=== PATIENT | male | born 1940 | race Two or more races ===

== ENCOUNTER 2018-04-04 16:46 | Inpatient (IN) | payer MEDICARE, MEDICAID ==
--- NOTE | 2018-04-04 16:55 | ED Physician Chart ---
ED Chief Complaint/HPI - Patient Information Date Seen:: 04/04/18 Time Seen:: 16:45 Chief Complaint:: Urinary Retention History of Present Illness:: onset x 3 days of AMS, ALOC, and urinary retention; no report of trauma, H/As, S /T, neck pain, C/P, SOB, Abd. Pain, A/N/V/D/C, fever, chills, or bleeding Historian:: Patient, EMS Review:: Nurse's Note Reviewed, Old Chart Reviewed, EMS run form Reviewed ED Review of Systems - Review of Systems General/Constitutional: No fever, No chills, No weight loss, Weakness, No diaphoresis, No edema, No loss of appetite Skin: No skin lesions, No rash, No bruising Head: No headache, No light-headedness Eyes: No loss of vision, No pain, No diplopia ENT: No earache, No nasal drainage, No sore throat, No tinnitus Neck: No neck pain, No swelling, No thyromegaly, No stiffness, No mass noted Cardio Vascular: No chest pain, No palpitations, No PND, No orthopnea, No edema Pulmonary: No SOB, No cough, No sputum, No wheezing GI: No nausea, No vomiting, No diarrhea, No pain, No melena, No hematochezia, No constipation, No hematemesis G/U: No dysuria, No frequency, No hematuria, No nacturia, Other (urinary retention) Musculoskeletal: No bone or joint pain, No back pain, No muscle pain Endocrine: No polyuria, No polydipsia Psychiatric: No prior psych history, No depression, No anxiety, No suicidal ideation, No homicidal ideation, No auditory hallucination, No visual hallucination Hematopoietic: No bruising, No lymphadenopathy Allergic/Immuno: No urticaria, No angioedema Neurological: No syncope, No focal symptoms, Weakness, No paresthesia, No headache, No seizure, No dizziness, Confusion, No vertigo ED Past Medical History - Past Medical History Obtainable: Yes Past Medical History: HTN, Dyslipidemia Family History: HTN Social History: Non Smoker, No Alcohol, No Drug Use, Single, Care Facility Surgical History: None Psychiatricy History: None Medication: Reviewed Family Medical History - Family Member Mother History Unknown: Yes ED Physical Exam - Physical Examination General/Constitutional: Awake, Well-developed, well-nourished, Alert, No distress, GCS 15, Non-toxic appearing, Ambulatory Head: Atraumatic Eyes: Lids, conjuctiva normal, PERRL, EOMI Skin: Nl inspection, No rash, No skin lesions, No ecchymosis, Well hydrated, No lymphadenopathy ENMT: External ears, nose nl, TM canals nl, Nasal exam nl, Lips, teeth, gums nl , Oropharynx nl, Tonsils nl Neck: Nontender, Full ROM w/o pain, No JVD, No nuchal rigidity, No bruit, No mass, No stridor Respiratory: Nl effort/Exclusion, Clear to Auscultation, No Wheeze/Rhonchi/Rales Cardio Vascular: RRR, No murmur, gallop, rubs, NL S1 S2, Carotid/Femoral/Distal pulses equal bilaterally GI: No tenderness/rebounding/guarding, No organomegaly, No hernia, Normal BS's, Nondistended, No mass/bruits, No McBurney tenderness, Rectum exam nl Other GI comments:: no pulsatile masses : No CVA tenderness Other comments:: + Suprapubic distention 2ndary to Bladder Distention 2ndary to Urinary Retention Extremities: No tenderness or effusion, Full ROM, normal strength in all extremities, No edema, Normal digits & nails Neuro/Psych: Alert/oriented, DTR's symmetric, Normal sensory exam, Normal motor strength, Judgement/insight normal, Mood normal, Normal gait, No focal deficits Other Neuro/Psych comments:: no focal signs Misc: Normal back, No paraspinal tenderness ED Labs/Radiology/EKG Results - Lab Results Comments:: Reviewed - Radiology Results Comments:: CXR: NAD - EKG Interpretations EKG Time:: 17:27 Rate & Rhythm: 56; SB Comments:: non-specific st-t changes ED Septic Shock - . Is Septic Shock (SBP<90, OR Lactate>4 mmol\L) present?: No ED Reassessment (Disposition) - Reassessment Reassessment Condition:: Improved - Diagnosis Diagnosis:: Dx: Urinary Retention; Hyponatremia; Hyperglycemia; Hypoalbuminemia; Bradycardia ; Hematuria; UTI; Sepsis - Aftercare/Follow up Instructions Aftercare/Follow-Up Instructions:: Counseled pt regarding lab results/diagnosis & need follow up, Counseled pt & family regarding lab results/diagnosis & need follow up - Patient Disposition Discharge/Transfer:: Acute Care w/in this hosp Accepting Physician:: Dr. Brittany Espitia Time Called:: 1899 Time Responded:: 19:00 Admitted to:: Telemetry Spoke to:: Dr. Brittany Espitia Admitting Medical Physician:: Dr. Brittany Espitia Condition at Disposition:: Stable, Improved
[2018-04-04 17:35] LABS: % BASOPHILS 1.2 % (0.0-2.0); % LYMPHOCYTES 33.9 % (20.0-50.0); % MONOCYTES 5.3 % (2.0-10.0); % NEUTROPHILS 55.6 % (40.0-80.0); BASOPHILE ABSOLUTE 0.1 Th/cumm (0-0.2); EOSINOPHILE ABSOLUTE 0.2 Th/cmm (0.1-0.4); HEMATOCRIT 44.1 % (41.0-60); HEMOGLOBIN 14.6 gm/dL (12-16); LYMPHOCYTE ABSOLUTE 1.9 Th/cmm (1.5-3.0); MEAN CELL VOLUME 85.9 fl (80-99); MEAN CORPUSCULAR HEMOGLOBIN 28.5 pg (27.0-31.0); MEAN CORPUSCULAR HGB CONC 33.1 pg (28.0-36.0); MEAN PLATELET VOLUME 8.4 fl; MONOCYTE ABSOLUTE 0.3 Th/cmm (0.3-1.0); NEUTROPHILE ABSOLUTE 3.1 Th/cmm (1.8-8.0); PLATELET COUNT 237 Th/cmm (150-400); RED BLOOD COUNT 5.13 Mil/cmm (3.80-5.80); RED CELL DISTRIBUTION WIDTH 12.9 % (11.5-20.0); WHITE BLOOD COUNT 5.6 Th/cmm (4.8-10.8)
[2018-04-04 17:51] LABS: INR 1.04 (0.5-1.4); PROTHROMBIN TIME (TEST) 10.8 SECONDS (9.5-11.5)
[2018-04-04 17:52] LABS: ALB/GLOB RATIO 1.2 (1.0-1.8); ALBUMIN 3.6 gm/dL (4.2-5.5); ALKALINE PHOSPHATASE 81 U/L (34-104); ANION GAP 12.2 (7.0-16.0); BILIRUBIN,TOTAL 0.4 mg/dL (0.3-1.0); BUN - UREA NITROGEN 20 mg/dL (7-25); CALCIUM SERUM 8.9 mg/dL (8.6-10.3); CHLORIDE 102 mEq/L (98-107); CREATININE - SERUM 1.5 mg/dL (0.7-1.3); CREATININE KINASE 22 U/L (30-223); GLUCOSE 122 mg/dL (70-105); POTASSIUM SERUM 4.2 mEq/L (3.5-5.1); SGOT 14 U/L (13-39); SGPT/ALT 15 U/L (7-52); SODIUM SERUM 135 mEq/L (136-145); TOTAL PROTEIN,SERUM 6.5 gm/dL (6.0-8.3)
[2018-04-04 18:04] LABS: URINE SOURCE MIDSTREAM
[2018-04-04 18:24] LABS: URINE BILIRUBIN NEGATIVE (NEGATIVE); URINE BLOOD SMALL (NEGATIVE); URINE GLUCOSE (UA) NEGATIVE (NEGATIVE); URINE KETONE NEGATIVE (NEGATIVE); URINE LEUKOCYTE ESTERASE MODERATE (NEGATIVE); URINE MICROSCOPIC INDICATED? YES; URINE NITRATE POSITIVE (NEGATIVE); URINE PROTEIN NEGATIVE (NEGATIVE); URINE UROBILINOGEN 0.2 E.U./dL (0.2 - 1.0)
[2018-04-04 18:28] LABS: URINE CLARITY HAZY (CLEAR); URINE COLOR YELLOW
[2018-04-04 18:40] LABS: TROP I < 0.01 ng/mL (0.01-0.05)
[2018-04-04 18:58] LABS: URINE BACTERIA MANY /hpf (NONE SEEN); URINE EPITHELIAL CELLS FEW /lpf (FEW)
[2018-04-04] MEDS ORDERED: cefTRIAXone 1 GM in Sodium Chloride 0.9% 50 ML IV ONE (19:29)
[2018-04-04 22:32] VITALS: BP 134/74
[2018-04-04] MEDS: cefTRIAXone 1 GM in Sodium Chloride 0.9% 50 ML IV SCH (23:23)
--- NOTE | 2018-04-05 05:21 | History & Physical ---
ADMIT DATE: 04/05/2018 CHIEF COMPLAINT: Urinary retention. HISTORY OF PRESENT ILLNESS: The patient is a 77-year-old male with a past medical history of hypertension, who dropped by some unknown people ____ to the ER for change in mental status. The patient also found to have urinary retention. On initial evaluation, the patient was afebrile and patient's WBC count was 5600. Creatinine was 1.5. Urinalysis showed pyuria and bacteriuria. The patient was admitted with diagnosis of UTI. Rocephin IV was given in the ER and continued. ALLERGIES: NKDA. MEDICATIONS: There is no information medication. PAST MEDICAL HISTORY: Includes hypertension. SOCIAL HISTORY: The patient stated that he lives in [place]. No history of smoking, alcohol or drug use. REVIEW OF SYSTEMS: GENERAL: The patient denies any fever or chills. HEENT: No diplopia, no photophobia, no sore throat. RESPIRATORY: No cough, no shortness of breath. CARDIOVASCULAR: No chest pain or palpitation. GASTROINTESTINAL: No nausea, no vomiting, no diarrhea, no constipation. GENITOURINARY: No dysuria. NEUROLOGIC: No headache, no dizziness, no focal weakness. PHYSICAL EXAMINATION: GENERAL: The patient is demented. VITAL SIGNS: Current vital signs shows temperature is 97 degrees Fahrenheit, pulse 58, respiration 20, blood pressure 134/74. GENERAL: The patient is comfortable, lying in the bed, not in acute distress. HEENT: Head is normocephalic, atraumatic. Oral cavity moist, pink tongue. Eyes: Pallor is present, no icterus. PERRLA, EOMI. NECK: Supple, no JVD, no carotid bruit. Trachea in midline. CHEST: Bilateral breath sounds. No crackles or wheezing. HEART: S1, S2 within normal limits. Regular rhythm. No murmur, no gallop. ABDOMEN: Soft, nontender, nondistended. Bowel sounds present. There is a Daugherty catheter in place. BACK: No spinal nor CVA tenderness. EXTREMITIES: No cyanosis, no clubbing, no edema. NEUROLOGIC: Alert, awake, follows the command. LABORATORY DATA: Current lab shows WBC of 5600, hemoglobin 14.6, platelets are 237,000, neutrophils 55.6%. INR 1.04. Sodium is 135, potassium 4.2, chloride 102, bicarbonate is 25, BUN is 20, creatinine 1.5 and glucose is 122. Lactic acid 1.15. LFTs are reviewed. Urinalysis showed positive nitrite, leukocyte esterase moderate, WBC 10-25, many bacteria. IMPRESSION: 1. Urinary tract infection. 2. Renal insufficiency, azotemia. 3. Hypertension. 4. Dementia. RECOMMENDATIONS AND PLAN: We will continue Rocephin. Check renal ultrasound. The patient might have prostatomegaly, BPH, ____. We will ask for Nephrology consult, Dr. Warren Rhodes. 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 JOB# [id number] GET
[2018-04-05 05:23] LABS: % BASOPHILS 0.4 % (0.0-2.0); % EOSINOPHILS 3.4 % (0.0-5.0); % LYMPHOCYTES 26.1 % (20.0-50.0); % MONOCYTES 5.2 % (2.0-10.0); % NEUTROPHILS 64.9 % (40.0-80.0); EOSINOPHILE ABSOLUTE 0.2 Th/cmm (0.1-0.4); HEMATOCRIT 42.2 % (41.0-60); LYMPHOCYTE ABSOLUTE 1.6 Th/cmm (1.5-3.0); MEAN CELL VOLUME 84.5 fl (80-99); MEAN CORPUSCULAR HEMOGLOBIN 28.1 pg (27.0-31.0); MEAN CORPUSCULAR HGB CONC 33.2 pg (28.0-36.0); MONOCYTE ABSOLUTE 0.3 Th/cmm (0.3-1.0); NEUTROPHILE ABSOLUTE 4.2 Th/cmm (1.8-8.0); PLATELET COUNT 216 Th/cmm (150-400); RED BLOOD COUNT 4.99 Mil/cmm (3.80-5.80); RED CELL DISTRIBUTION WIDTH 12.6 % (11.5-20.0); WHITE BLOOD COUNT 6.3 Th/cmm (4.8-10.8)
[2018-04-05 06:25] LABS: ALB/GLOB RATIO 1.2 (1.0-1.8); ALBUMIN 3.3 gm/dL (4.2-5.5); ALKALINE PHOSPHATASE 81 U/L (34-104); BILIRUBIN,TOTAL 0.5 mg/dL (0.3-1.0); BUN - UREA NITROGEN 18 mg/dL (7-25); CALCIUM SERUM 8.9 mg/dL (8.6-10.3); CARBON DIOXIDE 26.3 mEq/L (21.0-31.0); CHLORIDE 106 mEq/L (98-107); GLUCOSE 117 mg/dL (70-105); POTASSIUM SERUM 4.3 mEq/L (3.5-5.1); SGOT 12 U/L (13-39); SGPT/ALT 14 U/L (7-52); SODIUM SERUM 142 mEq/L (136-145)
--- NOTE | 2018-04-05 09:08 | Diagnostic Imaging Report ---
Portable chest x-ray HISTORY: Pain The heart appears somewhat enlarged. No focal pulmonary processes. No hilar or mediastinal abnormalities. IMPRESSION: 1. No acute abnormalities 2. Cardiomegaly
--- NOTE | 2018-04-05 14:56 | Consultation ---
DATE OF CONSULTATION: 04/05/2018 RENAL CONSULTATION LOCATION: [facility], room #15, bed 2. ATTENDING PHYSICIAN: Dr. Rod Espitia. IDENTIFICATION: I thank you very much, Dr. Rod Espitia for this consult. HISTORY OF PRESENT ILLNESS: This is a 77-year-old male patient, seems to be confused, not able to give much history, answering the questions very shortly. Old chart has been reviewed for history. The patient is either living at home or living at here some friend's home, but was brought to the Emergency Room of [facility] and then the people who brought the patient in left. The patient was confused and patient had urinalysis, shows pyuria. Creatinine was elevated at 1.5. The patient received IV Rocephin and IV fluid in the Emergency Room. The patient is making urine. The patient was transferred to the floor. Renal consultation has been requested. According to nursing staff since the patient has been here that patient does not have any vomiting or diarrhea. There is no history of seizures or loss of consciousness. The patient has become more alert in the last 24 hours than before, but still he is not giving a lot of meaningful history. ALLERGIES: Not known. MEDICATIONS: No information available. PAST MEDICAL HISTORY: The patient states that he has high blood pressure. SOCIAL HISTORY: The patient denies alcoholism or smoking. The patient states that he lives in [place]. PHYSICAL EXAMINATION: GENERAL: A 77-year-old male patient. VITAL SIGNS: Temperature 97.3, pulse 60, blood pressure 133/77. Yesterday's intake and output not available. Today, the patient has cloudy colored urine about 400 mL in Daugherty catheter. HEENT: Normocephalic and atraumatic. Eyes: Sclerae is nonicteric. Conjunctivae are pale. Pupils reactive. Ear, nose and throat: No bleeding or discharge. LUNGS: Good air entry. No rales or rhonchi. HEART: Regular. No rub or gallop. ABDOMEN: Soft, not distended. Bowel sounds present. EXTREMITIES: No edema of the legs. No calf tenderness. LABORATORY DATA: WBC yesterday was 5.6, today 6.3; hemoglobin 14.6, today 14. Sodium yesterday was 135, today improved to 142; potassium has improved from 4.2-4.3, BUN 20, creatinine 1.5 yesterday and today 1.0, blood sugar 117 today. LFTs normal. Urinalysis: Nitrite positive. Urine blood positive, WBC positive, bacteria many. Urine culture not available. IMPRESSION: 1. Acute kidney injury, improving. 2. Urinary tract infection. 3. History of hypertension. 4. Change in mental status. 5. Dementia. 6. Mild anemia. PLAN: The patient's acute kidney injury has improved. The patient is appropriately on IV antibiotics for a UTI. The patient has a good urine output at this time. Kidney ultrasound has been done, but report is not available. I will suggest to continue current treatment on this patient. Since the patient's acute kidney injury has improved with normal electrolytes, I will sign off this case and please call me if necessary. [facility]# [id number]
[2018-04-06] MEDS: cefTRIAXone 1 GM in Sodium Chloride 0.9% 50 ML IV SCH (00:40)
--- NOTE | 2018-04-06 09:49 | Diagnostic Imaging Report ---
Renal ultrasound HISTORY: Pain, pyelonephritis The right kidney measures 9.3 x 5.3 x 5.9 cm. Normal cortical contour and echogenicity. No focal lesions. No hydronephrosis. The left kidney is normal in size (10.4 x 5.4 x 5.5 cm). No focal lesions. No hydronephrosis. Evaluation urinary bladder limited due to lack of distention. There appears to be an enlarged prostate gland (6.6 x 6.2 x 5.3 cm). IMPRESSION: 1. Negative examination of the kidneys 2. Findings consistent with an enlarged prostate gland. Urinary bladder could not be well evaluated due to lack of distention.
--- NOTE | 2018-04-07 05:03 | Progress Notes ---
DATE: 04/06/2018 SUBJECTIVE: The patient lying in the bed, not in acute distress, no fever, no chills. OBJECTIVE: VITAL SIGNS: Current vital signs shows temperature is 97.4, pulse 64, respirations 17, blood pressure 134/81. GENERAL: The patient is comfortable lying in the bed, not in acute distress. HEENT: Head is normocephalic, atraumatic. Oral cavity moist, pink tongue. NECK: Supple, no JVD, no carotid bruit. Trachea in midline. CHEST: Bilateral breath sounds. No crackles or wheezing. HEART: S1, S2 within normal limits. Regular rhythm. No murmur, no gallop. ABDOMEN: Soft, nontender, nondistended. Bowel sounds present. EXTREMITIES: No cyanosis, no clubbing, no edema. NEUROLOGIC: Alert and awake, but confused. LABORATORY DATA: Current lab shows WBC count 6300, hemoglobin 14, hematocrit 42.2, platelets are 216,000. Neutrophil is 64.9. Sodium 142, potassium 4.3, chloride 106, bicarbonate is 26.3, BUN is 18, creatinine 1, glucose is 117. Urinalysis showed positive nitrite, moderate leukoesterase and wbc 10-25 and many bacteria. Urine culture is growing gram-negative rods. Blood culture 2 sets are negative. MRSA screen is negative. IMPRESSION: 1. Urinary tract infection. 2. Acute renal failure, improved. 3. Hypertension. 4. Dementia. RECOMMENDATION: Continue Rocephin at this time. Follow the urine culture report and go from there. I did a renal ultrasound showed negative examination of the kidney. Findings considered unless post-decline due to bladder could not be evaluated. ADDITIONAL PLAN: We will call Dr. Myers to see the patient. JOB# [id number]
[2018-04-07] MEDS ORDERED: POLYETHYLENE GLYCOL 3350 17 GM PACK PO ONE (18:30)
[2018-04-07] MEDS: cefTRIAXone 1 GM in Sodium Chloride 0.9% 50 ML IV SCH (22:08)
--- NOTE | 2018-04-09 00:01 | Infectious Disease Prog Note ---
Infectious Disease Subjective - Review of Systems Service Date: 04/08/18 Subjective: There is no new change, no fever. Infectious Disease Objective - Results Result Diagrams: 04/05/18 05:14 04/05/18 05:14 Recent Labs: Laboratory Last Values WBC 6.3 Th/cmm (4.8-10.8) 04/05/18 05:14 RBC 4.99 Mil/cmm (3.80-5.80) 04/05/18 05:14 Hgb 14.0 gm/dL (12-16) 04/05/18 05:14 Hct 42.2 % (41.0-60) 04/05/18 05:14 MCV 84.5 fl (80-99) 04/05/18 05:14 MCH 28.1 pg (27.0-31.0) 04/05/18 05:14 MCHC Differential 33.2 pg (28.0-36.0) 04/05/18 05:14 RDW 12.6 % (11.5-20.0) 04/05/18 05:14 Plt Count 216 Th/cmm (150-400) 04/05/18 05:14 MPV 8.0 fl 04/05/18 05:14 Neutrophils % 64.9 % (40.0-80.0) 04/05/18 05:14 Lymphocytes % 26.1 % (20.0-50.0) 04/05/18 05:14 Monocytes % 5.2 % (2.0-10.0) 04/05/18 05:14 Eosinophils % 3.4 % (0.0-5.0) 04/05/18 05:14 Basophils % 0.4 % (0.0-2.0) 04/05/18 05:14 PT 10.8 SECONDS (9.5-11.5) 04/04/18 17:20 INR 1.04 (0.5-1.4) 04/04/18 17:20 PTT (Actin FS) 29.5 SECONDS (26.0-38.0) 04/04/18 17:20 Sodium 142 mEq/L (136-145) 04/05/18 05:14 Potassium 4.3 mEq/L (3.5-5.1) 04/05/18 05:14 Chloride 106 mEq/L (98-107) 04/05/18 05:14 Carbon Dioxide 26.3 mEq/L (21.0-31.0) 04/05/18 05:14 Anion Gap 14.0 (7.0-16.0) 04/05/18 05:14 BUN 18 mg/dL (7-25) 04/05/18 05:14 Creatinine 1.0 mg/dL (0.7-1.3) 04/05/18 05:14 Est GFR ( Amer) TNP 04/05/18 05:14 Est GFR (Non-Af Amer) TNP 04/05/18 05:14 BUN/Creatinine Ratio 18.0 04/05/18 05:14 Glucose 117 mg/dL (70-105) H 04/05/18 05:14 Whole Bld Lactic Acid 1.15 mmol/L (0.60-1.99) 04/04/18 17:20 Calcium 8.9 mg/dL (8.6-10.3) 04/05/18 05:14 Total Bilirubin 0.5 mg/dL (0.3-1.0) 04/05/18 05:14 AST 12 U/L (13-39) L 04/05/18 05:14 ALT 14 U/L (7-52) 04/05/18 05:14 Alkaline Phosphatase 81 U/L (34-104) 04/05/18 05:14 Creatine Kinase 22 U/L (30-223) L 04/04/18 17:20 Troponin I < 0.01 ng/mL (0.01-0.05) L 04/04/18 17:20 Total Protein 6.0 gm/dL (6.0-8.3) 04/05/18 05:14 Albumin 3.3 gm/dL (4.2-5.5) L 04/05/18 05:14 Globulin 2.7 gm/dL 04/05/18 05:14 Albumin/Globulin Ratio 1.2 (1.0-1.8) 04/05/18 05:14 Urine Source MIDSTREAM 04/04/18 17:21 Urine Color YELLOW 04/04/18 17:21 Urine Clarity HAZY (CLEAR) 04/04/18 17:21 Urine pH 6.0 (4.6 - 8.0) 04/04/18 17:21 Ur Specific [place] 1.010 (1.005-1.030) 04/04/18 17:21 Urine Protein NEGATIVE mg/dL (NEGATIVE) 04/04/18 17:21 Urine Glucose (UA) NEGATIVE mg/dL (NEGATIVE) 04/04/18 17:21 Urine Ketones NEGATIVE mg/dL (NEGATIVE) 04/04/18 17:21 Urine Blood SMALL (NEGATIVE) H 04/04/18 17:21 Urine Nitrate POSITIVE (NEGATIVE) H 04/04/18 17:21 Urine Bilirubin NEGATIVE (NEGATIVE) 04/04/18 17:21 Urine Urobilinogen 0.2 E.U./dL (0.2 - 1.0) 04/04/18 17:21 Ur Leukocyte Esterase MODERATE (NEGATIVE) H 04/04/18 17:21 Urine RBC 2-5 /hpf (0-5) H 04/04/18 17:21 Urine WBC 10-25 /hpf (0-5) H 04/04/18 17:21 Ur Epithelial Cells FEW /lpf (FEW) 04/04/18 17:21 Urine Bacteria MANY /hpf (NONE SEEN) H 04/04/18 17:21 - Physical Exam Vitals and I&O: Vital Signs Temp 97.2 F 04/08/18 20:00 Pulse 67 04/08/18 20:00 Resp 17 04/08/18 20:00 BP 130/70 04/08/18 20:00 Pulse Ox 97 04/08/18 20:00 Intake & Output 04/08/18 04/08/18 04/09/18 06:59 18:59 06:59 Intake Total 200 661 Output Total 1250 775 Balance -1050 -114 Weight (lbs) 68.946 kg 69.808 kg Intake: Intake, IV Amount 111 Tobramycin Sulfate 440 mg 111 In Sodium Chloride 0.9% 100 ml @ 100 mls/hr IV Q36H [facility] Rx#:[id number] Oral 200 550 Output: Urine 1250 775 Other: # Voids 750 # Bowel Movements 0 1 Weight Source Bedscale Bedscale Active Medications: Current Medications Tobramycin Sulfate 440 mg/ (Sodium Chloride) 111 mls @ 100 mls/hr IV Q36H ALONDRA Stop: 06/07/18 12:29 Last Infusion: 04/08/18 18:17 Dose: Infused Miscellaneous (Tobramycin Iv Per Pharmacy) 1 ea MC PRN PRN PRN Reason: PROTOCOL Stop: 06/07/18 10:33 Pantoprazole Sodium (Protonix) 40 mg IVP DAILY ALONDRA Stop: 06/04/18 08:59 Last Admin: 04/08/18 09:18 Dose: 40 mg General: no acute distress, well developed, well nourished HEENT: atraumatic, normocephalic, PERRLA Neck: supple, no thyromegaly Cardiovascular: S1S2, regular Lungs: clear to auscultation bilaterally, clear to percussion Abdomen: soft, no tender, no distended Extremities: no cyanosis, no clubbing Neurological: awake, alert, oriented Skin: intact Infectious Disease Assmt/Plan - Problem List Patient Problems: All Active Problems URINARY RETENTION; SNF PLACEMENT (Acute) - Assessment Assessment: 1. Urinary tract infection. - Pseudomonas. 2. Renal insufficiency, azotemia. 3. Hypertension. 4. Dementia. - Plan Plan: Continue Tobramycin for 7 days. Nutritional Asmnt/Malnutr-PDOC - Dietary Evaluation Malnutrition Findings (Please click <Entered> for more info): Nutritional Asmnt/Malnutrition Start: 04/08/18 17: 13 Text: Status: Complete Freq: Protocol: Document 04/08/18 17:13 LCHENG (Rec: 04/08/18 17:16 [id number]) Nutritional Asmnt/Malnutrition Patient General Information Nutritional Screening Moderate Risk Diagnosis PNA, metabolic encerphalopy Pertinent Medical Hx/Surgical Hx HTN, dyslipidemia Subjective Information Pt seen sleeping in bed at time of visit, Turkmen speaking per nurse note. Per EMR, PO intake 50-75% since admitted. Current Diet Order/ Nutrition Support regular Pertinent Medications protonix Pertinent Labs 04/05 glucose 117, alb 3.3 04/04 na 135, Cr 1.5, glucose 122 Nutritional Hx/Data Height 1.68 m Height (Calculated Centimeters) 167.6 Current Weight (lbs) 68.946 kg Weight (Calculated Kilograms) 68.9 Weight (Calculated Grams) 96311.0 [place] Body Weight 142 Body Mass Index (BMI) 24.5 Weight Status Approriate GI Symptoms GI Symptoms None Difficult in: None Skin Integrity/Comment: intact Current %PO Fair (50-74%) Estimated Nutritional Goals BEE in Kcals: Using Current wt Calories/Kcals/Kg 25-30 Kcals Calculated 9746-9550 Protein: Using Current wt Protein g/k-1.2 Protein Calculated 69-83 Fluid: ml 1725-2070ml (1ml/kcal) Malnutrition Alert Is there a minimum of two criteria No selected? Query Text:Check all the applicable criteria. A minimum of two criteria are recommended for diagnosis of either severe or non-severe malnutrition. Malnutrition Related to Morbid Obesity Malnutrition related to morbid obesity No Intervention/Recommendation Comments 1. Continue with regular diet as ordered. 2. Monitor PO intake, wt, labs and skin integrity 3. F/U as moderate risk in 3-5 days. Expected Outcomes/Goals Expected Outcomes/Goals 1. PO intake to meet at least 75% of nutritional needs. 2. Wt stability, skin to remain intact, labs to approach WNL.
[2018-04-09 06:02] LABS: % BASOPHILS 0.6 % (0.0-2.0); % EOSINOPHILS 2.6 % (0.0-5.0); % LYMPHOCYTES 28.5 % (20.0-50.0); % MONOCYTES 5.1 % (2.0-10.0); % NEUTROPHILS 63.2 % (40.0-80.0); EOSINOPHILE ABSOLUTE 0.2 Th/cmm (0.1-0.4); HEMATOCRIT 45.5 % (41.0-60); HEMOGLOBIN 14.8 gm/dL (12-16); LYMPHOCYTE ABSOLUTE 1.7 Th/cmm (1.5-3.0); MEAN CELL VOLUME 86.1 fl (80-99); MEAN CORPUSCULAR HGB CONC 32.5 pg (28.0-36.0); MEAN PLATELET VOLUME 8.5 fl; MONOCYTE ABSOLUTE 0.3 Th/cmm (0.3-1.0); NEUTROPHILE ABSOLUTE 3.7 Th/cmm (1.8-8.0); PLATELET COUNT 242 Th/cmm (150-400); RED BLOOD COUNT 5.29 Mil/cmm (3.80-5.80); RED CELL DISTRIBUTION WIDTH 12.5 % (11.5-20.0); WHITE BLOOD COUNT 5.9 Th/cmm (4.8-10.8)
[2018-04-09 06:49] LABS: BUN - UREA NITROGEN 21 mg/dL (7-25); CALCIUM SERUM 8.9 mg/dL (8.6-10.3); CARBON DIOXIDE 23.9 mEq/L (21.0-31.0); CHLORIDE 106 mEq/L (98-107); CREATININE - SERUM 1.1 mg/dL (0.7-1.3); GLUCOSE 146 mg/dL (70-105); POTASSIUM SERUM 3.9 mEq/L (3.5-5.1); SODIUM SERUM 139 mEq/L (136-145)
--- NOTE | 2018-04-09 15:23 | General Progress Note ---
Subjective - Review of Systems Events since last encounter: pt. is confused, no acute distress Objective - Results Result Diagrams: 04/09/18 05:54 04/09/18 05:54 Recent Labs: Laboratory Last Values WBC 5.9 Th/cmm (4.8-10.8) 04/09/18 05:54 RBC 5.29 Mil/cmm (3.80-5.80) 04/09/18 05:54 Hgb 14.8 gm/dL (12-16) 04/09/18 05:54 Hct 45.5 % (41.0-60) 04/09/18 05:54 MCV 86.1 fl (80-99) 04/09/18 05:54 MCH 28.0 pg (27.0-31.0) 04/09/18 05:54 MCHC Differential 32.5 pg (28.0-36.0) 04/09/18 05:54 RDW 12.5 % (11.5-20.0) 04/09/18 05:54 Plt Count 242 Th/cmm (150-400) 04/09/18 05:54 MPV 8.5 fl 04/09/18 05:54 Neutrophils % 63.2 % (40.0-80.0) 04/09/18 05:54 Lymphocytes % 28.5 % (20.0-50.0) 04/09/18 05:54 Monocytes % 5.1 % (2.0-10.0) 04/09/18 05:54 Eosinophils % 2.6 % (0.0-5.0) 04/09/18 05:54 Basophils % 0.6 % (0.0-2.0) 04/09/18 05:54 PT 10.8 SECONDS (9.5-11.5) 04/04/18 17:20 INR 1.04 (0.5-1.4) 04/04/18 17:20 PTT (Actin FS) 29.5 SECONDS (26.0-38.0) 04/04/18 17:20 Sodium 139 mEq/L (136-145) 04/09/18 05:54 Potassium 3.9 mEq/L (3.5-5.1) 04/09/18 05:54 Chloride 106 mEq/L (98-107) 04/09/18 05:54 Carbon Dioxide 23.9 mEq/L (21.0-31.0) 04/09/18 05:54 Anion Gap 13.0 (7.0-16.0) 04/09/18 05:54 BUN 21 mg/dL (7-25) 04/09/18 05:54 Creatinine 1.1 mg/dL (0.7-1.3) 04/09/18 05:54 Est GFR ( Amer) TNP 04/09/18 05:54 Est GFR (Non-Af Amer) TNP 04/09/18 05:54 BUN/Creatinine Ratio 19.1 04/09/18 05:54 Glucose 146 mg/dL (70-105) H 04/09/18 05:54 Whole Bld Lactic Acid 1.15 mmol/L (0.60-1.99) 04/04/18 17:20 Calcium 8.9 mg/dL (8.6-10.3) 04/09/18 05:54 Total Bilirubin 0.5 mg/dL (0.3-1.0) 04/05/18 05:14 AST 12 U/L (13-39) L 04/05/18 05:14 ALT 14 U/L (7-52) 04/05/18 05:14 Alkaline Phosphatase 81 U/L (34-104) 04/05/18 05:14 Creatine Kinase 22 U/L (30-223) L 04/04/18 17:20 Troponin I < 0.01 ng/mL (0.01-0.05) L 04/04/18 17:20 Total Protein 6.0 gm/dL (6.0-8.3) 04/05/18 05:14 Albumin 3.3 gm/dL (4.2-5.5) L 04/05/18 05:14 Globulin 2.7 gm/dL 04/05/18 05:14 Albumin/Globulin Ratio 1.2 (1.0-1.8) 04/05/18 05:14 Urine Source [place] 04/04/18 17:21 Urine Color YELLOW 04/04/18 17:21 Urine Clarity HAZY (CLEAR) 04/04/18 17:21 Urine pH 6.0 (4.6 - 8.0) 04/04/18 17:21 Ur Specific [place] 1.010 (1.005-1.030) 04/04/18 17:21 Urine Protein NEGATIVE mg/dL (NEGATIVE) 04/04/18 17:21 Urine Glucose (UA) NEGATIVE mg/dL (NEGATIVE) 04/04/18 17:21 Urine Ketones NEGATIVE mg/dL (NEGATIVE) 04/04/18 17:21 Urine Blood SMALL (NEGATIVE) H 04/04/18 17:21 Urine Nitrate POSITIVE (NEGATIVE) H 04/04/18 17:21 Urine Bilirubin NEGATIVE (NEGATIVE) 04/04/18 17:21 Urine Urobilinogen 0.2 E.U./dL (0.2 - 1.0) 04/04/18 17:21 Ur Leukocyte Esterase MODERATE (NEGATIVE) H 04/04/18 17:21 Urine RBC 2-5 /hpf (0-5) H 04/04/18 17:21 Urine WBC 10-25 /hpf (0-5) H 04/04/18 17:21 Ur Epithelial Cells FEW /lpf (FEW) 04/04/18 17:21 Urine Bacteria MANY /hpf (NONE SEEN) H 04/04/18 17:21 Tobramycin Trough 9.1 ug/mL (0.5-2.0) H* 04/08/18 22:38 - Physical Exam Vitals and I&O: Vital Signs Temp 97.4 F 04/09/18 11:45 Pulse 70 04/09/18 11:45 Resp 18 04/09/18 11:45 BP 132/65 04/09/18 11:45 Pulse Ox 98 04/09/18 11:45 Intake & Output 04/08/18 04/09/18 04/09/18 18:59 06:59 18:59 Intake Total 661 340 Output Total 775 500 Balance -114 -160 Weight (lbs) 69.808 kg 68.674 kg Intake: Intake, IV Amount 111 Tobramycin Sulfate 440 mg 111 In Sodium Chloride 0.9% 100 ml @ 100 mls/hr IV Q36H [facility] Rx#:[id number] Oral 550 340 Output: Urine 775 500 Other: # Bowel Movements 1 1 Weight Source Bedscale Bedscale Active Medications: Current Medications Tobramycin Sulfate 140 mg/ (Sodium Chloride) 103.5 mls @ 200 mls/hr IV Q24H [facility] Stop: 06/09/18 08:59 Miscellaneous (Tobramycin Iv Per Pharmacy) 1 ea MC PRN PRN PRN Reason: PROTOCOL Stop: 06/07/18 10:33 Pantoprazole Sodium (Protonix) 40 mg IVP DAILY [facility] Stop: 06/04/18 08:59 Last Admin: 04/09/18 08:43 Dose: 40 mg General: Alert, No acute distress HEENT: Atraumatic Neck: Supple Cardiovascular: Regular rate Lungs: Clear to auscultation Abdomen: Bowel sounds Extremities: Pulses Psych/Mental Status: Other (confused ) Assessment/Plan - Problem List Patient Problems: All Active Problems URINARY RETENTION; SNF PLACEMENT (Acute) - Assessment Assessment: UTI renal insufficiency HTN dementia - Plan Plan: cpm Nutritional Asmnt/Malnutr-PDOC - Dietary Evaluation Malnutrition Findings (Please click <Entered> for more info): Nutritional Asmnt/Malnutrition Start: 04/08/18 17: 13 Text: Status: Complete Freq: Protocol: Document 04/08/18 17:13 [email or web address] (Rec: 04/08/18 17:16 [email or web address] [email or web address]) Nutritional Asmnt/Malnutrition Patient General Information Nutritional Screening Moderate Risk Diagnosis PNA, metabolic encerphalopy Pertinent Medical Hx/Surgical Hx HTN, dyslipidemia Subjective Information Pt seen sleeping in bed at time of visit, Kyrgyz speaking per nurse note. Per EMR, PO intake 50-75% since admitted. Current Diet Order/ Nutrition Support regular Pertinent Medications protonix Pertinent Labs 04/05 glucose 117, alb 3.3 04/04 na 135, Cr 1.5, glucose 122 Nutritional Hx/Data Height 1.68 m Height (Calculated Centimeters) 167.6 Current Weight (lbs) 68.946 kg Weight (Calculated Kilograms) 68.9 Weight (Calculated Grams) 84417.0 [place] Body Weight 142 Body Mass Index (BMI) 24.5 Weight Status Approriate GI Symptoms GI Symptoms None Difficult in: None Skin Integrity/Comment: intact Current %PO Fair (50-74%) Estimated Nutritional Goals BEE in Kcals: Using Current wt Calories/Kcals/Kg 25-30 Kcals Calculated 7970-0197 Protein: Using Current wt Protein g/k-1.2 Protein Calculated 69-83 Fluid: ml 1725-2070ml (1ml/kcal) Malnutrition Alert Is there a minimum of two criteria No selected? Query Text:Check all the applicable criteria. A minimum of two criteria are recommended for diagnosis of either severe or non-severe malnutrition. Malnutrition Related to Morbid Obesity Malnutrition related to morbid obesity No Intervention/Recommendation Comments 1. Continue with regular diet as ordered. 2. Monitor PO intake, wt, labs and skin integrity 3. F/U as moderate risk in 3-5 days. Expected Outcomes/Goals Expected Outcomes/Goals 1. PO intake to meet at least 75% of nutritional needs. 2. Wt stability, skin to remain intact, labs to approach WNL.
== END 2018-04-09 21:15 | DRG 871 ==
LOC: ER 16:46 → MSI 21:33
PROVIDERS: ADMIT Internal Medicine; ATTEND Internal Medicine
DX: A41.9 Sepsis, unspecified organism (principal); G93.41 Metabolic encephalopathy; N39.0 Urinary tract infection, site not specified; E87.1 Hypo-osmolality and hyponatremia; N17.9 Acute kidney failure, unspecified; R00.1 Bradycardia, unspecified; I12.9 Hypertensive chronic kidney disease with stage 1 through stage 4 chronic kidney disease, or unspecified chronic kidney disease; F03.90 Unspecified dementia, unspecified severity, without behavioral disturbance, psychotic disturbance, mood disturbance, and anxiety; N18.1 Chronic kidney disease, stage 1; E78.5 Hyperlipidemia, unspecified; R31.9 Hematuria, unspecified; R73.9 Hyperglycemia, unspecified; R33.9 Retention of urine, unspecified; D64.9 Anemia, unspecified; B96.5 Pseudomonas (aeruginosa) (mallei) (pseudomallei) as the cause of diseases classified elsewhere; Z82.49 Family history of ischemic heart disease and other diseases of the circulatory system
CPT/HCPCS: 36415-UA; 71045-TC; 76770-TC; 80048-TC; 80053-TC; 80200-TC; 81001-TC; 82550-TC; 83605; 84484-TC; 85025-TC; 85610-TC; 85730-TC; 87086-90; 93005; C9113; J0696; J3260

== ENCOUNTER 2018-10-30 15:25 | Inpatient (IN) | payer MEDICARE, OTHER ==
--- NOTE | 2018-10-30 16:09 | ED Physician Chart ---
ED Chief Complaint/HPI - Patient Information Date Seen:: 10/30/18 Time Seen:: 16:00 Chief Complaint:: decrease activities of daily living History of Present Illness:: Patient at his extended care facility has been exhibiting decreased activities of daily living and generalized weakness. Allergies:: Allergies Allergy/AdvReac Type Severity Reaction Status Date / Time No Known Allergies Allergy Verified 10/30/18 15:46 Historian:: Patient Review:: Transfer documents Reviewed ED Review of Systems - Review of Systems General/Constitutional: No fever, No chills Skin: No skin lesions Head: No headache Eyes: No loss of vision ENT: No earache Neck: No neck pain Cardio Vascular: No chest pain, No palpitations Pulmonary: No SOB GI: No nausea, No vomiting, No diarrhea G/U: No dysuria Musculoskeletal: No bone or joint pain Endocrine: No polyuria Psychiatric: Prior psych history Hematopoietic: No bruising Allergic/Immuno: No urticaria Neurological: No syncope ED Past Medical History - Past Medical History Past Medical History: HTN, DM, Dementia, Other (metabolic encephalopathy; history of urinary retention; major depression; insomnia) Family History: Other (unavailable) Social History: Care Facility Surgical History: other (unavailable) Psychiatricy History: Dementia Family Medical History - Family Member Mother History Unknown: Yes ED Physical Exam - Physical Examination General/Constitutional: Awake, Well-developed, well-nourished, Alert Head: Atraumatic Eyes: Lids, conjuctiva normal Skin: Nl inspection ENMT: External ears, nose nl Neck: No nuchal rigidity Respiratory: Nl effort/Exclusion Cardio Vascular: RRR, No murmur, gallop, rubs Other Cardio Vascular comments:: Heart sounds faint GI: No tenderness/rebounding/guarding : No CVA tenderness Extremities: No tenderness or effusion Neuro/Psych: No focal deficits ED Labs/Radiology/EKG Results - Lab Results Results: Laboratory Results WBC 6.8 Th/cmm (4.8-10.8) 10/30/18 17:15 RBC 4.70 Mil/cmm (3.80-5.80) 10/30/18 17:15 Hgb 13.7 gm/dL (12-16) 10/30/18 17:15 Hct 40.4 % (41.0-60) L 10/30/18 17:15 MCV 86.0 fl (80-99) 10/30/18 17:15 MCH 29.1 pg (27.0-31.0) 10/30/18 17:15 MCHC Differential 33.8 pg (28.0-36.0) 10/30/18 17:15 RDW 13.2 % (11.5-20.0) 10/30/18 17:15 Plt Count 214 Th/cmm (150-400) 10/30/18 17:15 MPV 8.4 fl 10/30/18 17:15 Neutrophils % 73.0 % (40.0-80.0) 10/30/18 17:15 Lymphocytes % 17.2 % (20.0-50.0) L 10/30/18 17:15 Monocytes % 5.6 % (2.0-10.0) 10/30/18 17:15 Eosinophils % 2.9 % (0.0-5.0) 10/30/18 17:15 Basophils % 1.3 % (0.0-2.0) 10/30/18 17:15 Sodium 137 mEq/L (136-145) 10/30/18 17:15 Potassium 4.5 mEq/L (3.5-5.1) 10/30/18 17:15 Chloride 103 mEq/L (98-107) 10/30/18 17:15 Carbon Dioxide 27.6 mEq/L (21.0-31.0) 10/30/18 17:15 Anion Gap 10.9 (7.0-16.0) 10/30/18 17:15 BUN 21 mg/dL (7-25) 10/30/18 17:15 Creatinine 1.4 mg/dL (0.7-1.3) H 10/30/18 17:15 Est GFR ( Amer) TNP 10/30/18 17:15 Est GFR (Non-Af Amer) TNP 10/30/18 17:15 BUN/Creatinine Ratio 15.0 10/30/18 17:15 Glucose 163 mg/dL (70-105) H 10/30/18 17:15 Calcium 9.1 mg/dL (8.6-10.3) 10/30/18 17:15 Urine Source [place] 10/30/18 16:50 Urine Color YELLOW 10/30/18 16:50 Urine Clarity CLEAR (CLEAR) 10/30/18 16:50 Urine pH 6.0 (4.6 - 8.0) 10/30/18 16:50 Ur Specific [place] <= 1.005 (1.005-1.030) 10/30/18 16:50 Urine Protein NEGATIVE mg/dL (NEGATIVE) 10/30/18 16:50 Urine Glucose (UA) NEGATIVE mg/dL (NEGATIVE) 10/30/18 16:50 Urine Ketones NEGATIVE mg/dL (NEGATIVE) 10/30/18 16:50 Urine Blood SMALL (NEGATIVE) H 10/30/18 16:50 Urine Nitrate POSITIVE (NEGATIVE) H 10/30/18 16:50 Urine Bilirubin NEGATIVE (NEGATIVE) 10/30/18 16:50 Urine Urobilinogen 0.2 E.U./dL (0.2 - 1.0) 10/30/18 16:50 Ur Leukocyte Esterase MODERATE (NEGATIVE) H 10/30/18 16:50 Urine RBC 2-5 /hpf (0-5) H 10/30/18 16:50 Urine WBC 10-25 /hpf (0-5) H 10/30/18 16:50 Ur Epithelial Cells NONE SEEN /lpf (FEW) 10/30/18 16:50 Urine Bacteria MODERATE /hpf (NONE SEEN) H 10/30/18 16:50 - Radiology Results Results: Chest x-ray showed cardiomegaly; otherwise was normal - EKG Interpretations Rate & Rhythm: sinus rhythm at a rate of 60 [place]: normal axis Comments:: Low-voltage ED Septic Shock - . Is Septic Shock (SBP<90, OR Lactate>4 mmol\L) present?: No ED Reassessment (Disposition) - Reassessment Reassessment Condition:: Unchanged - Diagnosis Diagnosis:: Altered mental status; urinary tract infection - Patient Disposition Admitted to:: Telemetry Admitting Medical Physician:: Rod Espitia Condition at Disposition:: Stable, Unchanged
[2018-10-30 17:28] LABS: % BASOPHILS 1.3 % (0.0-2.0); % EOSINOPHILS 2.9 % (0.0-5.0); % LYMPHOCYTES 17.2 % (20.0-50.0); % MONOCYTES 5.6 % (2.0-10.0); BASOPHILE ABSOLUTE 0.1 Th/cumm (0-0.2); EOSINOPHILE ABSOLUTE 0.2 Th/cmm (0.1-0.4); HEMATOCRIT 40.4 % (41.0-60); HEMOGLOBIN 13.7 gm/dL (12-16); LYMPHOCYTE ABSOLUTE 1.2 Th/cmm (1.5-3.0); MEAN CORPUSCULAR HEMOGLOBIN 29.1 pg (27.0-31.0); MEAN CORPUSCULAR HGB CONC 33.8 pg (28.0-36.0); MONOCYTE ABSOLUTE 0.4 Th/cmm (0.3-1.0); NEUTROPHILE ABSOLUTE 4.9 Th/cmm (1.8-8.0); PLATELET COUNT 214 Th/cmm (150-400); RED CELL DISTRIBUTION WIDTH 13.2 % (11.5-20.0); WHITE BLOOD COUNT 6.8 Th/cmm (4.8-10.8)
[2018-10-30 17:29] LABS: URINE SOURCE FOLEY PORT
[2018-10-30 17:32] LABS: URINE BILIRUBIN NEGATIVE (NEGATIVE); URINE BLOOD SMALL (NEGATIVE); URINE GLUCOSE (UA) NEGATIVE (NEGATIVE); URINE KETONE NEGATIVE (NEGATIVE); URINE LEUKOCYTE ESTERASE MODERATE (NEGATIVE); URINE MICROSCOPIC INDICATED? YES; URINE NITRATE POSITIVE (NEGATIVE); URINE PROTEIN NEGATIVE (NEGATIVE); URINE UROBILINOGEN 0.2 E.U./dL (0.2 - 1.0)
[2018-10-30 17:44] LABS: ANION GAP 10.9 (7.0-16.0); BUN - UREA NITROGEN 21 mg/dL (7-25); CALCIUM SERUM 9.1 mg/dL (8.6-10.3); CARBON DIOXIDE 27.6 mEq/L (21.0-31.0); CHLORIDE 103 mEq/L (98-107); CREATININE - SERUM 1.4 mg/dL (0.7-1.3); GLUCOSE 163 mg/dL (70-105); POTASSIUM SERUM 4.5 mEq/L (3.5-5.1); SODIUM SERUM 137 mEq/L (136-145)
[2018-10-30 17:52] LABS: URINE CLARITY CLEAR (CLEAR); URINE COLOR YELLOW
[2018-10-30 17:55] LABS: URINE BACTERIA MODERATE /hpf (NONE SEEN); URINE EPITHELIAL CELLS NONE SEEN /lpf (FEW)
[2018-10-30] MEDS ORDERED: Sodium Chloride 0.9% 1,000 ML IV ONE (18:41)
[2018-10-30] MEDS ORDERED: cefTRIAXone 1 GM in Sodium Chloride 0.9% 50 ML IV ONE (18:41)
[2018-10-30 21:48] VITALS: BP 144/70
[2018-10-30] MEDS: D5-0.9%NS 1,000 ML IV SCH (22:04)
--- NOTE | 2018-10-31 10:43 | Diagnostic Imaging Report ---
Portable chest x-ray History: Cough Allowing for portable technique the heart size is normal. No focal pulmonary parenchymal processes. No hilar or mediastinal abnormalities. Impression: No acute abnormalities.
[2018-10-31] MEDS ORDERED: Probiotic Screen MC PRN (12:59)
[2018-10-31] MEDS: D5-0.9%NS 1,000 ML IV SCH (17:03)
[2018-11-01] MEDS ORDERED: Dextrose 50% 50 mL Abboject IVP PRN (03:14)
[2018-11-01] MEDS ORDERED: GLUCAGON HCl 1 MG KIT IM PRN (03:14)
[2018-11-01] MEDS ORDERED: Lactulose 10 Gm/15 mL 30mL UDC PO PRN (04:56)
[2018-11-01] MEDS: INSULIN LISPRO SLIDING SCALE 100 UNITS/ML UNIT SUBQ SCH ×4 (06:57→20:54)
[2018-11-01] MEDS: Lactobacillus Rhamnosus GG 15 Billion CFU CAP.SPRINK PO SCH (08:21)
[2018-11-01] MEDS: Pantoprazole 40 mg EC Tab PO SCH (08:21)
[2018-11-01] MEDS: D5-0.9%NS 1,000 ML IV SCH ×2 (13:39→15:58)
[2018-11-01 18:34] LABS: EOSINOPHIL SMEAR SOURCE URINE; EOSINOPHILS SMEAR COUNT NONE SEEN (NONE SEEN)
[2018-11-01] MEDS: Hydrocodone/APAP 10 mg/325 mg Tab PO PRN (20:50)
[2018-11-02] MEDS: Hydrocodone/APAP 10 mg/325 mg Tab PO PRN ×3 (00:22→13:17)
[2018-11-02] MEDS: D5-0.9%NS 1,000 ML IV SCH ×2 (05:13→18:04)
--- NOTE | 2018-11-02 06:04 | Infectious Disease Prog Note ---
Infectious Disease Subjective - Review of Systems Service Date: 11/02/18 Subjective: there is no new change, no fever. Infectious Disease Objective - Results Result Diagrams: 10/30/18 17:15 10/30/18 17:15 Recent Labs: Laboratory Last Values WBC 6.8 Th/cmm (4.8-10.8) 10/30/18 17:15 RBC 4.70 Mil/cmm (3.80-5.80) 10/30/18 17:15 Hgb 13.7 gm/dL (12-16) 10/30/18 17:15 Hct 40.4 % (41.0-60) L 10/30/18 17:15 MCV 86.0 fl (80-99) 10/30/18 17:15 MCH 29.1 pg (27.0-31.0) 10/30/18 17:15 MCHC Differential 33.8 pg (28.0-36.0) 10/30/18 17:15 RDW 13.2 % (11.5-20.0) 10/30/18 17:15 Plt Count 214 Th/cmm (150-400) 10/30/18 17:15 MPV 8.4 fl 10/30/18 17:15 Neutrophils % 73.0 % (40.0-80.0) 10/30/18 17:15 Lymphocytes % 17.2 % (20.0-50.0) L 10/30/18 17:15 Monocytes % 5.6 % (2.0-10.0) 10/30/18 17:15 Eosinophils % 2.9 % (0.0-5.0) 10/30/18 17:15 Basophils % 1.3 % (0.0-2.0) 10/30/18 17:15 Eos Smear Source URINE 11/01/18 16:30 Eos Smear Total Cells NONE SEEN (NONE SEEN) 11/01/18 16:30 Sodium 137 mEq/L (136-145) 10/30/18 17:15 Potassium 4.5 mEq/L (3.5-5.1) 10/30/18 17:15 Chloride 103 mEq/L (98-107) 10/30/18 17:15 Carbon Dioxide 27.6 mEq/L (21.0-31.0) 10/30/18 17:15 Anion Gap 10.9 (7.0-16.0) 10/30/18 17:15 BUN 21 mg/dL (7-25) 10/30/18 17:15 Creatinine 1.4 mg/dL (0.7-1.3) H 10/30/18 17:15 Est GFR ( Amer) TNP 10/30/18 17:15 Est GFR (Non-Af Amer) TNP 10/30/18 17:15 BUN/Creatinine Ratio 15.0 10/30/18 17:15 Glucose 163 mg/dL (70-105) H 10/30/18 17:15 POC Glucose 178 MG/DL (70 - 105) H 11/01/18 20:43 Calcium 9.1 mg/dL (8.6-10.3) 10/30/18 17:15 Urine Source [place] 10/30/18 16:50 Urine Color YELLOW 10/30/18 16:50 Urine Clarity CLEAR (CLEAR) 10/30/18 16:50 Urine pH 6.0 (4.6 - 8.0) 10/30/18 16:50 Ur Specific [place] <= 1.005 (1.005-1.030) 10/30/18 16:50 Urine Protein NEGATIVE mg/dL (NEGATIVE) 10/30/18 16:50 Urine Glucose (UA) NEGATIVE mg/dL (NEGATIVE) 10/30/18 16:50 Urine Ketones NEGATIVE mg/dL (NEGATIVE) 10/30/18 16:50 Urine Blood SMALL (NEGATIVE) H 10/30/18 16:50 Urine Nitrate POSITIVE (NEGATIVE) H 10/30/18 16:50 Urine Bilirubin NEGATIVE (NEGATIVE) 10/30/18 16:50 Urine Urobilinogen 0.2 E.U./dL (0.2 - 1.0) 10/30/18 16:50 Ur Leukocyte Esterase MODERATE (NEGATIVE) H 10/30/18 16:50 Urine RBC 2-5 /hpf (0-5) H 10/30/18 16:50 Urine WBC 10-25 /hpf (0-5) H 10/30/18 16:50 Ur Epithelial Cells NONE SEEN /lpf (FEW) 10/30/18 16:50 Urine Bacteria MODERATE /hpf (NONE SEEN) H 10/30/18 16:50 Ur Random Sodium 121 mmol/L 07/20/19 16:30 Urine Creatinine 47.0 mg/dl (39.0-259.0) 11/01/18 16:30 - Physical Exam Vitals and I&O: Vital Signs Temp 96.4 F 11/02/18 04:00 Pulse 52 11/02/18 04:00 Resp 18 11/02/18 04:00 BP 123/77 11/02/18 04:00 Pulse Ox 95 11/02/18 04:00 Intake & Output 11/01/18 11/01/18 11/02/18 06:59 18:59 06:59 Intake Total 250 1000 993.75 Output Total 900 Balance -650 1000 993.75 Weight (lbs) 79.379 kg Intake: Intake, IV Amount 50 1000 993.75 D5-0.9%Ns 1,000 ml @ 50 1000 mls/hr IV .Q20H REPLACED BY [facility] Rx#: [id number] D5-0.9%Ns 1,000 ml @ 75 993.75 mls/hr IV .[id number] REPLACED BY [facility] Rx #:[id number] [id number] 1 gm In 50 Dextrose 5% 50 ml @ 100 mls/hr IV Q24H REPLACED BY [facility] Rx#: [id number] Oral 200 Output: Urine 900 Other: Weight Source Bedscale Active Medications: Current Medications Acetaminophen (Tylenol) 325 mg PO Q6H PRN PRN Reason: Pain or Fever >101 Stop: 12/31/18 04:57 Last Admin: 11/02/18 03:04 Dose: 325 mg Acetaminophen/Hydrocodone Bitart ([place] 10 Mg/325 Mg) 1 tab PO Q4H PRN PRN Reason: Pain (Moderate) Stop: 12/31/18 04:58 Last Admin: 11/02/18 00:22 Dose: 1 tab Dextrose (D50w) 50 ml IVP PRN PRN PRN Reason: Blood Glucose less than 70 Stop: 12/31/18 03:13 Dextrose (Glutose 40%) 18.75 gm PO PRN PRN PRN Reason: Blood Glucose less than 70 Stop: 12/31/18 03:13 Docusate Sodium (Colace) 100 mg PO BID REPLACED BY [facility] Stop: 12/31/18 08:59 Last Admin: 11/01/18 16:15 Dose: 100 mg Escitalopram Oxalate (Lexapro) 10 mg PO DAILY REPLACED BY [facility]; Protocol Stop: 12/29/18 21:59 Last Admin: 11/01/18 08:21 Dose: 10 mg Glucagon (Glucagen) 1 mg IM PRN PRN PRN Reason: Blood Glucose less than 70 Stop: 12/31/18 03:13 Ceftriaxone Sodium 1 gm/ (Dextrose) 50 mls @ 100 mls/hr IV Q24H [facility] Stop: 12/30/18 18:59 Last Admin: 11/01/18 19:38 Dose: 100 mls/hr Dextrose/Sodium Chloride (D5-0.9%Ns) 1,000 mls @ 75 mls/hr IV .[id number] REPLACED BY [facility] Stop: 12/31/18 15:44 Last Admin: 11/02/18 05:13 Dose: 75 mls/hr Insulin Human Lispro (Humalog Insulin Sliding Scale) 0 units SUBQ ACHS REPLACED BY [facility]; Protocol Stop: 12/31/18 07:29 Last Admin: 11/01/18 20:54 Dose: 2 units Lactobacillus Rhamnosus (Culturelle 15b) 1 each PO DAILY REPLACED BY [facility] Stop: 12/31/18 08:59 Last Admin: 11/01/18 08:21 Dose: 1 each Lactulose (Cephulac) 10 gm PO Q8HR PRN PRN Reason: Constipation Stop: 12/31/18 04:59 Megestrol Acetate (Megace) 40 mg PO DAILY REPLACED BY [facility]; Protocol Stop: 12/31/18 15:59 Last Admin: 11/01/18 16:20 Dose: 40 mg Miscellaneous (Probiotic Screen) 1 ea MC PRN PRN PRN Reason: PROTOCOL Stop: 12/30/18 12:58 Pantoprazole Sodium (Protonix) 40 mg PO DAILY REPLACED BY [facility] Stop: 12/31/18 08:59 Last Admin: 11/01/18 08:21 Dose: 40 mg General: no acute distress, well developed, well nourished HEENT: atraumatic, normocephalic, PERRLA, EOMI Neck: supple, no thyromegaly Cardiovascular: S1S2, regular Lungs: clear to auscultation bilaterally, clear to percussion Abdomen: soft, no tender, no distended Extremities: no cyanosis, no clubbing, no edema Neurological: awake, alert, oriented Skin: intact Infectious Disease Assmt/Plan - Assessment Assessment: 1. ALTERED MENTAL STATUS. METABOLIC ENCEPHALOPATHY IMPROVED. 2. UTI: ESBL E COLI. 3. BETSY. 4. ESBL E COLI INFECTION. 5. DM2 6. HTN. 7. DEMENTIA. 8. BPH. - Plan Plan: CHANGE ANTIBIOTICS TO MEROPENEM 500MG IV Q8 ON DISCHARGE, CHANGE MEROPENEM TO INVANZ 1 G IV QDAILY FOR 7 DAYS. FOLLOW UP WITH UROLOGY OUTPATIENT FOR BPH. FOLLOW UP WITH ME AFTER TWO WEEKS. Nutritional Asmnt/Malnutr-PDOC - Dietary Evaluation Malnutrition Findings (Please click <Entered> for more info): Nutritional Asmnt/Malnutrition Start: 10/31/18 14: 37 Text: Status: Complete Freq: Protocol: Document 10/31/18 14:40 FRANSISCO (Rec: 10/31/18 14:50 [email or web address] [email or web address]) Nutritional Asmnt/Malnutrition Patient General Information Nutritional Screening High Risk Consult Diagnosis FAILURE TO THRIVE Pertinent Medical Hx/Surgical Hx HTN, DM, DEMENTIA, METABOLIC ENCEPALOPATHY, MAJOR DEPRESSION, INSOMNIA Subjective Information IA CONSULT: FTT PT IS A 78 YEAR OLD MALE FROM [facility] ADMITTED ON 10/30 D/T DECREASED ADLS AND GENERALIZED WEAKNESS . PT IS CURRENTLY NPO STATUS, WAITING ON A SWALLOW EVAL ( ALREADY ORDERED). SPOKE WITH PT AT BEDSIDE, PT STATED HE ONLY SPEAKS/UNDERSTNADS IRAQI. SPOKE WITH RN, BRENNON, STATES PT DI NOT MENTION ANY RECENT WEIGHT LOSS OR LOSS OF APPETITE. HT: 56 WT: 175 LB (79.55 KG) ABW: 150 LB (68.30 KG) BMI: 28.25 (OVERWEIGHT) GI: WNL, SOFT, NON-TENDER, LARGE, ROUND BM: NOT NOTED I/O: NOT NOTED/850 (-850) SKIN: WNL, WARM, DRY, ELASTIC, INTACT KAM: 13 DIET ORDER: NPO ESTIMATED ENERGY NEEDS: ( GERIATRIC, ABW) 9536-3256 KCALS (25-30 KCALS/ KG) 68-82 G PRO (1.0-1.2 G/KG) 2132-8066 ML (25-30 ML/KG) Current Diet Order/ Nutrition Support NPO Pertinent Medications D5-0.9% NS Pertinent Labs 10/30: HGB/HCT 13.7/40.4, BUN/ CR 21/1.4, GLUCOSE 163 Nutritional Hx/Data Height 1.68 m Height (Calculated Centimeters) 167.6 Current Weight (lbs) 79.379 kg Weight (Calculated Kilograms) 79.4 Weight (Calculated Grams) 81394.7 [place] Body Weight 142 LB (64.55 KG) % [place] Body Weight 123 Body Mass Index (BMI) 28.2 Weight Status Overweight GI Symptoms GI Symptoms None Last BM NOT NOTED Skin Integrity/Comment: WNL, WARM, DRY, ELASTIC, INTACT KAM: 13 Current %PO Negligible < 25% Estimated Nutritional Goals BEE in Kcals: Adj wt of IBW Calories/Kcals/Kg 25-30 Kcals Calculated 6063-7317 Protein: Adj wt of IBW Protein g/k.0-1.2 Protein Calculated 68-82 Fluid: ml 5254-2389 ML (25-30 ML/KG) Nutritional Problem 1. Problem Problem INADEQUATE ENERGY INTAKE Etiology R/T ORDERED SWALLOW Signs/Symptoms: EVAL AEB NPO STATUS Malnutrition Related to Morbid Obesity Malnutrition related to morbid obesity No Intervention/Recommendation Comments 1. CONTINUE WITH NPO STATUS MEDICALLY APPROPRIATE. 2. ADVANCE DIET MEDICALLY APPROPRIATE. Expected Outcomes/Goals Expected Outcomes/Goals 1. MONITOR NPO STATUS, WT, NUTRITION RELATED LABS AND SKIN INTEGRITY. 2. F/U HIGH RISK IN 2-3 DAYS, 11/02-11/03
--- NOTE | 2018-11-02 06:20 | Progress Notes ---
DATE: 11/02/2018 INFECTIOUS DISEASE PROGRESS NOTE SUBJECTIVE: The patient lying in the bed, not in acute distress. No fever, no chills. PHYSICAL EXAMINATION: VITAL SIGNS: Current vital signs show temperature is 97.1, pulse 61, respirations 20, blood pressure 143/84. GENERAL: The patient is comfortable lying in bed, no acute distress. HEENT: Head is normocephalic, atraumatic. Oral cavity moist, pink tongue. NECK: Supple, no JVD, no carotid bruit. Trachea midline. CHEST: Bilateral breath sounds. No crackles, no wheezing. HEART: S1, S2 within normal limits. Regular rhythm. No murmur or gallop. ABDOMEN: Soft, nontender, nondistended. Bowel sounds present. EXTREMITIES: No cyanosis, no clubbing, no edema. NEUROLOGIC: Alert, awake, and oriented x 3. LABORATORY DATA: Current lab shows WBC count is 6800 ____ urine, none. Urine culture grew more than 100,000 E. coli. Nares screen is negative. MRSA is negative. Chest x-ray, no acute disease. Renal ultrasound is pending. IMPRESSION: 1. Escherichia coli, urinary tract infection. 2. Altered mental status, improved, secondary to metabolic encephalopathy. 3. Acute kidney injury. 4. Diabetes mellitus type 2. 5. Hypertension. 6. Dementia. 7. History of urinary tract infection, urine retention. RECOMMENDATIONS: Renal consult with Dr. Major appreciated. Continue Rocephin. Depending on the culture report, we will define final antibiotic therapy. [facility]# [id number]
[2018-11-02 06:33] LABS: ALB/GLOB RATIO 1.3 (1.0-1.8); ALBUMIN 3.3 gm/dL (4.2-5.5); ALKALINE PHOSPHATASE 86 U/L (34-104); ANION GAP 9.1 (7.0-16.0); BILIRUBIN,TOTAL 0.4 mg/dL (0.3-1.0); BUN - UREA NITROGEN 20 mg/dL (7-25); CALCIUM SERUM 8.5 mg/dL (8.6-10.3); CARBON DIOXIDE 27.2 mEq/L (21.0-31.0); CHLORIDE 104 mEq/L (98-107); CREATININE - SERUM 1.3 mg/dL (0.7-1.3); GLUCOSE 177 mg/dL (70-105); POTASSIUM SERUM 4.3 mEq/L (3.5-5.1); SGOT 11 U/L (13-39); SGPT/ALT 13 U/L (7-52); SODIUM SERUM 136 mEq/L (136-145); TOTAL PROTEIN,SERUM 5.9 gm/dL (6.0-8.3); URIC ACID 5.8 mg/dL (4.4-7.6)
[2018-11-02 06:45] LABS: % BASOPHILS 0.5 % (0.0-2.0); % EOSINOPHILS 3.1 % (0.0-5.0); % LYMPHOCYTES 20.7 % (20.0-50.0); % MONOCYTES 6.2 % (2.0-10.0); % NEUTROPHILS 69.5 % (40.0-80.0); EOSINOPHILE ABSOLUTE 0.2 Th/cmm (0.1-0.4); HEMATOCRIT 41.2 % (41.0-60); HEMOGLOBIN 13.9 gm/dL (12-16); LYMPHOCYTE ABSOLUTE 1.3 Th/cmm (1.5-3.0); MEAN CORPUSCULAR HGB CONC 33.7 pg (28.0-36.0); MONOCYTE ABSOLUTE 0.4 Th/cmm (0.3-1.0); NEUTROPHILE ABSOLUTE 4.2 Th/cmm (1.8-8.0); PLATELET COUNT 231 Th/cmm (150-400); RED BLOOD COUNT 4.79 Mil/cmm (3.80-5.80); RED CELL DISTRIBUTION WIDTH 12.5 % (11.5-20.0); WHITE BLOOD COUNT 6.1 Th/cmm (4.8-10.8)
[2018-11-02] MEDS: INSULIN LISPRO SLIDING SCALE 100 UNITS/ML UNIT SUBQ SCH ×4 (06:50→20:45)
[2018-11-02 07:46] LABS: PHOSPHOROUS 3.4 mg/dL (2.5-5.0)
[2018-11-02] MEDS: Meropenem 500 MG in Sodium Chloride 0.9% 100 ML IV SCH ×3 (08:28→23:58)
[2018-11-02] MEDS: Lactobacillus Rhamnosus GG 15 Billion CFU CAP.SPRINK PO SCH (08:29)
[2018-11-02] MEDS: Pantoprazole 40 mg EC Tab PO SCH (08:29)
--- NOTE | 2018-11-02 11:12 | Diagnostic Imaging Report ---
Portable chest x-ray HISTORY: Shortness of breath There is a poor inspiration. The heart size appears somewhat generous. No focal pulmonary processes. No hilar or mediastinal abnormalities. IMPRESSION: 1. No acute focal bony processes 2. Suggestion of a somewhat generous heart size.
--- NOTE | 2018-11-02 11:16 | Diagnostic Imaging Report ---
Renal ultrasound HISTORY: Pyelonephritis, hydronephrosis The right kidney exhibits an overall normal size (9.1 x 5.0 x 5.0 cm). Slightly irregular cortical contour. No focal lesions. No hydronephrosis. The left kidney is normal in size (10.3 x 4.7 x 4.8 cm). No focal lesions. Mild fullness of the left renal pelvis. No adrien hydronephrosis. A Daugherty catheter seen within a contracted urinary bladder. The prostate gland appears to be enlarged. IMPRESSION: 1. No significant focal renal lesions or hydronephrosis 2. Enlarged prostate gland
--- NOTE | 2018-11-02 15:02 | General Progress Note ---
Subjective - Review of Systems Service Date: 11/02/18 Subjective: awake, comfortable Objective - Results Result Diagrams: 11/02/18 05:45 11/02/18 05:40 Recent Labs: Laboratory Last Values WBC 6.1 Th/cmm (4.8-10.8) 11/02/18 05:45 RBC 4.79 Mil/cmm (3.80-5.80) 11/02/18 05:45 Hgb 13.9 gm/dL (12-16) 11/02/18 05:45 Hct 41.2 % (41.0-60) 11/02/18 05:45 MCV 86.0 fl (80-99) 11/02/18 05:45 MCH 29.0 pg (27.0-31.0) 11/02/18 05:45 MCHC Differential 33.7 pg (28.0-36.0) 11/02/18 05:45 RDW 12.5 % (11.5-20.0) 11/02/18 05:45 Plt Count 231 Th/cmm (150-400) 11/02/18 05:45 MPV 8.6 fl 11/02/18 05:45 Neutrophils % 69.5 % (40.0-80.0) 11/02/18 05:45 Lymphocytes % 20.7 % (20.0-50.0) 11/02/18 05:45 Monocytes % 6.2 % (2.0-10.0) 11/02/18 05:45 Eosinophils % 3.1 % (0.0-5.0) 11/02/18 05:45 Basophils % 0.5 % (0.0-2.0) 11/02/18 05:45 Eos Smear Source URINE 11/01/18 16:30 Eos Smear Total Cells NONE SEEN (NONE SEEN) 11/01/18 16:30 Sodium 136 mEq/L (136-145) 11/02/18 05:40 Potassium 4.3 mEq/L (3.5-5.1) 11/02/18 05:40 Chloride 104 mEq/L (98-107) 11/02/18 05:40 Carbon Dioxide 27.2 mEq/L (21.0-31.0) 11/02/18 05:40 Anion Gap 9.1 (7.0-16.0) 11/02/18 05:40 BUN 20 mg/dL (7-25) 11/02/18 05:40 Creatinine 1.3 mg/dL (0.7-1.3) 11/02/18 05:40 Est GFR ( Amer) TNP 11/02/18 05:40 Est GFR (Non-Af Amer) TNP 11/02/18 05:40 BUN/Creatinine Ratio 15.4 11/02/18 05:40 Glucose 177 mg/dL (70-105) H 11/02/18 05:40 POC Glucose 175 MG/DL (70 - 105) H 11/02/18 10:57 Uric Acid 5.8 mg/dL (4.4-7.6) 11/02/18 05:40 Calcium 8.5 mg/dL (8.6-10.3) L 11/02/18 05:40 Phosphorus 3.4 mg/dL (2.5-5.0) 11/02/18 05:40 Magnesium 2.0 mg/dL (1.9-2.7) 11/02/18 05:40 Total Bilirubin 0.4 mg/dL (0.3-1.0) 11/02/18 05:40 AST 11 U/L (13-39) L 11/02/18 05:40 ALT 13 U/L (7-52) 11/02/18 05:40 Alkaline Phosphatase 86 U/L (34-104) 11/02/18 05:40 Total Protein 5.9 gm/dL (6.0-8.3) L 11/02/18 05:40 Albumin 3.3 gm/dL (4.2-5.5) L 11/02/18 05:40 Globulin 2.6 gm/dL 11/02/18 05:40 Albumin/Globulin Ratio 1.3 (1.0-1.8) 11/02/18 05:40 TSH 4.31 uIU/ml (0.34-5.60) 11/02/18 05:45 Urine Source [place] 10/30/18 16:50 Urine Color YELLOW 10/30/18 16:50 Urine Clarity CLEAR (CLEAR) 10/30/18 16:50 Urine pH 6.0 (4.6 - 8.0) 10/30/18 16:50 Ur Specific [place] <= 1.005 (1.005-1.030) 10/30/18 16:50 Urine Protein NEGATIVE mg/dL (NEGATIVE) 10/30/18 16:50 Urine Glucose (UA) NEGATIVE mg/dL (NEGATIVE) 10/30/18 16:50 Urine Ketones NEGATIVE mg/dL (NEGATIVE) 10/30/18 16:50 Urine Blood SMALL (NEGATIVE) H 10/30/18 16:50 Urine Nitrate POSITIVE (NEGATIVE) H 10/30/18 16:50 Urine Bilirubin NEGATIVE (NEGATIVE) 10/30/18 16:50 Urine Urobilinogen 0.2 E.U./dL (0.2 - 1.0) 10/30/18 16:50 Ur Leukocyte Esterase MODERATE (NEGATIVE) H 10/30/18 16:50 Urine RBC 2-5 /hpf (0-5) H 10/30/18 16:50 Urine WBC 10-25 /hpf (0-5) H 10/30/18 16:50 Ur Epithelial Cells NONE SEEN /lpf (FEW) 10/30/18 16:50 Urine Bacteria MODERATE /hpf (NONE SEEN) H 10/30/18 16:50 Ur Random Sodium 121 mmol/L 11/01/18 16:30 Urine Creatinine 47.0 mg/dl (39.0-259.0) 11/01/18 16:30 Microalb/Creat Ratio 57.8 mg/g creat (0.0-30.0) H 11/01/18 16:30 - Physical Exam Vitals and I&O: Vital Signs Temp 96.7 F 11/02/18 11:49 Pulse 51 11/02/18 11:49 Resp 18 11/02/18 11:49 BP 137/59 11/02/18 11:49 Pulse Ox 95 11/02/18 11:49 Intake & Output 11/01/18 11/02/18 11/02/18 18:59 06:59 18:59 Intake Total 1000 993.75 Balance 1000 993.75 Intake: Intake, IV Amount 1000 993.75 D5-0.9%Ns 1,000 ml @ 50 1000 mls/hr IV .Q20H ALONDRA Rx#: [id number] D5-0.9%Ns 1,000 ml @ 75 993.75 mls/hr IV .[id number] ALONDRA Rx #:[id number] Active Medications: Current Medications Acetaminophen (Tylenol) 325 mg PO Q6H PRN PRN Reason: Pain or Fever >101 Stop: 12/31/18 04:57 Last Admin: 11/02/18 03:04 Dose: 325 mg Acetaminophen/Hydrocodone Bitart ([place] 10 Mg/325 Mg) 1 tab PO Q4H PRN PRN Reason: Pain (Moderate) Stop: 12/31/18 04:58 Last Admin: 11/02/18 13:17 Dose: 1 tab Dextrose (D50w) 50 ml IVP PRN PRN PRN Reason: Blood Glucose less than 70 Stop: 12/31/18 03:13 Dextrose (Glutose 40%) 18.75 gm PO PRN PRN PRN Reason: Blood Glucose less than 70 Stop: 12/31/18 03:13 Docusate Sodium (Colace) 100 mg PO BID [facility] Stop: 12/31/18 08:59 Last Admin: 11/02/18 08:28 Dose: 100 mg Escitalopram Oxalate (Lexapro) 10 mg PO DAILY [facility]; Protocol Stop: 12/29/18 21:59 Last Admin: 11/02/18 08:29 Dose: 10 mg Glucagon (Glucagen) 1 mg IM PRN PRN PRN Reason: Blood Glucose less than 70 Stop: 12/31/18 03:13 Dextrose/Sodium Chloride (D5-0.9%Ns) 1,000 mls @ 75 mls/hr IV .[id number] [facility] Stop: 12/31/18 15:44 Last Admin: 11/02/18 05:13 Dose: 75 mls/hr Meropenem 500 mg/ Sodium (Chloride) 100 mls @ 100 mls/hr IV Q8H [facility] Stop: 01/01/19 07:59 Last Admin: 11/02/18 08:28 Dose: 100 mls/hr Insulin Human Lispro (Humalog Insulin Sliding Scale) 0 units SUBQ ACHS [facility]; Protocol Stop: 12/31/18 07:29 Last Admin: 11/02/18 11:11 Dose: 2 units Lactobacillus Rhamnosus (Culturelle 15b) 1 each PO DAILY [facility] Stop: 12/31/18 08:59 Last Admin: 11/02/18 08:29 Dose: 1 each Lactulose (Cephulac) 10 gm PO Q8HR PRN PRN Reason: Constipation Stop: 12/31/18 04:59 Megestrol Acetate (Megace) 40 mg PO DAILY ALONDRA; Protocol Stop: 12/31/18 15:59 Last Admin: 11/02/18 08:29 Dose: 40 mg Miscellaneous (Probiotic Screen) 1 ea MC PRN PRN PRN Reason: PROTOCOL Stop: 12/30/18 12:58 Pantoprazole Sodium (Protonix) 40 mg PO DAILY ALONDRA Stop: 12/31/18 08:59 Last Admin: 11/02/18 08:29 Dose: 40 mg General: Alert, No acute distress HEENT: Atraumatic, EOMI, Mucous membr. moist/pink Neck: Supple, +2 carotid pulse wo bruit Cardiovascular: Regular rate, Normal S2 Lungs: Clear to auscultation Abdomen: Bowel sounds, Soft Extremities: no Edema Neurological: Sensation intact Skin: no Rash Psych/Mental Status: Mood NL Assessment/Plan - Assessment Assessment: BETSY better ESBL E. coli T2DM Ess Htn BPH - Plan Plan: Lab - Result Diagrams 11/02/18 05:45 11/02/18 05:40 Current Medications Acetaminophen (Tylenol) 325 mg PO Q6H PRN PRN Reason: Pain or Fever >101 Stop: 12/31/18 04:57 Last Admin: 11/02/18 03:04 Dose: 325 mg Acetaminophen/Hydrocodone Bitart ([place] 10 Mg/325 Mg) 1 tab PO Q4H PRN PRN Reason: Pain (Moderate) Stop: 12/31/18 04:58 Last Admin: 11/02/18 13:17 Dose: 1 tab Dextrose (D50w) 50 ml IVP PRN PRN PRN Reason: Blood Glucose less than 70 Stop: 12/31/18 03:13 Dextrose (Glutose 40%) 18.75 gm PO PRN PRN PRN Reason: Blood Glucose less than 70 Stop: 12/31/18 03:13 Docusate Sodium (Colace) 100 mg PO BID ALONDRA Stop: 12/31/18 08:59 Last Admin: 11/02/18 08:28 Dose: 100 mg Escitalopram Oxalate (Lexapro) 10 mg PO DAILY ALONDRA; Protocol Stop: 12/29/18 21:59 Last Admin: 11/02/18 08:29 Dose: 10 mg Glucagon (Glucagen) 1 mg IM PRN PRN PRN Reason: Blood Glucose less than 70 Stop: 12/31/18 03:13 Dextrose/Sodium Chloride (D5-0.9%Ns) 1,000 mls @ 75 mls/hr IV .[id number] [facility] Stop: 12/31/18 15:44 Last Admin: 11/02/18 05:13 Dose: 75 mls/hr Meropenem 500 mg/ Sodium (Chloride) 100 mls @ 100 mls/hr IV Q8H [facility] Stop: 01/01/19 07:59 Last Admin: 11/02/18 08:28 Dose: 100 mls/hr Insulin Human Lispro (Humalog Insulin Sliding Scale) 0 units SUBQ ACHS ALONDRA; Protocol Stop: 12/31/18 07:29 Last Admin: 11/02/18 11:11 Dose: 2 units Lactobacillus Rhamnosus (Culturelle 15b) 1 each PO DAILY [facility] Stop: 12/31/18 08:59 Last Admin: 11/02/18 08:29 Dose: 1 each Lactulose (Cephulac) 10 gm PO Q8HR PRN PRN Reason: Constipation Stop: 12/31/18 04:59 Megestrol Acetate (Megace) 40 mg PO DAILY ALONDRA; Protocol Stop: 12/31/18 15:59 Last Admin: 11/02/18 08:29 Dose: 40 mg Miscellaneous (Probiotic Screen) 1 ea MC PRN PRN PRN Reason: PROTOCOL Stop: 12/30/18 12:58 Pantoprazole Sodium (Protonix) 40 mg PO DAILY [facility] Stop: 12/31/18 08:59 Last Admin: 11/02/18 08:29 Dose: 40 mg Lab - Result Diagrams 11/02/18 05:45 11/02/18 05:40 Kidney fnc much improved CXR x 2 negative Renal US BPH on Meropenem maintain hydration Nutritional Asmnt/Malnutr-PDOC - Dietary Evaluation Malnutrition Findings (Please click <Entered> for more info): Nutritional Asmnt/Malnutrition Start: 10/31/18 14: 37 Text: Status: Complete Freq: Protocol: Document 10/31/18 14:40 FRANSISCO (Rec: 10/31/18 14:50 FRANSISCO [email or web address]) Nutritional Asmnt/Malnutrition Patient General Information Nutritional Screening High Risk Consult Diagnosis FAILURE TO THRIVE Pertinent Medical Hx/Surgical Hx HTN, DM, DEMENTIA, METABOLIC ENCEPALOPATHY, MAJOR DEPRESSION, INSOMNIA Subjective Information IA CONSULT: FTT PT IS A 78 YEAR OLD MALE [facility] ADM[facility]ED ON 10/30 D/T DECREASED ADLS AND GENERALIZED WEAKNESS . PT IS CURRENTLY NPO STATUS, WAITING ON A SWALLOW EVAL ( ALREADY ORDERED). SPOKE WITH PT AT BEDSIDE, PT STATED HE ONLY SPEAKS/UNDERSTNADS TAMAZIGHT. SPOKE WITH RN, BRENNON, STATES PT DI NOT MENTION ANY RECENT WEIGHT LOSS OR LOSS OF APPETITE. HT: 56 WT: 175 LB (79.55 KG) ABW: 150 LB (68.30 KG) BMI: 28.25 (OVERWEIGHT) GI: WNL, SOFT, NON-TENDER, LARGE, ROUND BM: NOT NOTED I/O: NOT NOTED/850 (-850) SKIN: WNL, WARM, DRY, ELASTIC, INTACT KAM: 13 DIET ORDER: NPO ESTIMATED ENERGY NEEDS: ( GERIATRIC, ABW) 9174-7270 KCALS (25-30 KCALS/ KG) 68-82 G PRO (1.0-1.2 G/KG) 2488-9977 ML (25-30 ML/KG) Current Diet Order/ Nutrition Support NPO Pertinent Medications D5-0.9% NS Pertinent Labs 10/30: HGB/HCT 13.7/40.4, BUN/ CR 21/1.4, GLUCOSE 163 Nutritional Hx/Data Height 1.68 m Height (Calculated Centimeters) 167.6 Current Weight (lbs) 79.379 kg Weight (Calculated Kilograms) 79.4 Weight (Calculated Grams) 79575.7 [place] Body Weight 142 LB (64.55 KG) % [place] Body Weight 123 Body Mass Index (BMI) 28.2 Weight Status Overweight GI Symptoms GI Symptoms None Last BM NOT NOTED Skin Integrity/Comment: WNL, WARM, DRY, ELASTIC, INTACT KAM: 13 Current %PO Negligible < 25% Estimated Nutritional Goals BEE in Kcals: Adj wt of IBW Calories/Kcals/Kg 25-30 Kcals Calculated 2616-5620 Protein: Adj wt of IBW Protein g/k.0-1.2 Protein Calculated 68-82 Fluid: ml 8904-8819 ML (25-30 ML/KG) Nutritional Problem 1. Problem Problem INADEQUATE ENERGY INTAKE Etiology R/T ORDERED SWALLOW Signs/Symptoms: EVAL AEB NPO STATUS Malnutrition Related to Morbid Obesity Malnutrition related to morbid obesity No Intervention/Recommendation Comments 1. CONTINUE WITH NPO STATUS MEDICALLY APPROPRIATE. 2. ADVANCE DIET MEDICALLY APPROPRIATE. Expected Outcomes/Goals Expected Outcomes/Goals 1. MONITOR NPO STATUS, WT, NUTRITION RELATED LABS AND SKIN INTEGRITY. 2. F/U HIGH RISK IN 2-3 DAYS, 11/02-11/03
--- NOTE | 2018-11-02 16:01 | Consultation ---
DATE OF CONSULTATION: 11/01/2018 ATTENDING PHYSICIAN: Rod Espitia M.D. LAND CLEARER: Khurram Major M.D. REASON FOR CONSULTATION: Worsening kidney function, electrolyte imbalance, and fluid management. HISTORY OF PRESENT ILLNESS: This is an 78-year-old male with past medical history of chronic kidney disease, who was brought in because of poor oral intake. A few hours prior to admission, the patient was noted to have poor oral intake. This was associated with progressive weakness and easy fatigability. His condition worsened and thus was brought to the Emergency Room. His white count was 6.8. Chest x-ray revealed no acute disease, but urinalysis was suggestive of a complicated urinary tract infection. His creatinine was 1.4. There was no mention of nausea and vomiting as well as diarrhea. PAST MEDICAL HISTORY: 1. Chronic kidney disease. 2. Metabolic encephalopathy. 3. Dementia without behavioral disturbance. 4. Essential hypertension. 5. Urinary retention. 6. Anemia of chronic disease. 7. Type 2 diabetes mellitus. 8. Major depression. CURRENT MEDICATIONS: Currently on ceftriaxone, docusate sodium, escitalopram oxalate, glucagon, hydrocodone, lactobacillus, megestrol acetate, pantoprazole and probiotic. ALLERGIES: No known drug allergies. SOCIAL AND FAMILY HISTORY: I was not able to obtain directly from the patient because of depressed mental status and communication problems. REVIEW OF SYSTEMS: Again, I was not able to decipher directly from the patient because of the same reason. PHYSICAL EXAMINATION: GENERAL: The patient is arousable, verbal, but could fuse with depressed mental capacity. VITAL SIGNS: His blood pressure is 136/81, pulse 64, temperature 96.1 degrees. SKIN: Poor turgor, warm, no rash, no jaundice appreciated. HEENT: Head normocephalic, atraumatic. Eyes: Extraocular muscles intact. Pupils equal, round, reactive to light and accommodates. Anicteric sclerae. Pale conjunctivae. Nose: Midline nasal septum. Mouth: Dry mucosa, good dentition. NECK: Supple, no adenopathy, no thyromegaly, no bruits. Trachea palpated in the midline. CHEST AND CARDIOVASCULAR: S1, S2. No rub, murmur nor gallop appreciated. Point of maximal impulse fifth intercostal space, left midclavicular line. No abdominal or femoral bruits appreciated. LUNGS: Equal expansion. No use of accessory muscles. No supraclavicular retractions. Decreased breath sounds, scattered rhonchi, but no rales nor wheezes appreciated. ABDOMEN: Globular, soft, positive bowel sounds. No bruits either diastolic or systolic. No muscle guarding, no rebound. No pulsatile pulses. RECTAL: Lax sphincter tone. GENITOURINARY: Normal appearing male genitalia. MUSCULOSKELETAL: No effusions present in his joints, but unable to assess his range of motion. EXTREMITIES: No evidence of any edema, cyanosis nor clubbing. He has a palpable femoral, but unable to fully appreciate popliteal and dorsalis pedis pulses. NEUROLOGIC: The patient is awake, but confused, disoriented with depressed mental capacity. He was not able to follow my neuro commands, so I was not able to pursue further my neuro exam. LABORATORY DATA: Did reveal white count 6.8, hemoglobin 13.7, hematocrit 40.3. Sodium 137, potassium 4.5, chloride 103, CO2 27, BUN 21, creatinine 1.4, glucose 163, calcium 9.1. IMPRESSION: 1. Acute kidney injury on chronic kidney disease. Chronic kidney disease is secondary to longstanding history of diabetes, giving rise to diabetic nephropathy with some underlying hypertensive nephrosclerosis. Acute kidney injury is possibly due to prerenal azotemia with progression to acute tubular injury. Physical exam revealed poor skin turgor with dry oral mucosa. History suggests that the patient had very poor oral intake and unable to replenish both sensible and insensible fluid losses. He had developed dehydration causing his prerenal azotemia to progress to acute tubular injury. He also may have developed acute interstitial nephritis due to ongoing complicated urinary tract infection. Since he has a history of urinary retention in the past, we are not sure if this has recurred. So also add acute obstructive uropathy as one of the differentials in acute kidney injury. 2. Poor oral intake with failure to thrive secondary to sepsis. 3. Sepsis secondary to complicated urinary tract infection. 4. Metabolic encephalopathy. 5. Dementia without behavioral disturbance. 6. Essential hypertension with chronic kidney disease. 7. Type 2 diabetes mellitus with chronic kidney disease. 8. Urinary retention, followed by urologist. 9. Anemia of chronic disease. 10. Major depression. PLAN: 1. Continue on with IV fluids. 2. Renal ultrasound. 3. Request for PSA. 4. Encourage p.o. intake. 5. Urine sodium, eosinophils, and creatinine. 6. Urine microalbumin to creatinine ratio. 7. Start Megace. 8. Start Rocephin. 9. Follow up cultures. [facility]# [id number]
--- NOTE | 2018-11-02 16:42 | History & Physical ---
ADMIT DATE: 10/31/2018 CHIEF COMPLAINT: "Decreased activity and generalized weakness." HISTORY OF PRESENT ILLNESS: The patient is an 78-year-old male with a past medical history of diabetes mellitus type 2, hypertension, dementia, metabolic encephalopathy, history of urinary retention, major depression, insomnia, brought in from nursing facility for generalized weakness and decreased activity of daily living. On initial evaluation, the patient's temperature was 97.9 degrees Fahrenheit and WBC count 6800. Urinalysis showed pyuria and bacteriuria. The patient was diagnosed with UTI and admitted to the hospital for further care. PAST MEDICAL HISTORY: As mentioned above, hypertension, diabetes mellitus type 2, dementia, metabolic encephalopathy, history of urinary retention, major depression, insomnia. SOCIAL HISTORY: The patient lives in a retirement. No history of smoking and no alcohol or drug use. ALLERGIES: NKDA. MEDICATIONS: See medication reconciliation sheet. Medications includes Tylenol 350 mg p.o. every 6 hours p.r.n., Lexapro 10 mg p.o. daily, Glucagon 1 mg IM p.r.n. for blood glucose less than 640 and Humalog insulin with sliding scale, 1 tab p.o. daily, lactulose 10 mg p.o. every 8 hourly for constipation, 40 mg p.o. daily, Protonix 40 mg p.o. daily. REVIEW OF SYMPTOMS: Poor historian. GENERAL: The patient has no fever, no chills. HEAD, EYES, EARS, NOSE, AND THROAT: No diplopia, no photophobia, no sore throat. RESPIRATORY: No cough, no shortness of breath. CARDIOVASCULAR: No chest pain, no palpitations. GASTROINTESTINAL: No nausea, no vomiting, no diarrhea, no constipation. GENITOURINARY: No dysuria. NEUROLOGIC: No headache, no dizziness, no focal weakness. PHYSICAL EXAMINATION: VITAL SIGNS: Shows temperature is 98.2, pulse 65, respiration is 20, blood pressure 144/80. GENERAL: The patient is comfortable, lying in the bed, not in acute distress. HEAD, EYES, EARS, NOSE, AND THROAT: Head is normocephalic, atraumatic. Oral cavity moist, pink tongue. NECK: Supple. No JVD. No carotid bruit. Trachea in midline. CHEST: Bilateral breath sounds. No crackles or wheezing. HEART: S1, S2 within normal limits. Regular rhythm. No murmur, no gallop. ABDOMEN: Soft, nontender, nondistended. Bowel sounds present. EXTREMITIES: No cyanosis, no clubbing, no edema. NEUROLOGIC: Alert, awake. LABORATORY DATA: Current lab shows WBC count is 6800, hemoglobin 13.7, hematocrit 40.4, platelets are 214,000, neutrophils 73%. Sodium 137, potassium 4.5, chloride 103, bicarbonate is 27.6, BUN is 21, creatinine 1.4, glucose is 103. Urinalysis shows yellow clear urine, positive nitrite, moderate leukoesterase, WBC 10-25 and moderate bacteria. IMPRESSION: 1. Urinary tract infection. 2. Altered mental status, likely metabolic encephalopathy, improving. 3. Depression. 4. Hypertension. 5. Diabetes mellitus type 2. 6. Increased creatinine. 7. Acute renal insufficiency. 8. Acute kidney injury. 9. Dementia. 10. History of urinary retention. 11. Insomnia. RECOMMENDATIONS AND PLAN: We will start Rocephin and follow up the urine culture report and go from there. JOB# [id number]
[2018-11-03 05:04] LABS: EOSINOPHILE ABSOLUTE 0.3 Th/cmm (0.1-0.4); LYMPHOCYTE ABSOLUTE 1.6 Th/cmm (1.5-3.0); MONOCYTE ABSOLUTE 0.4 Th/cmm (0.3-1.0)
[2018-11-03 05:10] LABS: ANION GAP 9.1 (7.0-16.0); BUN - UREA NITROGEN 24 mg/dL (7-25); CALCIUM SERUM 8.4 mg/dL (8.6-10.3); CHLORIDE 103 mEq/L (98-107); CREATININE - SERUM 1.5 mg/dL (0.7-1.3); GLUCOSE 190 mg/dL (70-105); POTASSIUM SERUM 4.1 mEq/L (3.5-5.1); SODIUM SERUM 133 mEq/L (136-145)
[2018-11-03 05:15] LABS: % BASOPHILS 0.3 % (0.0-2.0); % EOSINOPHILS 4.7 % (0.0-5.0); % LYMPHOCYTES 27.8 % (20.0-50.0); % MONOCYTES 7.4 % (2.0-10.0); % NEUTROPHILS 59.8 % (40.0-80.0); HEMATOCRIT 38.2 % (41.0-60); HEMOGLOBIN 13.1 gm/dL (12-16); MEAN CELL VOLUME 86.5 fl (80-99); MEAN CORPUSCULAR HEMOGLOBIN 29.6 pg (27.0-31.0); MEAN CORPUSCULAR HGB CONC 34.2 pg (28.0-36.0); NEUTROPHILE ABSOLUTE 3.5 Th/cmm (1.8-8.0); PLATELET COUNT 210 Th/cmm (150-400); RED BLOOD COUNT 4.42 Mil/cmm (3.80-5.80); RED CELL DISTRIBUTION WIDTH 12.9 % (11.5-20.0); WHITE BLOOD COUNT 5.8 Th/cmm (4.8-10.8)
[2018-11-03] MEDS: INSULIN LISPRO SLIDING SCALE 100 UNITS/ML UNIT SUBQ SCH ×3 (07:35→15:54)
[2018-11-03] MEDS: D5-0.9%NS 1,000 ML IV SCH (07:40)
[2018-11-03] MEDS: Lactobacillus Rhamnosus GG 15 Billion CFU CAP.SPRINK PO SCH (08:23)
[2018-11-03] MEDS: Pantoprazole 40 mg EC Tab PO SCH (08:23)
[2018-11-03] MEDS: Hydrocodone/APAP 10 mg/325 mg Tab PO PRN (08:33)
[2018-11-03] MEDS: Meropenem 500 MG in Sodium Chloride 0.9% 100 ML IV SCH ×2 (08:33→15:54)
[2018-11-04 07:07] LABS: A1C 6.8 % (4.8-5.6)
== END 2018-11-03 15:50 | DRG 871 ==
LOC: ER 15:25 → TELE 19:45
PROVIDERS: ADMIT Internal Medicine Infectious Disease; ATTEND Internal Medicine Infectious Disease
DX: A41.9 Sepsis, unspecified organism (principal); G93.41 Metabolic encephalopathy; N10 Acute pyelonephritis; N17.9 Acute kidney failure, unspecified; F03.90 Unspecified dementia, unspecified severity, without behavioral disturbance, psychotic disturbance, mood disturbance, and anxiety; N18.9 Chronic kidney disease, unspecified; E11.22 Type 2 diabetes mellitus with diabetic chronic kidney disease; I12.9 Hypertensive chronic kidney disease with stage 1 through stage 4 chronic kidney disease, or unspecified chronic kidney disease; F32.9 Major depressive disorder, single episode, unspecified; D63.8 Anemia in other chronic diseases classified elsewhere; E11.21 Type 2 diabetes mellitus with diabetic nephropathy; R62.7 Adult failure to thrive; B96.20 Unspecified Escherichia coli [E. coli] as the cause of diseases classified elsewhere; N40.1 Benign prostatic hyperplasia with lower urinary tract symptoms; R33.8 Other retention of urine; Z16.12 Extended spectrum beta lactamase (ESBL) resistance; Z68.28 Body mass index [BMI] 28.0-28.9, adult
CPT/HCPCS: 36415-UA; 71045-TC; 76770-TC; 80048-TC; 80053-TC; 81001-TC; 81015-TC; 82043-90; 82570-TC; 82948-90; 83036-90; 83735-TC; 84100-TC; 84153-90; 84300-TC; 84443-TC; 84550-TC; 85025-TC; 87086-90; 93005; J0696; J2185; J7030; J7042; X3401; Z7610

== ENCOUNTER 2018-12-14 19:34 | Inpatient (IN) | payer MEDICARE, OTHER ==
[2018-12-14] MEDS ORDERED: cefTRIAXone 2 GM in Sodium Chloride 0.9% 100 ML IV ONE (20:11)
[2018-12-14] MEDS ORDERED: Metoclopramide 5 mg/mL 2mL Vial IVP STA (20:24)
[2018-12-14 20:28] LABS: % BASOPHILS 0.1 % (0.0-2.0); % EOSINOPHILS 4.6 % (0.0-5.0); % LYMPHOCYTES 26.6 % (20.0-50.0); % MONOCYTES 6.9 % (2.0-10.0); % NEUTROPHILS 61.8 % (40.0-80.0); EOSINOPHILE ABSOLUTE 0.4 Th/cmm (0.1-0.4); HEMATOCRIT 35.7 % (41.0-60); HEMOGLOBIN 12.1 gm/dL (12-16); MEAN CELL VOLUME 86.4 fl (80-99); MEAN CORPUSCULAR HEMOGLOBIN 29.3 pg (27.0-31.0); MONOCYTE ABSOLUTE 0.5 Th/cmm (0.3-1.0); NEUTROPHILE ABSOLUTE 4.8 Th/cmm (1.8-8.0); PLATELET COUNT 274 Th/cmm (150-400); RED BLOOD COUNT 4.13 Mil/cmm (3.80-5.80); RED CELL DISTRIBUTION WIDTH 12.8 % (11.5-20.0); WHITE BLOOD COUNT 7.7 Th/cmm (4.8-10.8)
[2018-12-14] MEDS ORDERED: Heparin Sod 5,000Units/ML 5,000 UNITS/ML VIAL SUBQ STA (20:30)
[2018-12-14] MEDS ORDERED: APAP/Oxycodone 5/325mg Tab PO STA (20:31)
[2018-12-14] MEDS ORDERED: 0.45% NS w/20 mEq KCl 1,000 ML IV ONE ×2 (20:46→21:20)
[2018-12-14] MEDS ORDERED: APAP/Oxycodone 5/325mg Tab ONE (20:46)
[2018-12-14] MEDS ORDERED: Metoclopramide 5 mg/mL 2mL Vial ONE (20:47)
[2018-12-14] MEDS ORDERED: Heparin Sod 5,000Units/ML 5,000 UNITS/ML VIAL ONE (20:48)
[2018-12-14 20:51] LABS: MAGNESIUM 2.3 mg/dL (1.9-2.7)
[2018-12-14] MEDS: Pantoprazole 40 mg EC Tab PO SCH (20:54)
--- NOTE | 2018-12-14 21:01 | ED Physician Chart ---
ED Chief Complaint/HPI - Patient Information Date Seen:: 12/22/18 Time Seen:: 08:30 Chief Complaint:: co of pain in the abdomen and gerd and has gastritis and hiccups and History of Present Illness:: patient has generalized aches and pain, has DM.hypertension,dementia,uti, depression insomnia,generalized weakness and patient speaks only and hence the history taken from the chart patient of Dr.ashok Enriquez s and has a beyer cathetar with pus like residue seen Allergies:: Allergies Allergy/AdvReac Type Severity Reaction Status Date / Time No Known Allergies Allergy Verified 10/30/18 15:46 Vitals:: Vital Signs - 8 hr 12/14/18 19:40 Temp 98.1 F HR 77 RR 14 BP 143/78 O2 Sat % 99 Historian:: Medical Records Family MD/PCP:: Dr.ashok boucher ED Review of Systems - Review of Systems General/Constitutional: Weight loss, Weakness, Loss of appetite Eyes: Other (has ulcer on both medial side of eyes) ENT: No earache, No sore throat, Other (hiccups, gerd and abdominal pain) Neck: No neck pain, No thyromegaly, No stiffness Cardio Vascular: No chest pain, No PND, No orthopnea Pulmonary: No SOB, No cough, No sputum GI: Nausea, Vomiting (occasional vomiting), Pain (epigastrium and right upper quadrant), Constipation G/U: No frequency, Other (beyer cathetar) Musculoskeletal: Muscle pain Psychiatric: Prior psych history, Depression, No suicidal ideation Hematopoietic: No lymphadenopathy Allergic/Immuno: No urticaria Neurological: Weakness, No paresthesia, Other (insomnia,weakness, aches and pain ,dementia) Family Medical History - Family Member Mother History Unknown: Yes ED Labs/Radiology/EKG Results - Lab Results Results: Laboratory Tests 12/14/18 12/14/18 20:15 20:15 WBC 7.7 RBC 4.13 Hgb 12.1 Hct 35.7 L MCV 86.4 MCH 29.3 MCHC Differential 34.0 RDW 12.8 Plt Count 274 MPV 8.6 Neutrophils % 61.8 Lymphocytes % 26.6 Monocytes % 6.9 Eosinophils % 4.6 Basophils % 0.1 Magnesium 2.3 Triglycerides 170 H Cholesterol 132 LDL Cholesterol Direct 87 HDL Cholesterol 31 ED Septic Shock - . Is Septic Shock (SBP<90, OR Lactate>4 mmol\L) present?: No - <6hrs of presentation: Vital Signs: Vital Signs - 8 hr 12/14/18 19:40 Temp 98.1 F HR 77 RR 14 BP 143/78 O2 Sat % 99
[2018-12-14 21:08] LABS: INR 0.97 (0.5-1.4)
[2018-12-14 21:09] LABS: ALB/GLOB RATIO 1.1 (1.0-1.8); ALBUMIN 3.3 gm/dL (4.2-5.5); ALKALINE PHOSPHATASE 75 U/L (34-104); ANION GAP 11.8 (7.0-16.0); BUN - UREA NITROGEN 22 mg/dL (7-25); CALCIUM SERUM 8.5 mg/dL (8.6-10.3); CARBON DIOXIDE 25.6 mEq/L (21.0-31.0); CHLORIDE 101 mEq/L (98-107); CREATININE - SERUM 1.4 mg/dL (0.7-1.3); GLUCOSE 253 mg/dL (70-105); POTASSIUM SERUM 3.4 mEq/L (3.5-5.1); SGOT 10 U/L (13-39); SGPT/ALT 19 U/L (7-52); SODIUM SERUM 135 mEq/L (136-145); TOTAL PROTEIN,SERUM 6.2 gm/dL (6.0-8.3)
[2018-12-14] MEDS ORDERED: Piperacillin Sodium/Tazobact 3.375 gm Vial IV ONE (21:20)
[2018-12-14 22:26] LABS: URINE SOURCE FOLEY PORT
[2018-12-14 22:29] LABS: URINE BILIRUBIN NEGATIVE (NEGATIVE); URINE BLOOD LARGE (NEGATIVE); URINE GLUCOSE (UA) 500 mg/dL (NEGATIVE); URINE KETONE NEGATIVE (NEGATIVE); URINE LEUKOCYTE ESTERASE MODERATE (NEGATIVE); URINE MICROSCOPIC INDICATED? YES; URINE NITRATE NEGATIVE (NEGATIVE); URINE PROTEIN 30 mg/dL (NEGATIVE); URINE UROBILINOGEN 0.2 E.U./dL (0.2 - 1.0)
[2018-12-14 22:31] LABS: URINE CLARITY TURBID (CLEAR); URINE COLOR YELLOW
[2018-12-14 22:37] LABS: URINE BACTERIA MODERATE /hpf (NONE SEEN); URINE EPITHELIAL CELLS OCCASIONAL /lpf (FEW)
--- NOTE | 2018-12-14 23:06 | ER Physician Documentation ---
DATE OF SERVICE: 12/14/2018 HISTORY OF PRESENT ILLNESS: The patient was seen today on 12/14/2018, patient of Dr. Luis Felipe Enriquez. I reviewed all the things that came [facility] and spoke to Dr. Briscoe. The patient speaks only Cypriot and some history is obtained by medical records, some from the nurse who spoke a little bit of broken Cypriot. The patient's chief complaint is abdominal pain, epigastric pain, nausea, occasional vomiting and GERD as well as some hiccups and something coming from the stomach almost going to the throat area. The patient also has a Daugherty catheter and has had previous history of urinary tract infection. The patient is known to be diabetic. The patient is known to have hypertension. The patient has depression and the patient has generalized weakness and abdominal pain. The patient also has chronically pain and the patient also has abdominal pain and has some pain when he moves his body. The patient cannot give any more history, so most of it is taken by talking to Dr. Briscoe as well as reviewing the old chart. The patient has been sent here by Dr. Briscoe for full evaluation. The patient is FULL CODE. The patient is not ambulatory. He is mostly bedridden since he has insomnia. PAST MEDICAL HISTORY: Positive for diabetes, hypertension, dementia and hepatic encephalopathy, urinary tract infection, depression, insomnia as well as generalized weakness. The patient's personal history cannot be obtained, but he said that he is not . He does not have any children. His diet is mechanical soft diet texture regular thin in consistency and no added salt, 2 g sodium diet. REVIEW OF SYSTEMS: EYES: The patient has no history of any double vision, blurring, blindness. He has some looks like an ulcer area on the medial part of both corneas, but the patient denies any complaints as far as eyes are concerned. HENT: Appears to be normal. There is no thyroid enlargement. There are no meningeal signs. MUSCULOSKELETAL: Bones and joints have mild arthritis and the patient has stiffness in the hip, stiffness in the knee and he could bend the knee to straight position with pain. GASTROINTESTINAL: The patient's other review of systems as far as the GI, I already mentioned that, the patient did not have previous GI surgery or any gallbladder surgery. The patient has never had any gallbladder problem and I am not sure the patient had any EGD done before, but I think this time, he might need some EGD, but we will leave it to Dr. Briscoe to decide. HEART: The patient never had any angina pectoris, myocardial infarction, rheumatic fever, valvular heart disease, pericardial disease, etc. PULMONARY: No history of any cough or shortness of breath. No history of pneumonia, weakness, congestive heart failure or lungs and heart problems, etc. are all negative. ENDOCRINE: The patient has diabetes mellitus, but no history of thyroid problem. PHYSICAL EXAMINATION: VITAL SIGNS: Essentially 98.1, pulse is 77, respirations 14, blood pressure 143/78, oxygen saturation 99%. No arrhythmia was noted. Height of the patient is 5 feet 6 inches, weighing 108 pounds. GENERAL: The patient appears to be awake, alert, oriented, appears to be of the stated age. There is no evidence of any meningeal signs. EXTREMITIES: No edema over the legs. Mild degenerative joint disease is noted. Mild stiffness of the body is noted. The patient is found to be weak and pain. The patient has no thyroid enlargement, no evidence of any other abnormality. No edema over the legs. CHEST: Appears to be normal. No deformity of the chest wall. Trachea is central. Fairly good air entry in both lungs. No rales, rhonchi or bronchial breathing. ABDOMEN: Soft and has mild epigastric pain, tenderness. No guarding is noted. Mild right upper quadrant pain. There is no evidence of any gallbladder infection or cholecystitis, signs are negative. GASTROINTESTINAL: The patient has a Daugherty catheter with some residue in the urine, appears to be some pus-like thing. ORDERS IN THE HOSPITAL: The patient had a TB test done. The patient was admitted in the rehab unit. The patient had antidepressant medication and the symptoms were headache, dizziness, tremors, insomnia, fatigue, anxiety, nausea, etc. All these things were mentioned over there including fever. The patient is a duncan. I am not sure why menstrual cycles are written here. He has a Daugherty catheter. Daugherty catheter is for a little longer time. We will change the Daugherty catheter. He has anti-depression and he is taking medication for pain. The patient has indwelling catheter. The patient has blood sugar and the patient is getting medication for that, insulin as needed. The patient had dental consult done also. The patient has got Pneumovax, etc. podiatry care, etc. has been given. Accu-Chek a.c. and at bedtime with coverage has been ordered by Dr. Briscoe. For pain, the patient is getting hydrocodone with acetaminophen which is [place] and the patient is getting lactobacillus capsule and megestrol acetate suspension 400 mg that is 10 mL to increase some appetite, Mylanta and oyster shell. The patient is also on PPI, Protonix and Tylenol for pain. FINAL DIAGNOSES: Epigastric pain, gastritis, most likely gastroesophageal reflux disease, but one needs to rule out patient has any cancer or any other esophagitis, etc. Hence, I believe besides giving him Protonix, besides giving him Reglan, I would suggest that the patient would need an EGD that would be decided by Dr. Briscoe. We will get an ultrasound of the gallbladder to see if there is any gallbladder infection. Other diagnoses includes he has hiccups, he has abdominal pain, he has diabetes mellitus, he has depression, he has dementia he has insomnia, generalized weakness and maybe urinary tract infection, for which couple of antibiotics are given. Urine was sent for culture and sensitivity and abdominal x-ray has been ordered and a chest x-ray has been ordered. No report has been back. If I find some report available, I will dictate it out to you. Thank you very much Dr. Briscoe for your kindness and thanks [place] and everybody for their kindness too. Thanks to our staff helping me out in the management of this patient and looking of this patient. The patient is awake and alert and oriented, etc. JOB# [id number]
--- NOTE | 2018-12-15 11:36 | Diagnostic Imaging Report ---
CHEST X-RAY: AP view INDICATION: Pneumonia COMPARISON: Chest x-ray 11/02/2018 FINDINGS: Slight increased left basal lung markings are noted. No effusions. Heart size normal. Degenerative changes of the spine are noted. IMPRESSION: Slight increased left basal lung markings which may be due to atelectasis, however, faint infiltrate cannot be excluded. Clinical correlation and short-term follow repeat exam is recommended.
--- NOTE | 2018-12-15 11:39 | Diagnostic Imaging Report ---
Abdomen lateral decubitus views Indication: pain Comparison: none Findings: Copious stool is noted. There is indeterminate lucency along the right hemiabdomen on the left lateral decubitus views. Gas-filled bowel are noted. Impression: Indeterminate lucency of the right hemiabdomen on the left lateral decubitus views. Free air cannot be completely ruled out. Recommend further assessment with CT examination given patient's clinical history ultrasound follow-up of the gallbladder is also recommended. In the setting of trauma, if clinical symptoms persist and there is continued concern for an occult fracture, follow up exams in 5-7 days is suggested.
--- NOTE | 2018-12-15 12:15 | History and Physical ---
History of Present Illness - HPI Chief Complaint: 78 y/o male patient was brought into ER due to abdominal pain with occasional vomiting. HPI: 78 y/o male patient was admitted to [facility] due to abdominal pain with occasional vomiting, Body aches and pain. Patient has history of Gerd, Diabetes, Hypertension, Dementia, UTI, Depression, Insomnia and Generalized weakness. Patient had a chest x-ray done which showed slight increased left basal lung markings which may be to Atelectasis. Patient was diagnosed with Gastritis, Generalized weakness, R/o Cancer , h/o Hepatic Encephalopathy, Epigastric pain and Mild Arthritis. 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 GI: Report: GERD, Gastritis Psych: Report: Depression, Other (Insomnia.) Musculoskeletal: Report: Weakness, Other (Arthritis.) Rheumatologic: Report: No pertinent Hx Infectious Disease: Report: No Pertinent Hx Renal/: Report: UTI Endocrine: Report: Diabetes Dermatology: Report: No Pertinent Hx - Past Surgical History Past Surgical History: No pertinent Hx Family Medical History - Family Member Mother History Unknown: Yes Social History Smoke: No Alcohol: None Drugs: None Lives: Skilled Nursing Domestic Violence: Negative Health Maintenance Health Maintenance: Other (chart.) - Medications Home Medications: Home Medication Medication Instructions Recorded Type Acetaminophen [Tylenol] 650 mg PO Q6HR PRN 12/14/18 History Calcium Carbonate/Vitamin D2 1 tab PO BID 12/14/18 History [Nature's Blend Oyster Shell Calcium D 250 mg-] Docusate Sodium [Colace] 100 mg PO BID 12/14/18 History Escitalopram Oxalate [Lexapro] 10 mg PO DAILY 12/14/18 History Hydrocodone/Acetaminophen 1 each PO Q4H PRN 12/14/18 History [Hydrocodone-Acetamin 10-325 mg] Hydrocodone/Acetaminophen [Logan 1 each PO DAILY 12/14/18 History 10-325 Tablet] Insulin Human Regular [humuLIN R] See Protocol SQ BIDAC 12/14/18 History Insulin Human Regular [humuLIN R] See Protocol SQ BIDAC 12/14/18 History Lactobacillus Acidophilus 1 each PO DAILY 12/14/18 History [Acidophilus] Lactulose 10 ml PO Q8H PRN 12/14/18 History Mag Hydrox/Al Hydrox/Simeth 30 ml PO Q4H PRN 12/14/18 History [Aluminum & Magnesium Hydroxide/Simethicone 35] Megestrol Acetate 400 mg PO DAILY 12/14/18 History Pantoprazole Sodium 40 mg PO DAILY 12/14/18 History Other Medications: Please see Medication reconciliation sheet. - Allergies Allergies/Adverse Reactions: Allergies Allergy/AdvReac Type Severity Reaction Status Date / Time No Known Allergies Allergy Verified 10/30/18 15:46 Review of Systems - Review of Systems Review of Systems: Patient was admitted due to abdominal pain and body aches, pain. Constitutional: Report: Weakness Eyes: Report: No Significant ENT: Report: No Significant Respiratory: Report: No Significant Cardiovascular: Report: No Significant Gastrointestinal: Report: Nausea, Abdominal Pain, Other (Garsia catheter with pus like residue.) Genitourinary: Report: No Significant Musculoskeletal: Report: Other (Joint and Bone pain. ) Neurological: Report: Weakness Physical Exam - Physical Exam HEENT: Report: Ears Nose Throat within normal limits Neck: Report: Within normal limits Cardiovascular Systems: Report: +s1/s2 noted Respiratory: Report: Breath Sounds are within normal limits Abdomen: Report: Tender to palpation Back: Report: Inspection of back is within normal limits. Extremities: Report: Non-tender to palpation. Skin: Report: Color of skin is within normal limits Neuro/Psych: Report: Depressed affect - Lab Results All Lab Results last 24 hours: Laboratory Results - last 24 hr 12/14/18 12/14/18 12/14/18 20:15 20:15 20:15 WBC 7.7 RBC 4.13 Hgb 12.1 Hct 35.7 L MCV 86.4 MCH 29.3 MCHC Differential 34.0 RDW 12.8 Plt Count 274 MPV 8.6 Neutrophils % 61.8 Lymphocytes % 26.6 Monocytes % 6.9 Eosinophils % 4.6 Basophils % 0.1 PT 10.1 INR 0.97 PTT (Actin FS) 31.1 Sodium Potassium Chloride Carbon Dioxide Anion Gap BUN Creatinine Est GFR ( Amer) Est GFR (Non-Af Amer) BUN/Creatinine Ratio Glucose POC Glucose Calcium Magnesium 2.3 AST ALT Alkaline Phosphatase B-Natriuretic Peptide Total Protein Albumin Globulin Albumin/Globulin Ratio Triglycerides 170 H Cholesterol 132 LDL Cholesterol Direct 87 HDL Cholesterol 31 Urine Source Urine Color Urine Clarity Urine pH Ur Specific [place] Urine Protein Urine Glucose (UA) Urine Ketones Urine Blood Urine Nitrate Urine Bilirubin Urine Urobilinogen Ur Leukocyte Esterase Urine RBC Urine WBC Ur Epithelial Cells Urine Bacteria 12/14/18 12/14/18 12/14/18 20:15 20:15 20:20 WBC RBC Hgb Hct MCV MCH MCHC Differential RDW Plt Count MPV Neutrophils % Lymphocytes % Monocytes % Eosinophils % Basophils % PT INR PTT (Actin FS) Sodium 135 L Potassium 3.4 L Chloride 101 Carbon Dioxide 25.6 Anion Gap 11.8 BUN 22 Creatinine 1.4 H Est GFR ( Amer) TNP Est GFR (Non-Af Amer) TNP BUN/Creatinine Ratio 15.7 Glucose 253 H POC Glucose Calcium 8.5 L Magnesium AST 10 L ALT 19 Alkaline Phosphatase 75 B-Natriuretic Peptide 59.2 Total Protein 6.2 Albumin 3.3 L Globulin 2.9 Albumin/Globulin Ratio 1.1 Triglycerides Cholesterol LDL Cholesterol Direct HDL Cholesterol Urine Source GARSIA PORT Urine Color YELLOW Urine Clarity TURBID Urine pH 6.0 Ur Specific [place] 1.010 Urine Protein 30 H Urine Glucose (UA) 500 H Urine Ketones NEGATIVE Urine Blood LARGE H Urine Nitrate NEGATIVE Urine Bilirubin NEGATIVE Urine Urobilinogen 0.2 Ur Leukocyte Esterase MODERATE H Urine RBC 10-25 H Urine WBC 6-10 Ur Epithelial Cells OCCASIONAL Urine Bacteria MODERATE H 12/15/18 08:04 WBC RBC Hgb Hct MCV MCH MCHC Differential RDW Plt Count MPV Neutrophils % Lymphocytes % Monocytes % Eosinophils % Basophils % PT INR PTT (Actin FS) Sodium Potassium Chloride Carbon Dioxide Anion Gap BUN Creatinine Est GFR ( Amer) Est GFR (Non-Af Amer) BUN/Creatinine Ratio Glucose POC Glucose 161 H Calcium Magnesium AST ALT Alkaline Phosphatase B-Natriuretic Peptide Total Protein Albumin Globulin Albumin/Globulin Ratio Triglycerides Cholesterol LDL Cholesterol Direct HDL Cholesterol Urine Source Urine Color Urine Clarity Urine pH Ur Specific [place] Urine Protein Urine Glucose (UA) Urine Ketones Urine Blood Urine Nitrate Urine Bilirubin Urine Urobilinogen Ur Leukocyte Esterase Urine RBC Urine WBC Ur Epithelial Cells Urine Bacteria - Assessment Assessment: Epigastric pain. Mild Arthritis. R/o Cancer. Gastritis. Gerd. Diabetes. Hypertension. Dementia. UTI.complicated Depression. Insomnia. Generalized weakness. Atelectasis. back pain - Plan Plan: Monitor Labs. Pain Management.. Continue collaborating with consulting specialists case management and nursing team. Will Monitor patient and continue current treatment plan as ordered. Patient will have an ID consult, GI consult and Psych consult.
[2018-12-15 13:42] LABS: BILIRUBIN,TOTAL 0.1 mg/dL (0.3-1.0)
[2018-12-15] MEDS: APAP/Oxycodone 5/325mg Tab PO PRN ×2 (14:51→19:56)
[2018-12-15] MEDS: D5-0.45NS 1,000 ML IV SCH (16:18)
[2018-12-15] MEDS: Pantoprazole 40 mg EC Tab PO SCH (21:29)
[2018-12-16] MEDS: INSULIN LISPRO SLIDING SCALE 100 UNITS/ML UNIT SUBQ SCH ×2 (06:46→16:23)
[2018-12-16 08:13] LABS: A1C 7.8 % (4.8-5.6)
[2018-12-16 08:29] LABS: ANION GAP 11.1 (7.0-16.0); BUN - UREA NITROGEN 21 mg/dL (7-25); CALCIUM SERUM 8.4 mg/dL (8.6-10.3); CARBON DIOXIDE 24.7 mEq/L (21.0-31.0); CHLORIDE 103 mEq/L (98-107); CREATININE - SERUM 1.3 mg/dL (0.7-1.3); GLUCOSE 170 mg/dL (70-105); POTASSIUM SERUM 3.8 mEq/L (3.5-5.1); SODIUM SERUM 135 mEq/L (136-145)
[2018-12-16] MEDS: D5-0.45NS 1,000 ML IV SCH (11:51)
--- NOTE | 2018-12-16 17:42 | Internal Medicine Prog Note ---
Internal Medicine Subjective - Subjective Service Date: 12/16/18 Patient seen and examined:: with staff Patient is:: awake Per staff patient has:: tolerating meds Internal Medicine Objective - Results Result Diagrams: 12/14/18 20:15 12/16/18 08:00 Recent Labs: Laboratory Last Values WBC 7.7 Th/cmm (4.8-10.8) 12/14/18 20:15 RBC 4.13 Mil/cmm (3.80-5.80) 12/14/18 20:15 Hgb 12.1 gm/dL (12-16) 12/14/18 20:15 Hct 35.7 % (41.0-60) L 12/14/18 20:15 MCV 86.4 fl (80-99) 12/14/18 20:15 MCH 29.3 pg (27.0-31.0) 12/14/18 20:15 MCHC Differential 34.0 pg (28.0-36.0) 12/14/18 20:15 RDW 12.8 % (11.5-20.0) 12/14/18 20:15 Plt Count 274 Th/cmm (150-400) 12/14/18 20:15 MPV 8.6 fl 12/14/18 20:15 Neutrophils % 61.8 % (40.0-80.0) 12/14/18 20:15 Lymphocytes % 26.6 % (20.0-50.0) 12/14/18 20:15 Monocytes % 6.9 % (2.0-10.0) 12/14/18 20:15 Eosinophils % 4.6 % (0.0-5.0) 12/14/18 20:15 Basophils % 0.1 % (0.0-2.0) 12/14/18 20:15 PT 10.1 SECONDS (9.5-11.5) 12/14/18 20:15 INR 0.97 (0.5-1.4) 12/14/18 20:15 PTT (Actin FS) 31.1 SECONDS (26.0-38.0) 12/14/18 20:15 Sodium 135 mEq/L (136-145) L 12/16/18 08:00 Potassium 3.8 mEq/L (3.5-5.1) 12/16/18 08:00 Chloride 103 mEq/L (98-107) 12/16/18 08:00 Carbon Dioxide 24.7 mEq/L (21.0-31.0) 12/16/18 08:00 Anion Gap 11.1 (7.0-16.0) 12/16/18 08:00 BUN 21 mg/dL (7-25) 12/16/18 08:00 Creatinine 1.3 mg/dL (0.7-1.3) 12/16/18 08:00 Est GFR ( Amer) TNP 12/16/18 08:00 Est GFR (Non-Af Amer) TNP 12/16/18 08:00 BUN/Creatinine Ratio 16.2 12/16/18 08:00 Glucose 170 mg/dL (70-105) H 12/16/18 08:00 POC Glucose 263 MG/DL (70 - 105) H 12/16/18 16:17 Calcium 8.4 mg/dL (8.6-10.3) L 12/16/18 08:00 Magnesium 2.3 mg/dL (1.9-2.7) 12/14/18 20:15 Total Bilirubin 0.1 mg/dL (0.3-1.0) L 12/14/18 20:15 AST 10 U/L (13-39) L 12/14/18 20:15 ALT 19 U/L (7-52) 12/14/18 20:15 Alkaline Phosphatase 75 U/L (34-104) 12/14/18 20:15 B-Natriuretic Peptide 59.2 pg/mL (5.0-100.0) 12/14/18 20:15 Total Protein 6.2 gm/dL (6.0-8.3) 12/14/18 20:15 Albumin 3.3 gm/dL (4.2-5.5) L 12/14/18 20:15 Globulin 2.9 gm/dL 12/14/18 20:15 Albumin/Globulin Ratio 1.1 (1.0-1.8) 12/14/18 20:15 Triglycerides 170 mg/dL (<150) H 12/14/18 20:15 Cholesterol 132 mg/dL (<200) 12/14/18 20:15 LDL Cholesterol Direct 87 mg/dL (75-193) 12/14/18 20:15 HDL Cholesterol 31 mg/dL (23-92) 12/14/18 20:15 Urine Source GARSIA PORT 12/14/18 20:20 Urine Color YELLOW 12/14/18 20:20 Urine Clarity TURBID (CLEAR) 12/14/18 20:20 Urine pH 6.0 (4.6 - 8.0) 12/14/18 20:20 Ur Specific [place] 1.010 (1.005-1.030) 12/14/18 20:20 Urine Protein 30 mg/dL (NEGATIVE) H 12/14/18 20:20 Urine Glucose (UA) 500 mg/dL (NEGATIVE) H 12/14/18 20:20 Urine Ketones NEGATIVE mg/dL (NEGATIVE) 12/14/18 20:20 Urine Blood LARGE (NEGATIVE) H 12/14/18 20:20 Urine Nitrate NEGATIVE (NEGATIVE) 12/14/18 20:20 Urine Bilirubin NEGATIVE (NEGATIVE) 12/14/18 20:20 Urine Urobilinogen 0.2 E.U./dL (0.2 - 1.0) 12/14/18 20:20 Ur Leukocyte Esterase MODERATE (NEGATIVE) H 12/14/18 20:20 Urine RBC 10-25 /hpf (0-5) H 12/14/18 20:20 Urine WBC 6-10 /hpf (0-5) 12/14/18 20:20 Ur Epithelial Cells OCCASIONAL /lpf (FEW) 12/14/18 20:20 Urine Bacteria MODERATE /hpf (NONE SEEN) H 12/14/18 20:20 - Physical Exam Vitals and I&O: Vital Signs Temp 98.4 F 12/16/18 16:00 Pulse 68 12/16/18 16:00 Resp 18 12/16/18 16:00 BP 133/80 12/16/18 16:00 Pulse Ox 94 12/16/18 16:00 Intake & Output 12/15/18 12/16/18 12/16/18 18:59 06:59 18:59 Intake Total 1000 977.5 Output Total 1500 1775 Balance -1500 -775 977.5 Weight (lbs) 188 lb 188 lb Intake: Intake, IV Amount 977.5 D5-0.45NS 1,000 ml @ 50 977.5 mls/hr IV .Q20H ALONDRA Rx#: [id number] Oral 1000 Output: Urine 1500 1775 Other: # Bowel Movements 1 Stool Characteristics Soft Brown Weight Source Bedscale Bedscale Active Medications: Current Medications Dextrose/Sodium Chloride (D5-0.45ns) 1,000 mls @ 50 mls/hr IV .Q20H ALONDRA Stop: 02/13/19 16:05 Last Admin: 12/16/18 11:51 Dose: 50 mls/hr Insulin Human Lispro (Humalog Insulin Sliding Scale) 0 units SUBQ BIDAC ALONDRA; Protocol Stop: 02/14/19 07:29 Last Admin: 12/16/18 16:23 Dose: 6 units Oxycodone/Acetaminophen (Percocet 5/325mg Oral Tab) 1 tab PO Q6H PRN PRN Reason: Abdominal Pain Stop: 02/13/19 14:45 Last Admin: 12/15/18 19:56 Dose: 1 tab Pantoprazole Sodium (Protonix) 40 mg PO NOW ALONDRA Stop: 02/12/19 20:44 Last Admin: 12/15/18 21:29 Dose: 40 mg General: alert HEENT: NC/AT, PERRLA Neck: Supple Lungs: CTAB Cardiovascular: RRR, Normal S1, Normal S2, without murmur Abdomen: soft, non-tender, non-distended, positive bowel sound Extremities: excoriation Neurological: alert Internal Medicine Assmt/Plan - Assessment Assessment: Epigastric pain. Mild Arthritis. R/o Cancer. Gastritis. Gerd. Diabetes. Hypertension. Dementia. UTI.complicated Depression. Insomnia. Generalized weakness. Atelectasis. back pain - Plan Plan: Monitor Labs. Pain Management.. Continue collaborating with consulting specialists case management and nursing team. Will Monitor patient and continue current treatment plan as ordered. Patient will have an ID consult, GI consult and Psych consult. Nutritional Asmnt/Malnutr-PDOC - Dietary Evaluation Malnutrition Findings (Please click <Entered> for more info): Nutritional Asmnt/Malnutrition Start: 12/16/18 13: 59 Text: Status: Complete Freq: Protocol: Document 12/16/18 13:59 FRANSISCO (Rec: 12/16/18 14:02 [email or web address] [email or web address]) Nutritional Asmnt/Malnutrition Patient General Information Nutritional Screening Moderate Risk Consult Diagnosis Abdominal Pain Pertinent Medical Hx/Surgical Hx DM, GERD, Dementia, HTN, Arthritis Subjective Information Consult: GERD, DM, Abdominal Pain Pt is a 78-year-old male admitted on 12/14 from group home c/o abdominal pain, nausea, and GERD. Pt only speaks/understands Turkmen. Pt was NPO 12/15 at Breakfast and Lunch, ate 75% dinner. Although Pt was not feeling well, he ate 100% breakfast this morning. Visited Pt after lunch, Pt was asleep. Pt had a bucket next to him with vomit, RN stated Pt was not feeling great, Pt stated a 10/ 10 stomach pain on 12/15 per Nurse note. Pt is waiting on a GI consult. Will continue to monitor glucose labs, vomiting , and PO intake. Will try to provide nutrition education at another time when Pt is awake and feeling better. HT: 56 WT: 188 LB (85.45 kg) ABW: 154 LB (69.78 kg) BMI: 30.34 (Obese) GI: Abdominal Pain, Large, Round, Bowel sounds normal BM: 12/16 x1 I/O: 1000/3275 (-2275) Skin: WNL, Warm, Dry, Intact Devang: 13 Diet Order: Mechanical Soft, LISY Estimated Energy Needs: ( Geriatric, ABW) 6162-7909 kcals (25-30 kcals/ kg) 70-84Pro (1.0-1.2 g/kg) 8090-3676 ml (25-30 ml/kg) Current Diet Order/ Nutrition Support Mechanical Soft, LISY Pertinent Medications D5-0.45ns, INS-SS, Protonix Pertinent Labs 12/15: Hgb/Hct 12.1/35.7, Ca 8.4 , Glucose 170 POC Glucose (last 24 hours): 161, 187 12/14: T Bili 0.1, AST 10, Alb 3 .3 Nutritional Hx/Data Height 5 ft 6 in Height (Calculated Centimeters) 167.6 Current Weight (lbs) 188 lb Weight (Calculated Kilograms) 85.3 Weight (Calculated Grams) 57778.4 [place] Body Weight 142 LB (64.55 kg) % [place] Body Weight 132 Body Mass Index (BMI) 30.3 Weight Status Obese GI Symptoms GI Symptoms Vomitting Last BM 12/16 x1 Skin Integrity/Comment: Skin: WNL, Warm, Dry, Intact Devang: 13 Current %PO Good (75-100%) Estimated Nutritional Goals BEE in Kcals: Adj wt of IBW Calories/Kcals/Kg 25-30 Kcals Calculated 1264-1742 Protein: Adj wt of IBW Protein g/k.0-1.2 Protein Calculated 70-84 Fluid: ml 5649-9405 ml (25-30 ml/kg) Nutritional Problem 1. Problem Problem Altered nutrition related labs Etiology r/t endocrine dysfunction Signs/Symptoms: aeb Glucose 170, POC Glucose ( last 24 hours): 161, 187. Malnutrition Related to Morbid Obesity Malnutrition related to morbid obesity No Intervention/Recommendation Comments 1. Continue with Mechanical Soft, LISY diet as ordered. 2. Consider adding CCHO to diet Rx to support glucose control. 3. Continue antihyperglycemic medications for glucose control per MD order. Expected Outcomes/Goals Expected Outcomes/Goals 1. PO intake to meet 75% of nutritional needs. 2. Monitor PO intake, wt, skin integrity, and nutrition related labs to trend WNL. 3. F/U as moderate risk in 3-5 days, 12/19-12/21
[2018-12-16] MEDS: Pantoprazole 40 mg EC Tab PO SCH (21:00)
[2018-12-16] MEDS: Hydrocodone/APAP 10 mg/325 mg Tab PO PRN (21:47)
[2018-12-17] MEDS ORDERED: INSULIN LISPRO 100 UNIT/ML VIAL SUBQ ONE (06:33)
[2018-12-17] MEDS: INSULIN LISPRO SLIDING SCALE 100 UNITS/ML UNIT SUBQ SCH ×2 (06:47→17:30)
[2018-12-17] MEDS: D5-0.45NS 1,000 ML IV SCH (07:06)
[2018-12-17] MEDS: Lactobacillus Rhamnosus GG 15 Billion CFU CAP.SPRINK PO SCH (08:14)
[2018-12-17] MEDS: Hydrocodone/APAP 10 mg/325 mg Tab PO PRN ×2 (08:17→22:04)
--- NOTE | 2018-12-17 14:14 | Internal Medicine Prog Note ---
Internal Medicine Subjective - Subjective Service Date: 12/17/18 Patient seen and examined:: with staff Patient is:: awake, verbal, in bed Patient Complaints of:: vomitting Per staff patient has:: no episodes of fall, tolerating meds Internal Medicine Objective - Results Result Diagrams: 12/14/18 20:15 12/16/18 08:00 Recent Labs: Laboratory Last Values WBC 7.7 Th/cmm (4.8-10.8) 12/14/18 20:15 RBC 4.13 Mil/cmm (3.80-5.80) 12/14/18 20:15 Hgb 12.1 gm/dL (12-16) 12/14/18 20:15 Hct 35.7 % (41.0-60) L 12/14/18 20:15 MCV 86.4 fl (80-99) 12/14/18 20:15 MCH 29.3 pg (27.0-31.0) 12/14/18 20:15 MCHC Differential 34.0 pg (28.0-36.0) 12/14/18 20:15 RDW 12.8 % (11.5-20.0) 12/14/18 20:15 Plt Count 274 Th/cmm (150-400) 12/14/18 20:15 MPV 8.6 fl 12/14/18 20:15 Neutrophils % 61.8 % (40.0-80.0) 12/14/18 20:15 Lymphocytes % 26.6 % (20.0-50.0) 12/14/18 20:15 Monocytes % 6.9 % (2.0-10.0) 12/14/18 20:15 Eosinophils % 4.6 % (0.0-5.0) 12/14/18 20:15 Basophils % 0.1 % (0.0-2.0) 12/14/18 20:15 PT 10.1 SECONDS (9.5-11.5) 12/14/18 20:15 INR 0.97 (0.5-1.4) 12/14/18 20:15 PTT (Actin FS) 31.1 SECONDS (26.0-38.0) 12/14/18 20:15 Sodium 135 mEq/L (136-145) L 12/16/18 08:00 Potassium 3.8 mEq/L (3.5-5.1) 12/16/18 08:00 Chloride 103 mEq/L (98-107) 12/16/18 08:00 Carbon Dioxide 24.7 mEq/L (21.0-31.0) 12/16/18 08:00 Anion Gap 11.1 (7.0-16.0) 12/16/18 08:00 BUN 21 mg/dL (7-25) 12/16/18 08:00 Creatinine 1.3 mg/dL (0.7-1.3) 12/16/18 08:00 Est GFR ( Amer) TNP 12/16/18 08:00 Est GFR (Non-Af Amer) TNP 12/16/18 08:00 BUN/Creatinine Ratio 16.2 12/16/18 08:00 Glucose 170 mg/dL (70-105) H 12/16/18 08:00 POC Glucose 189 MG/DL (70 - 105) H 12/17/18 05:57 Calcium 8.4 mg/dL (8.6-10.3) L 12/16/18 08:00 Magnesium 2.3 mg/dL (1.9-2.7) 12/14/18 20:15 Total Bilirubin 0.1 mg/dL (0.3-1.0) L 12/14/18 20:15 AST 10 U/L (13-39) L 12/14/18 20:15 ALT 19 U/L (7-52) 12/14/18 20:15 Alkaline Phosphatase 75 U/L (34-104) 12/14/18 20:15 B-Natriuretic Peptide 59.2 pg/mL (5.0-100.0) 12/14/18 20:15 Total Protein 6.2 gm/dL (6.0-8.3) 12/14/18 20:15 Albumin 3.3 gm/dL (4.2-5.5) L 12/14/18 20:15 Globulin 2.9 gm/dL 12/14/18 20:15 Albumin/Globulin Ratio 1.1 (1.0-1.8) 12/14/18 20:15 Triglycerides 170 mg/dL (<150) H 12/14/18 20:15 Cholesterol 132 mg/dL (<200) 12/14/18 20:15 LDL Cholesterol Direct 87 mg/dL (75-193) 12/14/18 20:15 HDL Cholesterol 31 mg/dL (23-92) 12/14/18 20:15 Prostate Specific Ag 33.4 ng/mL (0.0-4.0) H 12/14/18 20:20 Urine Source [place] 12/14/18 20:20 Urine Color YELLOW 12/14/18 20:20 Urine Clarity TURBID (CLEAR) 12/14/18 20:20 Urine pH 6.0 (4.6 - 8.0) 12/14/18 20:20 Ur Specific [place] 1.010 (1.005-1.030) 12/14/18 20:20 Urine Protein 30 mg/dL (NEGATIVE) H 12/14/18 20:20 Urine Glucose (UA) 500 mg/dL (NEGATIVE) H 12/14/18 20:20 Urine Ketones NEGATIVE mg/dL (NEGATIVE) 12/14/18 20:20 Urine Blood LARGE (NEGATIVE) H 12/14/18 20:20 Urine Nitrate NEGATIVE (NEGATIVE) 12/14/18 20:20 Urine Bilirubin NEGATIVE (NEGATIVE) 12/14/18 20:20 Urine Urobilinogen 0.2 E.U./dL (0.2 - 1.0) 12/14/18 20:20 Ur Leukocyte Esterase MODERATE (NEGATIVE) H 12/14/18 20:20 Urine RBC 10-25 /hpf (0-5) H 12/14/18 20:20 Urine WBC 6-10 /hpf (0-5) 12/14/18 20:20 Ur Epithelial Cells OCCASIONAL /lpf (FEW) 12/14/18 20:20 Urine Bacteria MODERATE /hpf (NONE SEEN) H 12/14/18 20:20 - Physical Exam Vitals and I&O: Vital Signs Temp 97.3 F 12/17/18 12:15 Pulse 70 12/17/18 12:15 Resp 18 12/17/18 12:15 BP 126/80 12/17/18 12:15 Pulse Ox 100 12/17/18 12:15 Intake & Output 12/16/18 12/17/18 12/17/18 18:59 06:59 18:59 Intake Total 1777.5 1500 962.5 Output Total 1800 1500 Balance -22.5 0 962.5 Weight (lbs) 85.275 kg 85.275 kg Intake: Intake, IV Amount 977.5 962.5 D5-0.45NS 1,000 ml @ 50 977.5 962.5 mls/hr IV .Q20H [facility] Rx#: [id number] Oral 800 1500 Output: Urine 1800 1500 Other: # Bowel Movements 1 Weight Source Bedscale Bedscale Active Medications: Current Medications Acetaminophen (Tylenol) 650 mg PO Q6HR PRN PRN Reason: Pain or Fever >101 Stop: 02/14/19 17:41 Acetaminophen/Hydrocodone Bitart ([place] 10 Mg/325 Mg) 1 tab PO Q4H PRN PRN Reason: Pain (Severe) Stop: 02/14/19 17:41 Last Admin: 12/17/18 08:17 Dose: 1 tab Docusate Sodium (Colace) 100 mg PO BID [facility] Stop: 02/15/19 08:59 Last Admin: 12/17/18 08:14 Dose: 100 mg Escitalopram Oxalate (Lexapro) 10 mg PO DAILY [facility]; Protocol Stop: 02/15/19 08:59 Last Admin: 12/17/18 08:15 Dose: 10 mg Dextrose/Sodium Chloride (D5-0.45ns) 1,000 mls @ 50 mls/hr IV .Q20H [facility] Stop: 02/13/19 16:05 Last Admin: 12/17/18 07:06 Dose: 50 mls/hr Insulin Human Lispro (Humalog Insulin Sliding Scale) 0 units SUBQ BIDAC [facility]; Protocol Stop: 02/14/19 07:29 Last Admin: 12/17/18 06:47 Dose: 2 units Lactobacillus Rhamnosus (Culturelle 15b) 1 each PO DAILY [facility] Stop: 02/15/19 08:59 Last Admin: 12/17/18 08:14 Dose: 1 each Ondansetron HCl (Zofran) 4 mg IV Q6H PRN PRN Reason: Nausea / Vomiting Stop: 02/15/19 11:55 Last Admin: 12/17/18 12:21 Dose: 4 mg Oxycodone/Acetaminophen (Percocet 5/325mg Oral Tab) 1 tab PO Q6H PRN PRN Reason: Abdominal Pain Stop: 02/13/19 14:45 Last Admin: 12/15/18 19:56 Dose: 1 tab Pantoprazole Sodium (Protonix) 40 mg IVP QDAC [facility] Stop: 02/15/19 07:29 Last Admin: 12/17/18 06:52 Dose: 40 mg Physical Exam: Patient has been complaining of Epigastric pain and vomiting. General: weak, alert HEENT: NC/AT, PERRLA Neck: Supple Lungs: CTAB Cardiovascular: RRR, Normal S1, Normal S2, without murmur Abdomen: soft, tender, non-distended, positive bowel sound Extremities: excoriation Neurological: alert Internal Medicine Assmt/Plan - Assessment Assessment: Epigastric pain. Mild Arthritis. R/o Cancer. Gastritis. Gerd. Diabetes. Hypertension. Dementia. UTI. complicated. Depression. Insomnia. Generalized weakness. Atelectasis. Back pain. - Plan Plan: Continuation of care. Monitor Labs. Continue present meds as directed. Monitor diet/Nutritional support. Psych management per Psych. Accu-check daily, continue DM meds as directed. Monitor vitals, continue B/P meds as directed. Pain Management.. Continue collaborating with consulting specialists case management and nursing team. Will Monitor patient and continue present care management. Nutritional Asmnt/Malnutr-PDOC - Dietary Evaluation Malnutrition Findings (Please click <Entered> for more info): Nutritional Asmnt/Malnutrition Start: 12/16/18 13: 59 Text: Status: Complete Freq: Protocol: Document 12/16/18 13:59 FRANSISCO (Rec: 12/16/18 14:02 FRANSISCO [email or web address]) Nutritional Asmnt/Malnutrition Patient General Information Nutritional Screening Moderate Risk Consult Diagnosis Abdominal Pain Pertinent Medical Hx/Surgical Hx DM, GERD, Dementia, HTN, Arthritis Subjective Information Consult: GERD, DM, Abdominal Pain Pt is a 78-year-old male admitted on 12/14 from [facility] c/o abdominal pain, nausea, and GERD. Pt only speaks/understands [place]. Pt was NPO 12/15 at Breakfast and Lunch, ate 75% dinner. Although Pt was not feeling well, he ate 100% breakfast this morning. Visited Pt after lunch, Pt was asleep. Pt had a bucket next to him with vomit, RN stated Pt was not feeling great, Pt stated a 10/ 10 stomach pain on 12/15 per Nurse note. Pt is waiting on a GI consult. Will continue to monitor glucose labs, vomiting , and PO intake. Will try to provide nutrition education at another time when Pt is awake and feeling better. HT: 56 WT: 188 LB (85.45 kg) ABW: 154 LB (69.78 kg) BMI: 30.34 (Obese) GI: Abdominal Pain, Large, Round, Bowel sounds normal BM: 12/16 x1 I/O: 1000/3275 (-2275) Skin: WNL, Warm, Dry, Intact Devang: 13 Diet Order: Mechanical Soft, LISY Estimated Energy Needs: ( Geriatric, ABW) 2449-8458 kcals (25-30 kcals/ kg) 70-84Pro (1.0-1.2 g/kg) 3888-9599 ml (25-30 ml/kg) Current Diet Order/ Nutrition Support Mechanical Soft, LISY Pertinent Medications D5-0.45ns, INS-SS, Protonix Pertinent Labs 12/15: Hgb/Hct 12.1/35.7, Ca 8.4 , Glucose 170 POC Glucose (last 24 hours): 161, 187 12/14: T Bili 0.1, AST 10, Alb 3 .3 Nutritional Hx/Data Height 1.68 m Height (Calculated Centimeters) 167.6 Current Weight (lbs) 85.275 kg Weight (Calculated Kilograms) 85.3 Weight (Calculated Grams) 16634.4 [place] Body Weight 142 LB (64.55 kg) % [place] Body Weight 132 Body Mass Index (BMI) 30.3 Weight Status Obese GI Symptoms GI Symptoms Vomitting Last BM 12/16 x1 Skin Integrity/Comment: Skin: WNL, Warm, Dry, Intact Devang: 13 Current %PO Good (75-100%) Estimated Nutritional Goals BEE in Kcals: Adj wt of IBW Calories/Kcals/Kg 25-30 Kcals Calculated 3939-2829 Protein: Adj wt of IBW Protein g/k.0-1.2 Protein Calculated 70-84 Fluid: ml 7711-7052 ml (25-30 ml/kg) Nutritional Problem 1. Problem Problem Altered nutrition related labs Etiology r/t endocrine dysfunction Signs/Symptoms: aeb Glucose 170, POC Glucose ( last 24 hours): 161, 187. Malnutrition Related to Morbid Obesity Malnutrition related to morbid obesity No Intervention/Recommendation Comments 1. Continue with Mechanical Soft, LISY diet as ordered. 2. Consider adding CCHO to diet Rx to support glucose control. 3. Continue antihyperglycemic medications for glucose control per MD order. Expected Outcomes/Goals Expected Outcomes/Goals 1. PO intake to meet 75% of nutritional needs. 2. Monitor PO intake, wt, skin integrity, and nutrition related labs to trend WNL. 3. F/U as moderate risk in 3-5 days, 12/19-12/21
[2018-12-17] MEDS ORDERED: IOHEXOL 300mgI/mL 100 ML VIAL IVP ONE (15:03)
[2018-12-17 15:26] LABS: % BASOPHILS 0.8 % (0.0-2.0); % EOSINOPHILS 4.7 % (0.0-5.0); % LYMPHOCYTES 23.9 % (20.0-50.0); % MONOCYTES 5.3 % (2.0-10.0); % NEUTROPHILS 65.3 % (40.0-80.0); BASOPHILE ABSOLUTE 0.1 Th/cumm (0-0.2); EOSINOPHILE ABSOLUTE 0.4 Th/cmm (0.1-0.4); HEMATOCRIT 34.2 % (41.0-60); HEMOGLOBIN 11.5 gm/dL (12-16); LYMPHOCYTE ABSOLUTE 1.8 Th/cmm (1.5-3.0); MEAN CELL VOLUME 85.4 fl (80-99); MEAN CORPUSCULAR HEMOGLOBIN 28.8 pg (27.0-31.0); MEAN CORPUSCULAR HGB CONC 33.7 pg (28.0-36.0); MONOCYTE ABSOLUTE 0.4 Th/cmm (0.3-1.0); NEUTROPHILE ABSOLUTE 4.8 Th/cmm (1.8-8.0); PLATELET COUNT 291 Th/cmm (150-400); WHITE BLOOD COUNT 7.5 Th/cmm (4.8-10.8)
[2018-12-17 15:39] LABS: ALB/GLOB RATIO 1.1 (1.0-1.8); ALBUMIN 3.1 gm/dL (4.2-5.5); ALKALINE PHOSPHATASE 61 U/L (34-104); BUN - UREA NITROGEN 22 mg/dL (7-25); CALCIUM SERUM 8.5 mg/dL (8.6-10.3); CARBON DIOXIDE 26.6 mEq/L (21.0-31.0); CHLORIDE 102 mEq/L (98-107); CREATININE - SERUM 1.3 mg/dL (0.7-1.3); GLUCOSE 189 mg/dL (70-105); LIPASE 27 U/L (11-82); POTASSIUM SERUM 4.6 mEq/L (3.5-5.1); SGOT 14 U/L (13-39); SGPT/ALT 20 U/L (7-52); SODIUM SERUM 133 mEq/L (136-145); TOTAL PROTEIN,SERUM 5.9 gm/dL (6.0-8.3)
[2018-12-17 22:32] LABS: BILIRUBIN,TOTAL 0.2 mg/dL (0.3-1.0)
--- NOTE | 2018-12-17 23:48 | Consultation ---
DATE OF CONSULTATION: 12/17/2018 HISTORY OF PRESENT ILLNESS: This is an 78-year-old male, currently in the hospital, pain in the abdomen, GERD, gastritis, intractable hiccups. Per documentation, noted history of diabetes, hypertension, dementia, UTI, mood disorder, possibly depression, generalized weakness. The patient was seen with a signalman. The patient noting that he feels really frustrated and anxious about these hiccups. He wants the hiccups to stop. He attests to low mood because of the hiccups. The patient notes that his sleep has been bothered and his appetite is okay. Sometimes, he feels hopeless, sometimes he wants to . Currently, denying any thoughts of suicide right now. He states he does not want to right now. He wants to get better, but he is frustrated because the medical establishment, doctors, for example, have not been able to help him and are not addressing his hiccups. PAST PSYCHIATRIC HISTORY: He alludes to anxiety. FAMILY HISTORY: Noncontributory. SOCIAL HISTORY: The patient was born in [place]. States he lives in [facility]. States that he is not , but he is . His is in [facility]. Notes 6 kids, 3 boys and 3 girls, unclear involvement. The patient coming from a facility in [place]. MEDICATIONS: Noted including Lexapro. MENTAL STATUS EXAMINATION: Stated age. Fair eye contact. Speech within normal limits. Mood "upset." Affect constricted. Thought processes were engaged. No SI, no HI. No overt psychotic symptoms. PROVISIONAL DIAGNOSES: Major depression, single, unspecified; mood, unspecified; anxiety, unspecified. MEDICAL: Please see full H and P. RECOMMENDATIONS AND PLAN: An 78-year-old male. It seems that the major issue he is having is medical in nature, intractable hiccups, frustration due to medical problems, which seems to be driving worsening anxiety and depression. Continue dosing of Lexapro. No current suicidality. Attempt to address the hiccups which seem to be frustrating him the most. JOB# [id number]
[2018-12-18] MEDS ORDERED: Piperacillin/Tazobact 2.25 gm in 0.9% NS 50 ML IV SCH
--- NOTE | 2018-12-18 00:53 | Consultation ---
DATE OF CONSULTATION: 12/17/2018 INPATIENT GASTROINTESTINAL CONSULTATION REFERRING PHYSICIAN: Dr. Briscoe. REASON FOR CONSULTATION: Epigastric pain, nausea, vomiting. HISTORY OF PRESENT ILLNESS: An 78-year-old male who came to the hospital because of epigastric pain associated with nausea and vomiting, had an x-ray done. He feels very hungry at this point, would like to eat. Denies having any diarrhea, melena, hematochezia, hematemesis, or coffee ground emesis. PAST MEDICAL HISTORY: Diabetes, urinary tract infection. PAST SURGICAL HISTORY: None to abdomen recently. FAMILY HISTORY: Negative for colon cancer. SOCIAL HISTORY: Denies tobacco, alcohol or IV drug usage. ALLERGIES: None. CURRENT MEDICATIONS: Tylenol, [place], Colace, Lexapro, insulin, Zofran, Percocet, Protonix. REVIEW OF SYSTEMS: Ten point review of system was performed and pertinent positive was the epigastric pain, nausea, vomiting. All other systems were otherwise negative. PHYSICAL EXAMINATION: VITAL SIGNS: Temperature 97.3, breathing 18, pulse of 70, blood pressure 126/80, satting 100%. GENERAL: In no apparent distress. EYES: Anicteric. Normal conjunctivae. HEENT: Normocephalic, atraumatic. Moist mucous membranes. NECK: Soft, supple. CHEST: Clear. No effort. CARDIOVASCULAR: Regular rate and rhythm. ABDOMEN: Soft, nondistended, tender epigastrium. No rebound, no guarding. SKIN: Warm, dry. EXTREMITIES: Reveal no cyanosis. PSYCHOLOGIC: Alert and oriented x 3. LABORATORY DATA: Show BUN 21, creatinine 1.3. White count is 7.7, hemoglobin 12.1, platelets 274. INR is 0.97. X-ray of the abdomen, some lucency in the right noemi-abdomen. Cannot rule out free air. IMPRESSION: An 78-year-old male with epigastric pain, nausea, vomiting, cause could be from gastritis, peptic ulcer disease, gastroparesis, pancreatitis, gallstones, etc. The patient has not had any other imaging since the x-ray when he first arrived. I think a CT abdomen and pelvis would be reasonable start. Endoscopy was considered, but given his age, I would start with more conservative measures. Also, we checked his liver function tests and lipase to see if there is anything going on with a hepatobiliary system. PLAN: 1. CT abdomen and pelvis. 2. Check CMP, lipase, and CBC. 3. Continue Protonix. 4. If symptoms persist, may need additional workup, which could include ultrasound, gastric emptying study and/or endoscopy. Thank you for allowing me to participate. Please call me if any questions JOB# [id number]
[2018-12-18] MEDS: Hydrocodone/APAP 10 mg/325 mg Tab PO PRN ×3 (03:15→12:50)
[2018-12-18] MEDS: D5-0.45NS 1,000 ML IV SCH (03:17)
[2018-12-18] MEDS: INSULIN LISPRO SLIDING SCALE 100 UNITS/ML UNIT SUBQ SCH ×2 (06:35→16:14)
[2018-12-18] MEDS: Lactobacillus Rhamnosus GG 15 Billion CFU CAP.SPRINK PO SCH (08:28)
--- NOTE | 2018-12-18 09:10 | Diagnostic Imaging Report ---
Exam: CT examination abdomen pelvis. HISTORY: Diverticulitis. Total DLP equals 554 CTDI equals 11.3 FINDINGS: Multiple contiguous thin section of the abdomen pelvis obtained from lower thorax to pubic symphysis without the administration of oral contrast material. Intravenous contrast was no prior studies available comparison. The study demonstrates normal aeration of lung parenchyma the bases. Mild pleural thickening on the left side appreciated. The heart is prominent. Small hiatal hernia. The liver parenchyma and spleen are intact. Pancreas is normal. There is evidence for distended gallbladder with small collection of air as well as distention of common bile duct. There is evidence for pneumobilia. The findings suggestive of acute cholecystitis clinical correlation recommended Pancreas is normal. There is no evidence of obstructive uropathy nephrolithiasis. The kidneys concentrate and excrete contrast material normal fashion. No free fluid is noted. There is no evidence for diverticular disease of diverticulitis. Intraluminal defect urinary bladder suggestive of large prostate mass, invasion the ureter bladder cannot be excluded, clinical correlation recommended. Daugherty catheter is noted. Fecal impaction the rectum. Bony structures demonstrate no evidence for lytic or blastic changes. IMPRESSION: Pneumobilia, air collection in the gallbladder with extensive distention of the common bile duct suggestive of acute cholecystitis. There is no evidence of pericholecystic fluid collection. Clinical correlation and HIDA scan might be helpful. . Significant enlargement of prostate gland with inhomogeneous architecture, clinical correlation recommended. The prostate gland compresses urinary bladder. Whether there is intraluminal indentation of the urinary bladder wall is not clear. No evidence for diverticulitis. Fecal impaction the rectum.
--- NOTE | 2018-12-18 12:02 | Internal Medicine Prog Note ---
Internal Medicine Subjective - Subjective Service Date: 12/18/18 Patient is:: awake, verbal, in bed Patient Complaints of:: vomitting Per staff patient has:: no episodes of fall, tolerating meds Internal Medicine Objective - Results Result Diagrams: 12/17/18 15:15 12/17/18 15:15 Recent Labs: Laboratory Last Values WBC 7.5 Th/cmm (4.8-10.8) 12/17/18 15:15 RBC 4.00 Mil/cmm (3.80-5.80) 12/17/18 15:15 Hgb 11.5 gm/dL (12-16) L 12/17/18 15:15 Hct 34.2 % (41.0-60) L 12/17/18 15:15 MCV 85.4 fl (80-99) 12/17/18 15:15 MCH 28.8 pg (27.0-31.0) 12/17/18 15:15 MCHC Differential 33.7 pg (28.0-36.0) 12/17/18 15:15 RDW 13.0 % (11.5-20.0) 12/17/18 15:15 Plt Count 291 Th/cmm (150-400) 12/17/18 15:15 MPV 8.0 fl 12/17/18 15:15 Neutrophils % 65.3 % (40.0-80.0) 12/17/18 15:15 Lymphocytes % 23.9 % (20.0-50.0) 12/17/18 15:15 Monocytes % 5.3 % (2.0-10.0) 12/17/18 15:15 Eosinophils % 4.7 % (0.0-5.0) 12/17/18 15:15 Basophils % 0.8 % (0.0-2.0) 12/17/18 15:15 PT 10.1 SECONDS (9.5-11.5) 12/14/18 20:15 INR 0.97 (0.5-1.4) 12/14/18 20:15 PTT (Actin FS) 31.1 SECONDS (26.0-38.0) 12/14/18 20:15 Sodium 133 mEq/L (136-145) L 12/17/18 15:15 Potassium 4.6 mEq/L (3.5-5.1) 12/17/18 15:15 Chloride 102 mEq/L (98-107) 12/17/18 15:15 Carbon Dioxide 26.6 mEq/L (21.0-31.0) 12/17/18 15:15 Anion Gap 9.0 (7.0-16.0) 12/17/18 15:15 BUN 22 mg/dL (7-25) 12/17/18 15:15 Creatinine 1.3 mg/dL (0.7-1.3) 12/17/18 15:15 Est GFR ( Amer) TNP 12/17/18 15:15 Est GFR (Non-Af Amer) TNP 12/17/18 15:15 BUN/Creatinine Ratio 16.9 12/17/18 15:15 Glucose 189 mg/dL (70-105) H 12/17/18 15:15 POC Glucose 147 MG/DL (70 - 105) H 12/18/18 05:45 Calcium 8.5 mg/dL (8.6-10.3) L 12/17/18 15:15 Magnesium 2.3 mg/dL (1.9-2.7) 12/14/18 20:15 Total Bilirubin 0.2 mg/dL (0.3-1.0) L 12/17/18 15:15 AST 14 U/L (13-39) 12/17/18 15:15 ALT 20 U/L (7-52) 12/17/18 15:15 Alkaline Phosphatase 61 U/L (34-104) 12/17/18 15:15 B-Natriuretic Peptide 59.2 pg/mL (5.0-100.0) 12/14/18 20:15 Total Protein 5.9 gm/dL (6.0-8.3) L 12/17/18 15:15 Albumin 3.1 gm/dL (4.2-5.5) L 12/17/18 15:15 Globulin 2.8 gm/dL 12/17/18 15:15 Albumin/Globulin Ratio 1.1 (1.0-1.8) 12/17/18 15:15 Triglycerides 170 mg/dL (<150) H 12/14/18 20:15 Cholesterol 132 mg/dL (<200) 12/14/18 20:15 LDL Cholesterol Direct 87 mg/dL (75-193) 12/14/18 20:15 HDL Cholesterol 31 mg/dL (23-92) 12/14/18 20:15 Lipase 27 U/L (11-82) 12/17/18 15:15 Prostate Specific Ag 33.4 ng/mL (0.0-4.0) H 12/14/18 20:20 Urine Source [place] 12/14/18 20:20 Urine Color YELLOW 12/14/18 20:20 Urine Clarity TURBID (CLEAR) 12/14/18 20:20 Urine pH 6.0 (4.6 - 8.0) 12/14/18 20:20 Ur Specific [place] 1.010 (1.005-1.030) 12/14/18 20:20 Urine Protein 30 mg/dL (NEGATIVE) H 12/14/18 20:20 Urine Glucose (UA) 500 mg/dL (NEGATIVE) H 12/14/18 20:20 Urine Ketones NEGATIVE mg/dL (NEGATIVE) 12/14/18 20:20 Urine Blood LARGE (NEGATIVE) H 12/14/18 20:20 Urine Nitrate NEGATIVE (NEGATIVE) 12/14/18 20:20 Urine Bilirubin NEGATIVE (NEGATIVE) 12/14/18 20:20 Urine Urobilinogen 0.2 E.U./dL (0.2 - 1.0) 12/14/18 20:20 Ur Leukocyte Esterase MODERATE (NEGATIVE) H 12/14/18 20:20 Urine RBC 10-25 /hpf (0-5) H 12/14/18 20:20 Urine WBC 6-10 /hpf (0-5) 12/14/18 20:20 Ur Epithelial Cells OCCASIONAL /lpf (FEW) 12/14/18 20:20 Urine Bacteria MODERATE /hpf (NONE SEEN) H 12/14/18 20:20 H. pylori IgA Antibody <9.0 units (0.0-8.9) 12/14/18 20:15 - Physical Exam Vitals and I&O: Vital Signs Temp 97.9 F 12/18/18 08:00 Pulse 60 12/18/18 08:00 Resp 18 12/18/18 08:00 BP 93/65 12/18/18 08:00 Pulse Ox 98 12/18/18 08:00 Intake & Output 09/04/19 09/05/19 09/05/19 18:59 06:59 18:59 Intake Total 1802.5 1200 Output Total 1600 800 Balance 202.5 400 Weight (lbs) 188 lb 188 lb Intake: Intake, IV Amount 1062.5 1200 D5-0.45NS 1,000 ml @ 50 962.5 1000 mls/hr IV .Q20H [facility] Rx#: [id number] Piperacillin Sodium/ 100 200 Tazobact 4.5 gm In Sodium Chloride 0.9% 100 ml @ 100 mls/hr IV Q8HR [facility] Rx #:[id number] Oral 740 Output: Urine 1600 800 Other: # Bowel Movements 0 1 Weight Source Bedscale Bedscale Active Medications: Current Medications Acetaminophen (Tylenol) 650 mg PO Q6HR PRN PRN Reason: Pain or Fever >101 Stop: 02/14/19 17:41 Acetaminophen/Hydrocodone Bitart ([place] 10 Mg/325 Mg) 1 tab PO Q4H PRN PRN Reason: Pain (Severe) Stop: 02/14/19 17:41 Last Admin: 12/18/18 08:28 Dose: 1 tab Docusate Sodium (Colace) 100 mg PO BID [facility] Stop: 02/15/19 08:59 Last Admin: 12/18/18 08:28 Dose: 100 mg Escitalopram Oxalate (Lexapro) 10 mg PO DAILY [facility]; Protocol Stop: 02/15/19 08:59 Last Admin: 12/18/18 08:28 Dose: 10 mg Dextrose/Sodium Chloride (D5-0.45ns) 1,000 mls @ 50 mls/hr IV .Q20H [facility] Stop: 02/13/19 16:05 Last Admin: 12/18/18 03:17 Dose: 50 mls/hr Piperacillin Sod/Tazobactam (Sod 4.5 gm/ Sodium Chloride) 100 mls @ 100 mls/hr IV Q8HR [facility] Stop: 02/15/19 15:59 Last Infusion: 12/18/18 05:43 Dose: Infused Insulin Human Lispro (Humalog Insulin Sliding Scale) 0 units SUBQ BIDAC [facility]; Protocol Stop: 02/14/19 07:29 Last Admin: 12/18/18 06:35 Dose: Not Given Lactobacillus Rhamnosus (Culturelle 15b) 1 each PO DAILY [facility] Stop: 02/15/19 08:59 Last Admin: 12/18/18 08:28 Dose: 1 each Miscellaneous (Zosyn Iv Per Pharmacy) 1 ea MC PRN PRN PRN Reason: PROTOCOL Stop: 02/15/19 15:33 Ondansetron HCl (Zofran) 4 mg IV Q6H PRN PRN Reason: Nausea / Vomiting Stop: 02/15/19 11:55 Last Admin: 12/18/18 10:47 Dose: 4 mg Oxycodone/Acetaminophen (Percocet 5/325mg Oral Tab) 1 tab PO Q6H PRN PRN Reason: Abdominal Pain Stop: 02/13/19 14:45 Last Admin: 12/15/18 19:56 Dose: 1 tab Pantoprazole Sodium (Protonix) 40 mg IVP QDAC [facility] Stop: 02/15/19 07:29 Last Admin: 12/18/18 08:27 Dose: 40 mg General: weak, alert HEENT: NC/AT, PERRLA Neck: Supple Lungs: CTAB Cardiovascular: RRR, Normal S1, Normal S2, without murmur Abdomen: soft, tender, non-distended, positive bowel sound Extremities: excoriation Neurological: alert Internal Medicine Assmt/Plan - Assessment Assessment: Acute cholecystitis R/o Cancer. Gastritis. Gerd. Diabetes. Hypertension. Dementia. UTI.complicated Depression. Insomnia. Generalized weakness. Atelectasis. back pain - Plan Plan: ?hida scan , appreciate gi reccomendations am labs ppi continue current plan of care . Nutritional Asmnt/Malnutr-PDOC - Dietary Evaluation Malnutrition Findings (Please click <Entered> for more info): Nutritional Asmnt/Malnutrition Start: 12/16/18 13: 59 Text: Status: Complete Freq: Protocol: Document 12/16/18 13:59 FRANSISCO (Rec: 12/16/18 14:02 FRANSISCO [id number]) Nutritional Asmnt/Malnutrition Patient General Information Nutritional Screening Moderate Risk Consult Diagnosis Abdominal Pain Pertinent Medical Hx/Surgical Hx DM, GERD, Dementia, HTN, Arthritis Subjective Information Consult: GERD, DM, Abdominal Pain Pt is a 78-year-old male admitted on 12/14 from halfway c/o abdominal pain, nausea, and GERD. Pt only speaks/understands Qatari. Pt was NPO 12/15 at Breakfast and Lunch, ate 75% dinner. Although Pt was not feeling well, he ate 100% breakfast this morning. Visited Pt after lunch, Pt was asleep. Pt had a bucket next to him with vomit, RN stated Pt was not feeling great, Pt stated a 10/ 10 stomach pain on 12/15 per Nurse note. Pt is waiting on a GI consult. Will continue to monitor glucose labs, vomiting , and PO intake. Will try to provide nutrition education at another time when Pt is awake and feeling better. HT: 56 WT: 188 LB (85.45 kg) ABW: 154 LB (69.78 kg) BMI: 30.34 (Obese) GI: Abdominal Pain, Large, Round, Bowel sounds normal BM: 12/16 x1 I/O: 1000/3275 (-2275) Skin: WNL, Warm, Dry, Intact Devang: 13 Diet Order: Mechanical Soft, LISY Estimated Energy Needs: ( Geriatric, ABW) 0026-0760 kcals (25-30 kcals/ kg) 70-84Pro (1.0-1.2 g/kg) 2956-2359 ml (25-30 ml/kg) Current Diet Order/ Nutrition Support Mechanical Soft, LISY Pertinent Medications D5-0.45ns, INS-SS, Protonix Pertinent Labs 12/15: Hgb/Hct 12.1/35.7, Ca 8.4 , Glucose 170 POC Glucose (last 24 hours): 161, 187 12/14: T Bili 0.1, AST 10, Alb 3 .3 Nutritional Hx/Data Height 5 ft 6 in Height (Calculated Centimeters) 167.6 Current Weight (lbs) 188 lb Weight (Calculated Kilograms) 85.3 Weight (Calculated Grams) 53375.4 Premium Body Weight 142 LB (64.55 kg) % Premium Body Weight 132 Body Mass Index (BMI) 30.3 Weight Status Obese GI Symptoms GI Symptoms Vomitting Last BM 12/16 x1 Skin Integrity/Comment: Skin: WNL, Warm, Dry, Intact Devang: 13 Current %PO Good (75-100%) Estimated Nutritional Goals BEE in Kcals: Adj wt of IBW Calories/Kcals/Kg 25-30 Kcals Calculated 8644-3138 Protein: Adj wt of IBW Protein g/k.0-1.2 Protein Calculated 70-84 Fluid: ml 2306-7341 ml (25-30 ml/kg) Nutritional Problem 1. Problem Problem Altered nutrition related labs Etiology r/t endocrine dysfunction Signs/Symptoms: aeb Glucose 170, POC Glucose ( last 24 hours): 161, 187. Malnutrition Related to Morbid Obesity Malnutrition related to morbid obesity No Intervention/Recommendation Comments 1. Continue with Mechanical Soft, LISY diet as ordered. 2. Consider adding CCHO to diet Rx to support glucose control. 3. Continue antihyperglycemic medications for glucose control per MD order. Expected Outcomes/Goals Expected Outcomes/Goals 1. PO intake to meet 75% of nutritional needs. 2. Monitor PO intake, wt, skin integrity, and nutrition related labs to trend WNL. 3. F/U as moderate risk in 3-5 days, 12/19-12/21
--- NOTE | 2018-12-18 14:48 | GI Progress Note ---
Subjective - Review of Systems Subjective: FEELING BETTER GI OBJECTIVE - Results Result Diagrams: 12/17/18 15:15 12/17/18 15:15 Recent Labs: Laboratory Last Values WBC 7.5 Th/cmm (4.8-10.8) 12/17/18 15:15 RBC 4.00 Mil/cmm (3.80-5.80) 12/17/18 15:15 Hgb 11.5 gm/dL (12-16) L 12/17/18 15:15 Hct 34.2 % (41.0-60) L 12/17/18 15:15 MCV 85.4 fl (80-99) 12/17/18 15:15 MCH 28.8 pg (27.0-31.0) 12/17/18 15:15 MCHC Differential 33.7 pg (28.0-36.0) 12/17/18 15:15 RDW 13.0 % (11.5-20.0) 12/17/18 15:15 Plt Count 291 Th/cmm (150-400) 12/17/18 15:15 MPV 8.0 fl 12/17/18 15:15 Neutrophils % 65.3 % (40.0-80.0) 12/17/18 15:15 Lymphocytes % 23.9 % (20.0-50.0) 12/17/18 15:15 Monocytes % 5.3 % (2.0-10.0) 12/17/18 15:15 Eosinophils % 4.7 % (0.0-5.0) 12/17/18 15:15 Basophils % 0.8 % (0.0-2.0) 12/17/18 15:15 PT 10.1 SECONDS (9.5-11.5) 12/14/18 20:15 INR 0.97 (0.5-1.4) 12/14/18 20:15 PTT (Actin FS) 31.1 SECONDS (26.0-38.0) 12/14/18 20:15 Sodium 133 mEq/L (136-145) L 12/17/18 15:15 Potassium 4.6 mEq/L (3.5-5.1) 12/17/18 15:15 Chloride 102 mEq/L (98-107) 12/17/18 15:15 Carbon Dioxide 26.6 mEq/L (21.0-31.0) 12/17/18 15:15 Anion Gap 9.0 (7.0-16.0) 12/17/18 15:15 BUN 22 mg/dL (7-25) 12/17/18 15:15 Creatinine 1.3 mg/dL (0.7-1.3) 12/17/18 15:15 Est GFR ( Amer) TNP 12/17/18 15:15 Est GFR (Non-Af Amer) TNP 12/17/18 15:15 BUN/Creatinine Ratio 16.9 12/17/18 15:15 Glucose 189 mg/dL (70-105) H 12/17/18 15:15 POC Glucose 147 MG/DL (70 - 105) H 12/18/18 05:45 Calcium 8.5 mg/dL (8.6-10.3) L 12/17/18 15:15 Magnesium 2.3 mg/dL (1.9-2.7) 12/14/18 20:15 Total Bilirubin 0.2 mg/dL (0.3-1.0) L 12/17/18 15:15 AST 14 U/L (13-39) 12/17/18 15:15 ALT 20 U/L (7-52) 12/17/18 15:15 Alkaline Phosphatase 61 U/L (34-104) 12/17/18 15:15 B-Natriuretic Peptide 59.2 pg/mL (5.0-100.0) 12/14/18 20:15 Total Protein 5.9 gm/dL (6.0-8.3) L 12/17/18 15:15 Albumin 3.1 gm/dL (4.2-5.5) L 12/17/18 15:15 Globulin 2.8 gm/dL 12/17/18 15:15 Albumin/Globulin Ratio 1.1 (1.0-1.8) 12/17/18 15:15 Triglycerides 170 mg/dL (<150) H 12/14/18 20:15 Cholesterol 132 mg/dL (<200) 12/14/18 20:15 LDL Cholesterol Direct 87 mg/dL (75-193) 12/14/18 20:15 HDL Cholesterol 31 mg/dL (23-92) 12/14/18 20:15 Lipase 27 U/L (11-82) 12/17/18 15:15 Prostate Specific Ag 33.4 ng/mL (0.0-4.0) H 12/14/18 20:20 Urine Source [place] 12/14/18 20:20 Urine Color YELLOW 12/14/18 20:20 Urine Clarity TURBID (CLEAR) 12/14/18 20:20 Urine pH 6.0 (4.6 - 8.0) 12/14/18 20:20 Ur Specific [place] 1.010 (1.005-1.030) 12/14/18 20:20 Urine Protein 30 mg/dL (NEGATIVE) H 12/14/18 20:20 Urine Glucose (UA) 500 mg/dL (NEGATIVE) H 12/14/18 20:20 Urine Ketones NEGATIVE mg/dL (NEGATIVE) 12/14/18 20:20 Urine Blood LARGE (NEGATIVE) H 12/14/18 20:20 Urine Nitrate NEGATIVE (NEGATIVE) 12/14/18 20:20 Urine Bilirubin NEGATIVE (NEGATIVE) 12/14/18 20:20 Urine Urobilinogen 0.2 E.U./dL (0.2 - 1.0) 12/14/18 20:20 Ur Leukocyte Esterase MODERATE (NEGATIVE) H 12/14/18 20:20 Urine RBC 10-25 /hpf (0-5) H 12/14/18 20:20 Urine WBC 6-10 /hpf (0-5) 12/14/18 20:20 Ur Epithelial Cells OCCASIONAL /lpf (FEW) 12/14/18 20:20 Urine Bacteria MODERATE /hpf (NONE SEEN) H 12/14/18 20:20 H. pylori IgA Antibody <9.0 units (0.0-8.9) 12/14/18 20:15 - Physical Exam Vitals and I&O: Vital Signs Temp 97.5 F 12/18/18 12:37 Pulse 77 12/18/18 12:37 Resp 18 12/18/18 12:37 BP 113/66 12/18/18 12:37 Pulse Ox 96 12/18/18 12:37 Intake & Output 12/17/18 12/18/18 12/18/18 18:59 06:59 18:59 Intake Total 1802.5 1200 Output Total 1600 800 Balance 202.5 400 Weight (lbs) 85.275 kg 85.275 kg Intake: Intake, IV Amount 1062.5 1200 D5-0.45NS 1,000 ml @ 50 962.5 1000 mls/hr IV .Q20H [facility] Rx#: [id number] Piperacillin Sodium/ 100 200 Tazobact 4.5 gm In Sodium Chloride 0.9% 100 ml @ 100 mls/hr IV Q8HR [facility] Rx #:[id number] Oral 740 Output: Urine 1600 800 Other: # Bowel Movements 0 1 Weight Source Bedscale Bedscale Active Medications: Current Medications Acetaminophen (Tylenol) 650 mg PO Q6HR PRN PRN Reason: Pain or Fever >101 Stop: 02/14/19 17:41 Acetaminophen/Hydrocodone Bitart ([place] 10 Mg/325 Mg) 1 tab PO Q4H PRN PRN Reason: Pain (Severe) Stop: 02/14/19 17:41 Last Admin: 12/18/18 12:50 Dose: 1 tab Docusate Sodium (Colace) 100 mg PO BID [facility] Stop: 02/15/19 08:59 Last Admin: 12/18/18 08:28 Dose: 100 mg Escitalopram Oxalate (Lexapro) 10 mg PO DAILY [facility]; Protocol Stop: 02/15/19 08:59 Last Admin: 12/18/18 08:28 Dose: 10 mg Dextrose/Sodium Chloride (D5-0.45ns) 1,000 mls @ 50 mls/hr IV .Q20H [facility] Stop: 02/13/19 16:05 Last Admin: 12/18/18 03:17 Dose: 50 mls/hr Piperacillin Sod/Tazobactam (Sod 4.5 gm/ Sodium Chloride) 100 mls @ 100 mls/hr IV Q8HR [facility] Stop: 02/15/19 15:59 Last Admin: 12/18/18 12:12 Dose: 100 mls/hr Insulin Human Lispro (Humalog Insulin Sliding Scale) 0 units SUBQ BIDAC [facility]; Protocol Stop: 02/14/19 07:29 Last Admin: 12/18/18 06:35 Dose: Not Given Lactobacillus Rhamnosus (Culturelle 15b) 1 each PO DAILY [facility] Stop: 02/15/19 08:59 Last Admin: 12/18/18 08:28 Dose: 1 each Miscellaneous (Zosyn Iv Per Pharmacy) 1 ea PRN PRN PRN Reason: PROTOCOL Stop: 02/15/19 15:33 Ondansetron HCl (Zofran) 4 mg IV Q6H PRN PRN Reason: Nausea / Vomiting Stop: 02/15/19 11:55 Last Admin: 12/18/18 10:47 Dose: 4 mg Oxycodone/Acetaminophen (Percocet 5/325mg Oral Tab) 1 tab PO Q6H PRN PRN Reason: Abdominal Pain Stop: 02/13/19 14:45 Last Admin: 12/15/18 19:56 Dose: 1 tab Pantoprazole Sodium (Protonix) 40 mg IVP QDAC [facility]ON[facility] Stop: 02/15/19 07:29 Last Admin: 12/18/18 08:27 Dose: 40 mg Abdomen: Tender (RUQ) Assessment/Plan - Assessment Assessment: 78 MALE WITH RUQ PAIN CT SUGGEST CHOLESYSTITIS LFTS AND LIPASE ARE NORMAL 1.D/W DR DE JESUS 2.SURGERY INPUT 3.CHECK HIDA
--- NOTE | 2018-12-18 17:05 | Infectious Disease Prog Note ---
Infectious Disease Subjective - Review of Systems Service Date: 12/18/18 Subjective: cc uti/diverticuklitis hpi- seen by gi ros no fevr o.e vs chest claer abd soft ext puilse Vital Signs - 24 hr 12/17/18 12/17/18 12/17/18 19:00 20:00 23:00 Temp 97.4 F 97.0 F HR 60 80 RR 20 18 20 BP 114/82 114/73 O2 Sat % 100 12/18/18 12/18/18 12/18/18 03:00 08:00 12:37 Temp 97.7 F 97.9 F 97.5 F HR 92 60 77 RR 18 18 18 BP 102/79 93/65 113/66 O2 Sat % 95 98 96 12/18/18 16:00 Temp 98.0 F HR 66 RR 18 BP 110/71 O2 Sat % 97 Microbiology 12/14/18 20:30 Blood - Preliminary 12/14/18 20:15 Blood - Preliminary 12/14/18 20:20 Urine Urine Culture - Final 12/14/18 20:05 Nares - Final NO MRSA ISOLATED Laboratory Results - last 24 hr 12/14/18 12/17/18 12/18/18 20:15 15:15 05:45 Sodium 133 L Potassium 4.6 Chloride 102 Carbon Dioxide 26.6 Anion Gap 9.0 BUN 22 Creatinine 1.3 Est GFR ( Amer) TNP Est GFR (Non-Af Amer) TNP BUN/Creatinine Ratio 16.9 Glucose 189 H POC Glucose 147 H Calcium 8.5 L Total Bilirubin 0.2 L AST 14 ALT 20 Alkaline Phosphatase 61 Total Protein 5.9 L Albumin 3.1 L Globulin 2.8 Albumin/Globulin Ratio 1.1 Lipase 27 H. pylori IgA Antibody <9.0 12/18/18 16:09 Sodium Potassium Chloride Carbon Dioxide Anion Gap BUN Creatinine Est GFR ( Amer) Est GFR (Non-Af Amer) BUN/Creatinine Ratio Glucose POC Glucose 213 H Calcium Total Bilirubin AST ALT Alkaline Phosphatase Total Protein Albumin Globulin Albumin/Globulin Ratio Lipase H. pylori IgA Antibody Diagnoses TYPE 2 DIABETES MELLITUS WITHOUT COMPLICATIONS (12/14/18) UNSPECIFIED DEMENTIA WITHOUT BEHAVIORAL DISTURBANCE (12/14/18) ATELECTASIS (12/14/18) GASTRO-ESOPHAGEAL REFLUX DISEASE WITHOUT ESOPHAGITIS (12/14/18) UNSPECIFIED OSTEOARTHRITIS, UNSPECIFIED SITE (12/14/18) URINARY TRACT INFECTION, SITE NOT SPECIFIED (12/14/18) EPIGASTRIC PAIN (12/14/18) WEAKNESS (12/14/18) Current Medications Acetaminophen (Tylenol) 650 mg PO Q6HR PRN PRN Reason: Pain or Fever >101 Stop: 02/14/19 17:41 Acetaminophen/Hydrocodone Bitart ([place] 10 Mg/325 Mg) 1 tab PO Q4H PRN PRN Reason: Pain (Severe) Stop: 02/14/19 17:41 Last Admin: 12/18/18 12:50 Dose: 1 tab Docusate Sodium (Colace) 100 mg PO BID [facility] Stop: 02/15/19 08:59 Last Admin: 12/18/18 16:13 Dose: Not Given Escitalopram Oxalate (Lexapro) 10 mg PO DAILY [facility]; Protocol Stop: 02/15/19 08:59 Last Admin: 12/18/18 08:28 Dose: 10 mg Dextrose/Sodium Chloride (D5-0.45ns) 1,000 mls @ 50 mls/hr IV .Q20H [facility] Stop: 02/13/19 16:05 Last Admin: 12/18/18 03:17 Dose: 50 mls/hr Piperacillin Sod/Tazobactam (Sod 4.5 gm/ Sodium Chloride) 100 mls @ 100 mls/hr IV Q8HR [facility] Stop: 02/15/19 15:59 Last Admin: 12/18/18 12:12 Dose: 100 mls/hr Insulin Human Lispro (Humalog Insulin Sliding Scale) 0 units SUBQ BIDAC [facility]; Protocol Stop: 02/14/19 07:29 Last Admin: 12/18/18 16:14 Dose: 4 units Lactobacillus Rhamnosus (Culturelle 15b) 1 each PO DAILY [facility] Stop: 02/15/19 08:59 Last Admin: 12/18/18 08:28 Dose: 1 each Miscellaneous (Zosyn Iv Per Pharmacy) 1 ea MC PRN PRN PRN Reason: PROTOCOL Stop: 02/15/19 15:33 Ondansetron HCl (Zofran) 4 mg IV Q6H PRN PRN Reason: Nausea / Vomiting Stop: 02/15/19 11:55 Last Admin: 12/18/18 10:47 Dose: 4 mg Oxycodone/Acetaminophen (Percocet 5/325mg Oral Tab) 1 tab PO Q6H PRN PRN Reason: Abdominal Pain Stop: 02/13/19 14:45 Last Admin: 12/15/18 19:56 Dose: 1 tab Pantoprazole Sodium (Protonix) 40 mg IVP QDAC [facility] Stop: 02/15/19 07:29 Last Admin: 12/18/18 08:27 Dose: 40 mg Infectious Disease Objective - Results Result Diagrams: 12/17/18 15:15 12/17/18 15:15 Recent Labs: Laboratory Last Values WBC 7.5 Th/cmm (4.8-10.8) 12/17/18 15:15 RBC 4.00 Mil/cmm (3.80-5.80) 12/17/18 15:15 Hgb 11.5 gm/dL (12-16) L 12/17/18 15:15 Hct 34.2 % (41.0-60) L 12/17/18 15:15 MCV 85.4 fl (80-99) 12/17/18 15:15 MCH 28.8 pg (27.0-31.0) 12/17/18 15:15 MCHC Differential 33.7 pg (28.0-36.0) 12/17/18 15:15 RDW 13.0 % (11.5-20.0) 12/17/18 15:15 Plt Count 291 Th/cmm (150-400) 12/17/18 15:15 MPV 8.0 fl 12/17/18 15:15 Neutrophils % 65.3 % (40.0-80.0) 12/17/18 15:15 Lymphocytes % 23.9 % (20.0-50.0) 12/17/18 15:15 Monocytes % 5.3 % (2.0-10.0) 12/17/18 15:15 Eosinophils % 4.7 % (0.0-5.0) 12/17/18 15:15 Basophils % 0.8 % (0.0-2.0) 12/17/18 15:15 PT 10.1 SECONDS (9.5-11.5) 12/14/18 20:15 INR 0.97 (0.5-1.4) 12/14/18 20:15 PTT (Actin FS) 31.1 SECONDS (26.0-38.0) 12/14/18 20:15 Sodium 133 mEq/L (136-145) L 12/17/18 15:15 Potassium 4.6 mEq/L (3.5-5.1) 12/17/18 15:15 Chloride 102 mEq/L (98-107) 12/17/18 15:15 Carbon Dioxide 26.6 mEq/L (21.0-31.0) 12/17/18 15:15 Anion Gap 9.0 (7.0-16.0) 12/17/18 15:15 BUN 22 mg/dL (7-25) 12/17/18 15:15 Creatinine 1.3 mg/dL (0.7-1.3) 12/17/18 15:15 Est GFR ( Amer) TNP 12/17/18 15:15 Est GFR (Non-Af Amer) TNP 12/17/18 15:15 BUN/Creatinine Ratio 16.9 12/17/18 15:15 Glucose 189 mg/dL (70-105) H 12/17/18 15:15 POC Glucose 213 MG/DL (70 - 105) H 12/18/18 16:09 Calcium 8.5 mg/dL (8.6-10.3) L 12/17/18 15:15 Magnesium 2.3 mg/dL (1.9-2.7) 12/14/18 20:15 Total Bilirubin 0.2 mg/dL (0.3-1.0) L 12/17/18 15:15 AST 14 U/L (13-39) 12/17/18 15:15 ALT 20 U/L (7-52) 12/17/18 15:15 Alkaline Phosphatase 61 U/L (34-104) 12/17/18 15:15 B-Natriuretic Peptide 59.2 pg/mL (5.0-100.0) 12/14/18 20:15 Total Protein 5.9 gm/dL (6.0-8.3) L 12/17/18 15:15 Albumin 3.1 gm/dL (4.2-5.5) L 12/17/18 15:15 Globulin 2.8 gm/dL 12/17/18 15:15 Albumin/Globulin Ratio 1.1 (1.0-1.8) 12/17/18 15:15 Triglycerides 170 mg/dL (<150) H 12/14/18 20:15 Cholesterol 132 mg/dL (<200) 12/14/18 20:15 LDL Cholesterol Direct 87 mg/dL (75-193) 12/14/18 20:15 HDL Cholesterol 31 mg/dL (23-92) 12/14/18 20:15 Lipase 27 U/L (11-82) 12/17/18 15:15 Prostate Specific Ag 33.4 ng/mL (0.0-4.0) H 12/14/18 20:20 Urine Source [place] 12/14/18 20:20 Urine Color YELLOW 12/14/18 20:20 Urine Clarity TURBID (CLEAR) 12/14/18 20:20 Urine pH 6.0 (4.6 - 8.0) 12/14/18 20:20 Ur Specific [place] 1.010 (1.005-1.030) 12/14/18 20:20 Urine Protein 30 mg/dL (NEGATIVE) H 12/14/18 20:20 Urine Glucose (UA) 500 mg/dL (NEGATIVE) H 12/14/18 20:20 Urine Ketones NEGATIVE mg/dL (NEGATIVE) 12/14/18 20:20 Urine Blood LARGE (NEGATIVE) H 12/14/18 20:20 Urine Nitrate NEGATIVE (NEGATIVE) 12/14/18 20:20 Urine Bilirubin NEGATIVE (NEGATIVE) 12/14/18 20:20 Urine Urobilinogen 0.2 E.U./dL (0.2 - 1.0) 12/14/18 20:20 Ur Leukocyte Esterase MODERATE (NEGATIVE) H 12/14/18 20:20 Urine RBC 10-25 /hpf (0-5) H 12/14/18 20:20 Urine WBC 6-10 /hpf (0-5) 12/14/18 20:20 Ur Epithelial Cells OCCASIONAL /lpf (FEW) 12/14/18 20:20 Urine Bacteria MODERATE /hpf (NONE SEEN) H 12/14/18 20:20 H. pylori IgA Antibody <9.0 units (0.0-8.9) 12/14/18 20:15 - Physical Exam Vitals and I&O: Vital Signs Temp 98.0 F 12/18/18 16:00 Pulse 66 12/18/18 16:00 Resp 18 12/18/18 16:00 BP 110/71 12/18/18 16:00 Pulse Ox 97 12/18/18 16:00 Intake & Output 12/17/18 12/18/18 12/18/18 18:59 06:59 18:59 Intake Total 1802.5 1200 Output Total 1600 800 Balance 202.5 400 Weight (lbs) 85.275 kg 85.275 kg Intake: Intake, IV Amount 1062.5 1200 D5-0.45NS 1,000 ml @ 50 962.5 1000 mls/hr IV .Q20H [facility] Rx#: [id number] Piperacillin Sodium/ 100 200 Tazobact 4.5 gm In Sodium Chloride 0.9% 100 ml @ 100 mls/hr IV Q8HR [facility] Rx #:[id number] Oral 740 Output: Urine 1600 800 Other: # Bowel Movements 0 1 Weight Source Bedscale Bedscale Active Medications: Current Medications Acetaminophen (Tylenol) 650 mg PO Q6HR PRN PRN Reason: Pain or Fever >101 Stop: 02/14/19 17:41 Acetaminophen/Hydrocodone Bitart ([place] 10 Mg/325 Mg) 1 tab PO Q4H PRN PRN Reason: Pain (Severe) Stop: 02/14/19 17:41 Last Admin: 12/18/18 12:50 Dose: 1 tab Docusate Sodium (Colace) 100 mg PO BID [facility] Stop: 02/15/19 08:59 Last Admin: 12/18/18 16:13 Dose: Not Given Escitalopram Oxalate (Lexapro) 10 mg PO DAILY [facility]; Protocol Stop: 02/15/19 08:59 Last Admin: 12/18/18 08:28 Dose: 10 mg Dextrose/Sodium Chloride (D5-0.45ns) 1,000 mls @ 50 mls/hr IV .Q20H [facility] Stop: 02/13/19 16:05 Last Admin: 12/18/18 03:17 Dose: 50 mls/hr Piperacillin Sod/Tazobactam (Sod 4.5 gm/ Sodium Chloride) 100 mls @ 100 mls/hr IV Q8HR [facility] Stop: 02/15/19 15:59 Last Admin: 12/18/18 12:12 Dose: 100 mls/hr Insulin Human Lispro (Humalog Insulin Sliding Scale) 0 units SUBQ BIDAC [facility]; Protocol Stop: 02/14/19 07:29 Last Admin: 12/18/18 16:14 Dose: 4 units Lactobacillus Rhamnosus (Culturelle 15b) 1 each PO DAILY [facility] Stop: 02/15/19 08:59 Last Admin: 12/18/18 08:28 Dose: 1 each Miscellaneous (Zosyn Iv Per Pharmacy) 1 ea MC PRN PRN PRN Reason: PROTOCOL Stop: 02/15/19 15:33 Ondansetron HCl (Zofran) 4 mg IV Q6H PRN PRN Reason: Nausea / Vomiting Stop: 02/15/19 11:55 Last Admin: 12/18/18 10:47 Dose: 4 mg Oxycodone/Acetaminophen (Percocet 5/325mg Oral Tab) 1 tab PO Q6H PRN PRN Reason: Abdominal Pain Stop: 02/13/19 14:45 Last Admin: 12/15/18 19:56 Dose: 1 tab Pantoprazole Sodium (Protonix) 40 mg IVP QDAC [facility] Stop: 02/15/19 07:29 Last Admin: 12/18/18 08:27 Dose: 40 mg Nutritional Asmnt/Malnutr-PDOC - Dietary Evaluation Malnutrition Findings (Please click <Entered> for more info): Nutritional Asmnt/Malnutrition Start: 12/16/18 13: 59 Text: Status: Complete Freq: Protocol: Document 12/16/18 13:59 FRANSISCO (Rec: 12/16/18 14:02 [email or web address] [email or web address]) Nutritional Asmnt/Malnutrition Patient General Information Nutritional Screening Moderate Risk Consult Diagnosis Abdominal Pain Pertinent Medical Hx/Surgical Hx DM, GERD, Dementia, HTN, Arthritis Subjective Information Consult: GERD, DM, Abdominal Pain Pt is a 78-year-old male admitted on 12/14 from long term c/o abdominal pain, nausea, and GERD. Pt only speaks/understands Sami. Pt was NPO 12/15 at Breakfast and Lunch, ate 75% dinner. Although Pt was not feeling well, he ate 100% breakfast this morning. Visited Pt after lunch, Pt was asleep. Pt had a bucket next to him with vomit, RN stated Pt was not feeling great, Pt stated a 10/ 10 stomach pain on 12/15 per Nurse note. Pt is waiting on a GI consult. Will continue to monitor glucose labs, vomiting , and PO intake. Will try to provide nutrition education at another time when Pt is awake and feeling better. HT: 56 WT: 188 LB (85.45 kg) ABW: 154 LB (69.78 kg) BMI: 30.34 (Obese) GI: Abdominal Pain, Large, Round, Bowel sounds normal BM: 12/16 x1 I/O: 1000/3275 (-2275) Skin: WNL, Warm, Dry, Intact Devang: 13 Diet Order: Mechanical Soft, LISY Estimated Energy Needs: ( Geriatric, ABW) 5244-5032 kcals (25-30 kcals/ kg) 70-84Pro (1.0-1.2 g/kg) 0940-0865 ml (25-30 ml/kg) Current Diet Order/ Nutrition Support Mechanical Soft, LISY Pertinent Medications D5-0.45ns, INS-SS, Protonix Pertinent Labs 12/15: Hgb/Hct 12.1/35.7, Ca 8.4 , Glucose 170 POC Glucose (last 24 hours): 161, 187 12/14: T Bili 0.1, AST 10, Alb 3 .3 Nutritional Hx/Data Height 1.68 m Height (Calculated Centimeters) 167.6 Current Weight (lbs) 85.275 kg Weight (Calculated Kilograms) 85.3 Weight (Calculated Grams) 42263.4 [place] Body Weight 142 LB (64.55 kg) % [place] Body Weight 132 Body Mass Index (BMI) 30.3 Weight Status Obese GI Symptoms GI Symptoms Vomitting Last BM 12/16 x1 Skin Integrity/Comment: Skin: WNL, Warm, Dry, Intact Devang: 13 Current %PO Good (75-100%) Estimated Nutritional Goals BEE in Kcals: Adj wt of IBW Calories/Kcals/Kg 25-30 Kcals Calculated 1314-6137 Protein: Adj wt of IBW Protein g/k.0-1.2 Protein Calculated 70-84 Fluid: ml 9856-7555 ml (25-30 ml/kg) Nutritional Problem 1. Problem Problem Altered nutrition related labs Etiology r/t endocrine dysfunction Signs/Symptoms: aeb Glucose 170, POC Glucose ( last 24 hours): 161, 187. Malnutrition Related to Morbid Obesity Malnutrition related to morbid obesity No Intervention/Recommendation Comments 1. Continue with Mechanical Soft, LISY diet as ordered. 2. Consider adding CCHO to diet Rx to support glucose control. 3. Continue antihyperglycemic medications for glucose control per MD order. Expected Outcomes/Goals Expected Outcomes/Goals 1. PO intake to meet 75% of nutritional needs. 2. Monitor PO intake, wt, skin integrity, and nutrition related labs to trend WNL. 3. F/U as moderate risk in 3-5 days, 12/19-12/21
--- NOTE | 2018-12-19 01:56 | Consultation ---
DATE OF CONSULTATION: 12/17/2018 PRIMARY CARE PHYSICIAN: Dr. Briscoe. HISTORY OF PRESENT ILLNESS: This is an 78-year-old male who was brought to the Emergency complaining of epigastric pain, nausea, vomiting and the patient had a CAT scan done shows stool stasis, dilated CBD, and air in the biliary tract. The patient's workup shows UTI. Infectious consultation was called. The patient's antibiotic started. Cultures ordered. GI is already on the case and aware of CAT scan findings. PAST MEDICAL HISTORY: Essential hypertension, diabetes. FAMILY HISTORY: Negative. SOCIAL HISTORY: Nonsmoker. ALLERGIES: No allergies. REVIEW OF SYSTEMS: A 14-point review of system negative except above. PHYSICAL EXAMINATION: GENERAL: Elderly male, alert, awake, cooperative. VITAL SIGNS: Temperature 97.3, pulse 70, respiration 18, blood pressure 126/80. HEENT: Mild pallor. No icterus or plaque. NECK: Supple. LUNGS: Breath sounds bilateral vesicular, decreased. CARDIOVASCULAR: S1. ABDOMEN: Distended. Bowel sounds present. Generalized tenderness. No ascites. EXTREMITIES: No pedal edema. Pulses palpable all the limbs. MUSCULOSKELETAL: Arthritic changes present. LABORATORY DATA: Cultures, UA positive for UTI, cultures are negative so far. White count 7000, hemoglobin is 11 grams, platelets 291. DIAGNOSES: Urinary tract infection with fecal stasis diverticulitis. The patient is started on Zosyn. Repeat labs tomorrow. GI evaluation. Hypertension is controlled. Accu-Chek to control diabetes and pain control with [place]. Rest of the care as ordered in CPOE. Thank you Dr. Briscoe for this consultation. JOB# [id number]
[2018-12-19] MEDS: D5-0.45NS 1,000 ML IV SCH (04:45)
[2018-12-19] MEDS: INSULIN LISPRO SLIDING SCALE 100 UNITS/ML UNIT SUBQ SCH ×2 (06:36→16:43)
--- NOTE | 2018-12-19 08:03 | GI Progress Note ---
Subjective - Review of Systems Subjective: FEELING BETTER GI OBJECTIVE - Results Result Diagrams: 12/17/18 15:15 12/17/18 15:15 Recent Labs: Laboratory Last Values WBC 7.5 Th/cmm (4.8-10.8) 12/17/18 15:15 RBC 4.00 Mil/cmm (3.80-5.80) 12/17/18 15:15 Hgb 11.5 gm/dL (12-16) L 12/17/18 15:15 Hct 34.2 % (41.0-60) L 12/17/18 15:15 MCV 85.4 fl (80-99) 12/17/18 15:15 MCH 28.8 pg (27.0-31.0) 12/17/18 15:15 MCHC Differential 33.7 pg (28.0-36.0) 12/17/18 15:15 RDW 13.0 % (11.5-20.0) 12/17/18 15:15 Plt Count 291 Th/cmm (150-400) 12/17/18 15:15 MPV 8.0 fl 12/17/18 15:15 Neutrophils % 65.3 % (40.0-80.0) 12/17/18 15:15 Lymphocytes % 23.9 % (20.0-50.0) 12/17/18 15:15 Monocytes % 5.3 % (2.0-10.0) 12/17/18 15:15 Eosinophils % 4.7 % (0.0-5.0) 12/17/18 15:15 Basophils % 0.8 % (0.0-2.0) 12/17/18 15:15 PT 10.1 SECONDS (9.5-11.5) 12/14/18 20:15 INR 0.97 (0.5-1.4) 12/14/18 20:15 PTT (Actin FS) 31.1 SECONDS (26.0-38.0) 12/14/18 20:15 Sodium 133 mEq/L (136-145) L 12/17/18 15:15 Potassium 4.6 mEq/L (3.5-5.1) 12/17/18 15:15 Chloride 102 mEq/L (98-107) 12/17/18 15:15 Carbon Dioxide 26.6 mEq/L (21.0-31.0) 12/17/18 15:15 Anion Gap 9.0 (7.0-16.0) 12/17/18 15:15 BUN 22 mg/dL (7-25) 12/17/18 15:15 Creatinine 1.3 mg/dL (0.7-1.3) 12/17/18 15:15 Est GFR ( Amer) TNP 12/17/18 15:15 Est GFR (Non-Af Amer) TNP 12/17/18 15:15 BUN/Creatinine Ratio 16.9 12/17/18 15:15 Glucose 189 mg/dL (70-105) H 12/17/18 15:15 POC Glucose 133 MG/DL (70 - 105) H 12/19/18 05:48 Calcium 8.5 mg/dL (8.6-10.3) L 12/17/18 15:15 Magnesium 2.3 mg/dL (1.9-2.7) 12/14/18 20:15 Total Bilirubin 0.2 mg/dL (0.3-1.0) L 12/17/18 15:15 AST 14 U/L (13-39) 12/17/18 15:15 ALT 20 U/L (7-52) 12/17/18 15:15 Alkaline Phosphatase 61 U/L (34-104) 12/17/18 15:15 B-Natriuretic Peptide 59.2 pg/mL (5.0-100.0) 12/14/18 20:15 Total Protein 5.9 gm/dL (6.0-8.3) L 12/17/18 15:15 Albumin 3.1 gm/dL (4.2-5.5) L 12/17/18 15:15 Globulin 2.8 gm/dL 12/17/18 15:15 Albumin/Globulin Ratio 1.1 (1.0-1.8) 12/17/18 15:15 Triglycerides 170 mg/dL (<150) H 12/14/18 20:15 Cholesterol 132 mg/dL (<200) 12/14/18 20:15 LDL Cholesterol Direct 87 mg/dL (75-193) 12/14/18 20:15 HDL Cholesterol 31 mg/dL (23-92) 12/14/18 20:15 Lipase 27 U/L (11-82) 12/17/18 15:15 Prostate Specific Ag 33.4 ng/mL (0.0-4.0) H 12/14/18 20:20 Urine Source [place] 12/14/18 20:20 Urine Color YELLOW 12/14/18 20:20 Urine Clarity TURBID (CLEAR) 12/14/18 20:20 Urine pH 6.0 (4.6 - 8.0) 12/14/18 20:20 Ur Specific [place] 1.010 (1.005-1.030) 12/14/18 20:20 Urine Protein 30 mg/dL (NEGATIVE) H 12/14/18 20:20 Urine Glucose (UA) 500 mg/dL (NEGATIVE) H 12/14/18 20:20 Urine Ketones NEGATIVE mg/dL (NEGATIVE) 12/14/18 20:20 Urine Blood LARGE (NEGATIVE) H 12/14/18 20:20 Urine Nitrate NEGATIVE (NEGATIVE) 12/14/18 20:20 Urine Bilirubin NEGATIVE (NEGATIVE) 12/14/18 20:20 Urine Urobilinogen 0.2 E.U./dL (0.2 - 1.0) 12/14/18 20:20 Ur Leukocyte Esterase MODERATE (NEGATIVE) H 12/14/18 20:20 Urine RBC 10-25 /hpf (0-5) H 12/14/18 20:20 Urine WBC 6-10 /hpf (0-5) 12/14/18 20:20 Ur Epithelial Cells OCCASIONAL /lpf (FEW) 12/14/18 20:20 Urine Bacteria MODERATE /hpf (NONE SEEN) H 12/14/18 20:20 H. pylori IgA Antibody <9.0 units (0.0-8.9) 12/14/18 20:15 - Physical Exam Vitals and I&O: Vital Signs Temp 97.2 F 12/19/18 07:56 Pulse 64 12/19/18 07:56 Resp 18 12/19/18 07:56 BP 110/70 12/19/18 07:56 Pulse Ox 100 12/19/18 07:56 Intake & Output 12/18/18 12/19/18 12/19/18 18:59 06:59 18:59 Intake Total 1700 1450 Output Total 1900 1300 Balance -200 150 Weight (lbs) 84.368 kg 84.368 kg Intake: Intake, IV Amount 100 1450 D5-0.45NS 1,000 ml @ 50 1000 mls/hr IV .Q20H [facility] Rx#: [id number] Piperacillin Sodium/ 100 200 Tazobact 4.5 gm In Sodium Chloride 0.9% 100 ml @ 100 mls/hr IV Q8HR [facility] Rx #:[id number] Vancomycin HCl 1 gm In 250 Sodium Chloride 0.9% 250 ml @ 166.667 mls/hr IV 2000 [facility] Rx#:[id number] Oral 1600 Output: Urine 1900 1300 Other: # Bowel Movements 0 Weight Source Bedscale Bedscale Active Medications: Current Medications Acetaminophen (Tylenol) 650 mg PO Q6HR PRN PRN Reason: Pain or Fever >101 Stop: 02/14/19 17:41 Acetaminophen/Hydrocodone Bitart ([place] 10 Mg/325 Mg) 1 tab PO Q4H PRN PRN Reason: Pain (Severe) Stop: 02/14/19 17:41 Last Admin: 12/18/18 12:50 Dose: 1 tab Docusate Sodium (Colace) 100 mg PO BID [facility] Stop: 02/15/19 08:59 Last Admin: 12/18/18 16:13 Dose: Not Given Escitalopram Oxalate (Lexapro) 10 mg PO DAILY [facility]; Protocol Stop: 02/15/19 08:59 Last Admin: 12/18/18 08:28 Dose: 10 mg Dextrose/Sodium Chloride (D5-0.45ns) 1,000 mls @ 50 mls/hr IV .Q20H [facility] Stop: 02/13/19 16:05 Last Admin: 12/19/18 04:45 Dose: 50 mls/hr Piperacillin Sod/Tazobactam (Sod 4.5 gm/ Sodium Chloride) 100 mls @ 100 mls/hr IV Q8HR [facility] Stop: 02/15/19 15:59 Last Infusion: 12/19/18 05:46 Dose: Infused Insulin Human Lispro (Humalog Insulin Sliding Scale) 0 units SUBQ BIDAC [facility]; Protocol Stop: 02/14/19 07:29 Last Admin: 12/19/18 06:36 Dose: Not Given Lactobacillus Rhamnosus (Culturelle 15b) 1 each PO DAILY [facility] Stop: 02/15/19 08:59 Last Admin: 12/18/18 08:28 Dose: 1 each Miscellaneous (Zosyn Iv Per Pharmacy) 1 ea PRN PRN PRN Reason: PROTOCOL Stop: 02/15/19 15:33 Miscellaneous (Vancomycin Iv Per Pharmacy) 1 ea MC PRN [facility] Stop: 02/16/19 17:14 Ondansetron HCl (Zofran) 4 mg IV Q6H PRN PRN Reason: Nausea / Vomiting Stop: 02/15/19 11:55 Last Admin: 12/18/18 10:47 Dose: 4 mg Oxycodone/Acetaminophen (Percocet 5/325mg Oral Tab) 1 tab PO Q6H PRN PRN Reason: Abdominal Pain Stop: 02/13/19 14:45 Last Admin: 12/15/18 19:56 Dose: 1 tab Pantoprazole Sodium (Protonix) 40 mg IVP QDAC [facility] Stop: 02/15/19 07:29 Last Admin: 12/19/18 06:36 Dose: 40 mg Assessment/Plan - Assessment Assessment: 78 MALE WITH RUQ PAIN CT SUGGEST CHOLESYSTITIS LFTS AND LIPASE ARE NORMAL 1.SURGERY INPUT 2.AWAIT HIDA 3.IF HIDA IS NEGATIVE AND PAIN PERSIST PT MAY NEED EGD
--- NOTE | 2018-12-19 08:16 | Diagnostic Imaging Report ---
Nuclear medicine HIDA scan HISTORY: Pain, assess for possible cholecystitis COMPARISON: CT abdomen and pelvis on 12/17/2018 Technique/procedure: 4.9 mCi of technetium labeled Choletec was administered intravenously and multiple scintigraphic images were obtained for up to 1 hour. FINDINGS: Prompt hepatic uptake is demonstrated. Small bowel uptake is seen within the first hour. No evidence of gallbladder uptake within the first hour. Her biofuels processing technician, the patient refused the remaining portions of the exam. IMPRESSION: Incomplete exam. Per biofuels processing technician, the patient refused the remaining portion of the exam after one hour. The gallbladder was not seen at 1 hour. As such, acute or chronic cholecystitis cannot be excluded. A repeat exam may be obtained for further assessment if patient can tolerate the examination.
[2018-12-19] MEDS: Lactobacillus Rhamnosus GG 15 Billion CFU CAP.SPRINK PO SCH (09:15)
[2018-12-19] MEDS: APAP/Oxycodone 5/325mg Tab PO PRN (09:15)
--- NOTE | 2018-12-19 11:09 | Internal Medicine Prog Note ---
Internal Medicine Subjective - Subjective Service Date: 12/19/18 Patient seen and examined:: with staff Patient is:: awake, verbal, in bed Patient Complaints of:: vomitting, other (RUQ Pain.) Per staff patient has:: no episodes of fall, tolerating meds Internal Medicine Objective - Results Result Diagrams: 12/17/18 15:15 12/17/18 15:15 Recent Labs: Laboratory Last Values WBC 7.5 Th/cmm (4.8-10.8) 12/17/18 15:15 RBC 4.00 Mil/cmm (3.80-5.80) 12/17/18 15:15 Hgb 11.5 gm/dL (12-16) L 12/17/18 15:15 Hct 34.2 % (41.0-60) L 12/17/18 15:15 MCV 85.4 fl (80-99) 12/17/18 15:15 MCH 28.8 pg (27.0-31.0) 12/17/18 15:15 MCHC Differential 33.7 pg (28.0-36.0) 12/17/18 15:15 RDW 13.0 % (11.5-20.0) 12/17/18 15:15 Plt Count 291 Th/cmm (150-400) 12/17/18 15:15 MPV 8.0 fl 12/17/18 15:15 Neutrophils % 65.3 % (40.0-80.0) 12/17/18 15:15 Lymphocytes % 23.9 % (20.0-50.0) 12/17/18 15:15 Monocytes % 5.3 % (2.0-10.0) 12/17/18 15:15 Eosinophils % 4.7 % (0.0-5.0) 12/17/18 15:15 Basophils % 0.8 % (0.0-2.0) 12/17/18 15:15 PT 10.1 SECONDS (9.5-11.5) 12/14/18 20:15 INR 0.97 (0.5-1.4) 12/14/18 20:15 PTT (Actin FS) 31.1 SECONDS (26.0-38.0) 12/14/18 20:15 Sodium 133 mEq/L (136-145) L 12/17/18 15:15 Potassium 4.6 mEq/L (3.5-5.1) 12/17/18 15:15 Chloride 102 mEq/L (98-107) 12/17/18 15:15 Carbon Dioxide 26.6 mEq/L (21.0-31.0) 12/17/18 15:15 Anion Gap 9.0 (7.0-16.0) 12/17/18 15:15 BUN 22 mg/dL (7-25) 12/17/18 15:15 Creatinine 1.3 mg/dL (0.7-1.3) 12/17/18 15:15 Est GFR ( Amer) TNP 12/17/18 15:15 Est GFR (Non-Af Amer) TNP 12/17/18 15:15 BUN/Creatinine Ratio 16.9 12/17/18 15:15 Glucose 189 mg/dL (70-105) H 12/17/18 15:15 POC Glucose 133 MG/DL (70 - 105) H 12/19/18 05:48 Calcium 8.5 mg/dL (8.6-10.3) L 12/17/18 15:15 Magnesium 2.3 mg/dL (1.9-2.7) 12/14/18 20:15 Total Bilirubin 0.2 mg/dL (0.3-1.0) L 12/17/18 15:15 AST 14 U/L (13-39) 12/17/18 15:15 ALT 20 U/L (7-52) 12/17/18 15:15 Alkaline Phosphatase 61 U/L (34-104) 12/17/18 15:15 B-Natriuretic Peptide 59.2 pg/mL (5.0-100.0) 12/14/18 20:15 Total Protein 5.9 gm/dL (6.0-8.3) L 12/17/18 15:15 Albumin 3.1 gm/dL (4.2-5.5) L 12/17/18 15:15 Globulin 2.8 gm/dL 12/17/18 15:15 Albumin/Globulin Ratio 1.1 (1.0-1.8) 12/17/18 15:15 Triglycerides 170 mg/dL (<150) H 12/14/18 20:15 Cholesterol 132 mg/dL (<200) 12/14/18 20:15 LDL Cholesterol Direct 87 mg/dL (75-193) 12/14/18 20:15 HDL Cholesterol 31 mg/dL (23-92) 12/14/18 20:15 Lipase 27 U/L (11-82) 12/17/18 15:15 Prostate Specific Ag 33.4 ng/mL (0.0-4.0) H 12/14/18 20:20 Urine Source [place] 12/14/18 20:20 Urine Color YELLOW 12/14/18 20:20 Urine Clarity TURBID (CLEAR) 12/14/18 20:20 Urine pH 6.0 (4.6 - 8.0) 12/14/18 20:20 Ur Specific [place] 1.010 (1.005-1.030) 12/14/18 20:20 Urine Protein 30 mg/dL (NEGATIVE) H 12/14/18 20:20 Urine Glucose (UA) 500 mg/dL (NEGATIVE) H 12/14/18 20:20 Urine Ketones NEGATIVE mg/dL (NEGATIVE) 12/14/18 20:20 Urine Blood LARGE (NEGATIVE) H 12/14/18 20:20 Urine Nitrate NEGATIVE (NEGATIVE) 12/14/18 20:20 Urine Bilirubin NEGATIVE (NEGATIVE) 12/14/18 20:20 Urine Urobilinogen 0.2 E.U./dL (0.2 - 1.0) 12/14/18 20:20 Ur Leukocyte Esterase MODERATE (NEGATIVE) H 12/14/18 20:20 Urine RBC 10-25 /hpf (0-5) H 12/14/18 20:20 Urine WBC 6-10 /hpf (0-5) 12/14/18 20:20 Ur Epithelial Cells OCCASIONAL /lpf (FEW) 12/14/18 20:20 Urine Bacteria MODERATE /hpf (NONE SEEN) H 12/14/18 20:20 H. pylori IgA Antibody <9.0 units (0.0-8.9) 12/14/18 20:15 - Physical Exam Vitals and I&O: Vital Signs Temp 97.2 F 12/19/18 07:56 Pulse 64 12/19/18 07:56 Resp 18 12/19/18 08:00 BP 110/70 12/19/18 07:56 Pulse Ox 100 12/19/18 07:56 Intake & Output 12/18/18 12/19/18 12/19/18 18:59 06:59 18:59 Intake Total 1700 1450 Output Total 1900 1300 Balance -200 150 Weight (lbs) 84.368 kg 84.368 kg Intake: Intake, IV Amount 100 1450 D5-0.45NS 1,000 ml @ 50 1000 mls/hr IV .Q20H [facility] Rx#: [id number] Piperacillin Sodium/ 100 200 Tazobact 4.5 gm In Sodium Chloride 0.9% 100 ml @ 100 mls/hr IV Q8HR [facility] Rx #:[id number] Vancomycin HCl 1 gm In 250 Sodium Chloride 0.9% 250 ml @ 166.667 mls/hr IV 2000 [facility] Rx#:[id number] Oral 1600 Output: Urine 1900 1300 Other: # Bowel Movements 0 Weight Source Bedscale Bedscale Active Medications: Current Medications Acetaminophen (Tylenol) 650 mg PO Q6HR PRN PRN Reason: Pain or Fever >101 Stop: 02/14/19 17:41 Acetaminophen/Hydrocodone Bitart ([place] 10 Mg/325 Mg) 1 tab PO Q4H PRN PRN Reason: Pain (Severe) Stop: 02/14/19 17:41 Last Admin: 12/18/18 12:50 Dose: 1 tab Docusate Sodium (Colace) 100 mg PO BID [facility] Stop: 02/15/19 08:59 Last Admin: 12/19/18 09:15 Dose: 100 mg Escitalopram Oxalate (Lexapro) 10 mg PO DAILY [facility]; Protocol Stop: 02/15/19 08:59 Last Admin: 12/19/18 09:15 Dose: 10 mg Dextrose/Sodium Chloride (D5-0.45ns) 1,000 mls @ 50 mls/hr IV .Q20H [facility] Stop: 02/13/19 16:05 Last Admin: 12/19/18 04:45 Dose: 50 mls/hr Piperacillin Sod/Tazobactam (Sod 4.5 gm/ Sodium Chloride) 100 mls @ 100 mls/hr IV Q8HR [facility] Stop: 02/15/19 15:59 Last Infusion: 12/19/18 05:46 Dose: Infused Vancomycin HCl 1.5 gm/ Sodium (Chloride) 500 mls @ 250 mls/hr IV Q24H [facility] Stop: 02/17/19 14:59 Insulin Human Lispro (Humalog Insulin Sliding Scale) 0 units SUBQ BIDAC [facility]; Protocol Stop: 02/14/19 07:29 Last Admin: 12/19/18 06:36 Dose: Not Given Lactobacillus Rhamnosus (Culturelle 15b) 1 each PO DAILY [facility] Stop: 02/15/19 08:59 Last Admin: 12/19/18 09:15 Dose: 1 each Miscellaneous (Zosyn Iv Per Pharmacy) 1 [facility] PRN PRN PRN Reason: PROTOCOL Stop: 02/15/19 15:33 Miscellaneous (Vancomycin Iv Per Pharmacy) 1 [facility] PRN ALONDRA Stop: 02/16/19 17:14 Ondansetron HCl (Zofran) 4 mg IV Q6H PRN PRN Reason: Nausea / Vomiting Stop: 02/15/19 11:55 Last Admin: 12/19/18 09:06 Dose: 4 mg Oxycodone/Acetaminophen (Percocet 5/325mg Oral Tab) 1 tab PO Q6H PRN PRN Reason: Abdominal Pain Stop: 02/13/19 14:45 Last Admin: 12/19/18 09:15 Dose: 1 tab Pantoprazole Sodium (Protonix) 40 mg IVP QDAC [facility] Stop: 02/15/19 07:29 Last Admin: 12/19/18 06:36 Dose: 40 mg Physical Exam: Patient still complains of RUQ pain and was diagnosed with UTI, Diverticulitus and Cholecystitis. General: weak, alert HEENT: NC/AT, PERRLA Neck: Supple Lungs: CTAB Cardiovascular: RRR, Normal S1, Normal S2, without murmur Abdomen: soft, tender, non-distended, positive bowel sound Extremities: excoriation Neurological: alert Internal Medicine Assmt/Plan - Assessment Assessment: Cholecystitis. Diverticulitis. Epigastric pain. Mild Arthritis. R/o Cancer. Gastritis. Gerd. Diabetes. Hypertension. Dementia. UTI. complicated. Depression. Insomnia. Generalized weakness. Atelectasis. Back pain. - Plan Plan: Continuation of care. Monitor Labs. Continue present meds as directed. Monitor diet/Nutritional support. Psych management per Psych. Accu-check daily, continue DM meds as directed. Monitor vitals, continue B/P meds as directed. Pain Management. Continue collaborating with consulting specialists case management and nursing team. Will Monitor patient and continue present care management. Nutritional Asmnt/Malnutr-PDOC - Dietary Evaluation Malnutrition Findings (Please click <Entered> for more info): Nutritional Asmnt/Malnutrition Start: 12/16/18 13: 59 Text: Status: Complete Freq: Protocol: Document 12/16/18 13:59 FRANSISCO (Rec: 12/16/18 14:02 FRANSISCO [id number]) Nutritional Asmnt/Malnutrition Patient General Information Nutritional Screening Moderate Risk Consult Diagnosis Abdominal Pain Pertinent Medical Hx/Surgical Hx DM, GERD, Dementia, HTN, Arthritis Subjective Information Consult: GERD, DM, Abdominal Pain Pt is a 78-year-old male admitted on 12/14 from senior care c/o abdominal pain, nausea, and GERD. Pt only speaks/understands Dutch. Pt was NPO 12/15 at Breakfast and Lunch, ate 75% dinner. Although Pt was not feeling well, he ate 100% breakfast this morning. Visited Pt after lunch, Pt was asleep. Pt had a bucket next to him with vomit, RN stated Pt was not feeling great, Pt stated a 10/ 10 stomach pain on 12/15 per Nurse note. Pt is waiting on a GI consult. Will continue to monitor glucose labs, vomiting , and PO intake. Will try to provide nutrition education at another time when Pt is awake and feeling better. HT: 56 WT: 188 LB (85.45 kg) ABW: 154 LB (69.78 kg) BMI: 30.34 (Obese) GI: Abdominal Pain, Large, Round, Bowel sounds normal BM: 12/16 x1 I/O: 1000/3275 (-2275) Skin: WNL, Warm, Dry, Intact Devang: 13 Diet Order: Mechanical Soft, LISY Estimated Energy Needs: ( Geriatric, ABW) 2049-6516 kcals (25-30 kcals/ kg) 70-84Pro (1.0-1.2 g/kg) 2161-0219 ml (25-30 ml/kg) Current Diet Order/ Nutrition Support Mechanical Soft, LISY Pertinent Medications D5-0.45ns, INS-SS, Protonix Pertinent Labs 12/15: Hgb/Hct 12.1/35.7, Ca 8.4 , Glucose 170 POC Glucose (last 24 hours): 161, 187 12/14: T Bili 0.1, AST 10, Alb 3 .3 Nutritional Hx/Data Height 1.68 m Height (Calculated Centimeters) 167.6 Current Weight (lbs) 85.275 kg Weight (Calculated Kilograms) 85.3 Weight (Calculated Grams) 44865.4 [place] Body Weight 142 LB (64.55 kg) % [place] Body Weight 132 Body Mass Index (BMI) 30.3 Weight Status Obese GI Symptoms GI Symptoms Vomitting Last BM 12/16 x1 Skin Integrity/Comment: Skin: WNL, Warm, Dry, Intact Devang: 13 Current %PO Good (75-100%) Estimated Nutritional Goals BEE in Kcals: Adj wt of IBW Calories/Kcals/Kg 25-30 Kcals Calculated 4635-1097 Protein: Adj wt of IBW Protein g/k.0-1.2 Protein Calculated 70-84 Fluid: ml 3716-9482 ml (25-30 ml/kg) Nutritional Problem 1. Problem Problem Altered nutrition related labs Etiology r/t endocrine dysfunction Signs/Symptoms: aeb Glucose 170, POC Glucose ( last 24 hours): 161, 187. Malnutrition Related to Morbid Obesity Malnutrition related to morbid obesity No Intervention/Recommendation Comments 1. Continue with Mechanical Soft, LISY diet as ordered. 2. Consider adding CCHO to diet Rx to support glucose control. 3. Continue antihyperglycemic medications for glucose control per MD order. Expected Outcomes/Goals Expected Outcomes/Goals 1. PO intake to meet 75% of nutritional needs. 2. Monitor PO intake, wt, skin integrity, and nutrition related labs to trend WNL. 3. F/U as moderate risk in 3-5 days, 12/19-12/21
[2018-12-19] MEDS: Hydrocodone/APAP 10 mg/325 mg Tab PO PRN ×2 (13:44→22:23)
[2018-12-19 14:30] LABS: % BASOPHILS 0.4 % (0.0-2.0); % EOSINOPHILS 3.1 % (0.0-5.0); % LYMPHOCYTES 11.7 % (20.0-50.0); % MONOCYTES 3.7 % (2.0-10.0); % NEUTROPHILS 81.1 % (40.0-80.0); EOSINOPHILE ABSOLUTE 0.3 Th/cmm (0.1-0.4); HEMATOCRIT 33.9 % (41.0-60); HEMOGLOBIN 11.4 gm/dL (12-16); LYMPHOCYTE ABSOLUTE 1.3 Th/cmm (1.5-3.0); MEAN CELL VOLUME 85.4 fl (80-99); MEAN CORPUSCULAR HEMOGLOBIN 28.8 pg (27.0-31.0); MEAN CORPUSCULAR HGB CONC 33.7 pg (28.0-36.0); MONOCYTE ABSOLUTE 0.4 Th/cmm (0.3-1.0); NEUTROPHILE ABSOLUTE 9.2 Th/cmm (1.8-8.0); PLATELET COUNT 293 Th/cmm (150-400); RED BLOOD COUNT 3.97 Mil/cmm (3.80-5.80); RED CELL DISTRIBUTION WIDTH 12.7 % (11.5-20.0); WHITE BLOOD COUNT 11.2 Th/cmm (4.8-10.8)
[2018-12-19] MEDS: Vancomycin HCl 1.5 GM in Sodium Chloride 0.9% 500 ML IV SCH (15:11)
[2018-12-19 15:16] LABS: ANION GAP 11.1 (7.0-16.0); BUN - UREA NITROGEN 24 mg/dL (7-25); CALCIUM SERUM 8.2 mg/dL (8.6-10.3); CARBON DIOXIDE 25.2 mEq/L (21.0-31.0); CHLORIDE 105 mEq/L (98-107); CREATININE - SERUM 1.7 mg/dL (0.7-1.3); GLUCOSE 196 mg/dL (70-105); POTASSIUM SERUM 4.3 mEq/L (3.5-5.1); SODIUM SERUM 137 mEq/L (136-145)
--- NOTE | 2018-12-19 18:42 | Infectious Disease Prog Note ---
Infectious Disease Subjective - Review of Systems Service Date: 12/19/18 Events since last encounter: cc cons bacteremia. diverticulitis uti hpi on abx tolerating bl s cx staph wernii ros o efrv o.e vs chets claer abd soft tender ext pilse Vital Signs - 24 hr 12/18/18 12/19/18 12/19/18 20:00 00:00 04:00 Temp 97.5 F 97.1 F 97.3 F HR 67 69 69 RR 18 20 20 BP 110/66 117/70 104/65 O2 Sat % 97 96 97 12/19/18 12/19/18 12/19/18 07:56 08:00 12:10 Temp 97.2 F 98.0 F HR 64 72 RR 18 18 18 BP 110/70 101/63 O2 Sat % 100 99 12/19/18 16:24 Temp 98.2 F HR 76 RR 18 BP 100/58 O2 Sat % 98 Microbiology 12/14/18 20:30 Blood - Final Staphylococcus Coag Neg 12/14/18 20:15 Blood - Final Staphylococcus Warneri 12/14/18 20:20 Urine Urine Culture - Final 12/14/18 20:05 Nares - Final NO MRSA ISOLATED Laboratory Results - last 24 hr 12/19/18 12/19/18 12/19/18 05:48 14:25 14:25 WBC 11.2 H RBC 3.97 Hgb 11.4 L Hct 33.9 L MCV 85.4 MCH 28.8 MCHC Differential 33.7 RDW 12.7 Plt Count 293 MPV 8.0 Neutrophils % 81.1 H Lymphocytes % 11.7 L Monocytes % 3.7 Eosinophils % 3.1 Basophils % 0.4 Sodium 137 Potassium 4.3 Chloride 105 Carbon Dioxide 25.2 Anion Gap 11.1 BUN 24 Creatinine 1.7 H Est GFR ( Amer) TNP Est GFR (Non-Af Amer) TNP BUN/Creatinine Ratio 14.1 Glucose 196 H POC Glucose 133 H Calcium 8.2 L 12/19/18 16:23 WBC RBC Hgb Hct MCV MCH MCHC Differential RDW Plt Count MPV Neutrophils % Lymphocytes % Monocytes % Eosinophils % Basophils % Sodium Potassium Chloride Carbon Dioxide Anion Gap BUN Creatinine Est GFR ( Amer) Est GFR (Non-Af Amer) BUN/Creatinine Ratio Glucose POC Glucose 162 H Calcium Diagnoses TYPE 2 DIABETES MELLITUS WITHOUT COMPLICATIONS (12/14/18) UNSPECIFIED DEMENTIA WITHOUT BEHAVIORAL DISTURBANCE (12/14/18) ATELECTASIS (12/14/18) GASTRO-ESOPHAGEAL REFLUX DISEASE WITHOUT ESOPHAGITIS (12/14/18) CHOLECYSTITIS, UNSPECIFIED (12/14/18) UNSPECIFIED OSTEOARTHRITIS, UNSPECIFIED SITE (12/14/18) URINARY TRACT INFECTION, SITE NOT SPECIFIED (12/14/18) EPIGASTRIC PAIN (12/14/18) WEAKNESS (12/14/18) Current Medications Acetaminophen (Tylenol) 650 mg PO Q6HR PRN PRN Reason: Pain or Fever >101 Stop: 02/14/19 17:41 Acetaminophen/Hydrocodone Bitart ([place] 10 Mg/325 Mg) 1 tab PO Q4H PRN PRN Reason: Pain (Severe) Stop: 02/14/19 17:41 Last Admin: 12/19/18 13:44 Dose: 1 tab Docusate Sodium (Colace) 100 mg PO BID [facility] Stop: 02/15/19 08:59 Last Admin: 12/19/18 17:11 Dose: 100 mg Escitalopram Oxalate (Lexapro) 10 mg PO DAILY [facility]; Protocol Stop: 02/15/19 08:59 Last Admin: 12/19/18 09:15 Dose: 10 mg Dextrose/Sodium Chloride (D5-0.45ns) 1,000 mls @ 50 mls/hr IV .Q20H [facility] Stop: 02/13/19 16:05 Last Admin: 12/19/18 04:45 Dose: 50 mls/hr Piperacillin Sod/Tazobactam (Sod 4.5 gm/ Sodium Chloride) 100 mls @ 100 mls/hr IV Q8HR [facility] Stop: 02/15/19 15:59 Last Admin: 12/19/18 12:43 Dose: 100 mls/hr Vancomycin HCl 1.5 gm/ Sodium (Chloride) 500 mls @ 250 mls/hr IV Q24H [facility] Stop: 02/17/19 14:59 Last Admin: 12/19/18 15:11 Dose: 250 mls/hr Insulin Human Lispro (Humalog Insulin Sliding Scale) 0 units SUBQ BIDAC [facility]; Protocol Stop: 02/14/19 07:29 Last Admin: 12/19/18 16:43 Dose: Not Given Lactobacillus Rhamnosus (Culturelle 15b) 1 each PO DAILY [facility] Stop: 02/15/19 08:59 Last Admin: 12/19/18 09:15 Dose: 1 each Miscellaneous (Zosyn Iv Per Pharmacy) 1 ea PRN PRN PRN Reason: PROTOCOL Stop: 02/15/19 15:33 Miscellaneous (Vancomycin Iv Per Pharmacy) 1 ea PRN [facility] Stop: 02/16/19 17:14 Ondansetron HCl (Zofran) 4 mg IV Q6H PRN PRN Reason: Nausea / Vomiting Stop: 02/15/19 11:55 Last Admin: 12/19/18 09:06 Dose: 4 mg Oxycodone/Acetaminophen (Percocet 5/325mg Oral Tab) 1 tab PO Q6H PRN PRN Reason: Abdominal Pain Stop: 02/13/19 14:45 Last Admin: 12/19/18 09:15 Dose: 1 tab Pantoprazole Sodium (Protonix) 40 mg IVP QDAC [facility] Stop: 02/15/19 07:29 Last Admin: 12/19/18 06:36 Dose: 40 mg Subjective: cc uti/diverticuklitis hpi- seen by gi ros no fevr o.e vs chest claer abd soft ext puilse Vital Signs - 24 hr 12/17/18 12/17/18 12/17/18 19:00 20:00 23:00 Temp 97.4 F 97.0 F HR 60 80 RR 20 18 20 BP 114/82 114/73 O2 Sat % 100 12/18/18 12/18/18 12/18/18 03:00 08:00 12:37 Temp 97.7 F 97.9 F 97.5 F HR 92 60 77 RR 18 18 18 BP 102/79 93/65 113/66 O2 Sat % 95 98 96 12/18/18 16:00 Temp 98.0 F HR 66 RR 18 BP 110/71 O2 Sat % 97 Microbiology 12/14/18 20:30 Blood - Preliminary 12/14/18 20:15 Blood - Preliminary 12/14/18 20:20 Urine Urine Culture - Final 12/14/18 20:05 Nares - Final NO MRSA ISOLATED Laboratory Results - last 24 hr 12/14/18 12/17/18 12/18/18 20:15 15:15 05:45 Sodium 133 L Potassium 4.6 Chloride 102 Carbon Dioxide 26.6 Anion Gap 9.0 BUN 22 Creatinine 1.3 Est GFR ( Amer) TNP Est GFR (Non-Af Amer) TNP BUN/Creatinine Ratio 16.9 Glucose 189 H POC Glucose 147 H Calcium 8.5 L Total Bilirubin 0.2 L AST 14 ALT 20 Alkaline Phosphatase 61 Total Protein 5.9 L Albumin 3.1 L Globulin 2.8 Albumin/Globulin Ratio 1.1 Lipase 27 H. pylori IgA Antibody <9.0 12/18/18 16:09 Sodium Potassium Chloride Carbon Dioxide Anion Gap BUN Creatinine Est GFR ( Amer) Est GFR (Non-Af Amer) BUN/Creatinine Ratio Glucose POC Glucose 213 H Calcium Total Bilirubin AST ALT Alkaline Phosphatase Total Protein Albumin Globulin Albumin/Globulin Ratio Lipase H. pylori IgA Antibody Diagnoses TYPE 2 DIABETES MELLITUS WITHOUT COMPLICATIONS (12/14/18) UNSPECIFIED DEMENTIA WITHOUT BEHAVIORAL DISTURBANCE (12/14/18) ATELECTASIS (12/14/18) GASTRO-ESOPHAGEAL REFLUX DISEASE WITHOUT ESOPHAGITIS (12/14/18) UNSPECIFIED OSTEOARTHRITIS, UNSPECIFIED SITE (12/14/18) URINARY TRACT INFECTION, SITE NOT SPECIFIED (12/14/18) EPIGASTRIC PAIN (12/14/18) WEAKNESS (12/14/18) Current Medications Acetaminophen (Tylenol) 650 mg PO Q6HR PRN PRN Reason: Pain or Fever >101 Stop: 02/14/19 17:41 Acetaminophen/Hydrocodone Bitart ([place] 10 Mg/325 Mg) 1 tab PO Q4H PRN PRN Reason: Pain (Severe) Stop: 02/14/19 17:41 Last Admin: 12/18/18 12:50 Dose: 1 tab Docusate Sodium (Colace) 100 mg PO BID [facility] Stop: 02/15/19 08:59 Last Admin: 12/18/18 16:13 Dose: Not Given Escitalopram Oxalate (Lexapro) 10 mg PO DAILY [facility]; Protocol Stop: 02/15/19 08:59 Last Admin: 12/18/18 08:28 Dose: 10 mg Dextrose/Sodium Chloride (D5-0.45ns) 1,000 mls @ 50 mls/hr IV .Q20H [facility] Stop: 02/13/19 16:05 Last Admin: 12/18/18 03:17 Dose: 50 mls/hr Piperacillin Sod/Tazobactam (Sod 4.5 gm/ Sodium Chloride) 100 mls @ 100 mls/hr IV Q8HR [facility] Stop: 02/15/19 15:59 Last Admin: 12/18/18 12:12 Dose: 100 mls/hr Insulin Human Lispro (Humalog Insulin Sliding Scale) 0 units SUBQ BIDAC [facility]; Protocol Stop: 02/14/19 07:29 Last Admin: 12/18/18 16:14 Dose: 4 units Lactobacillus Rhamnosus (Culturelle 15b) 1 each PO DAILY [facility] Stop: 02/15/19 08:59 Last Admin: 12/18/18 08:28 Dose: 1 each Miscellaneous (Zosyn Iv Per Pharmacy) 1 [facility] PRN PRN PRN Reason: PROTOCOL Stop: 02/15/19 15:33 Ondansetron HCl (Zofran) 4 mg IV Q6H PRN PRN Reason: Nausea / Vomiting Stop: 02/15/19 11:55 Last Admin: 12/18/18 10:47 Dose: 4 mg Oxycodone/Acetaminophen (Percocet 5/325mg Oral Tab) 1 tab PO Q6H PRN PRN Reason: Abdominal Pain Stop: 02/13/19 14:45 Last Admin: 12/15/18 19:56 Dose: 1 tab Pantoprazole Sodium (Protonix) 40 mg IVP QDAC [facility] Stop: 02/15/19 07:29 Last Admin: 12/18/18 08:27 Dose: 40 mg Infectious Disease Objective - Results Result Diagrams: 12/19/18 14:25 12/19/18 14:25 Recent Labs: Laboratory Last Values WBC 11.2 Th/cmm (4.8-10.8) H 12/19/18 14:25 RBC 3.97 Mil/cmm (3.80-5.80) 12/19/18 14:25 Hgb 11.4 gm/dL (12-16) L 12/19/18 14:25 Hct 33.9 % (41.0-60) L 12/19/18 14:25 MCV 85.4 fl (80-99) 12/19/18 14:25 MCH 28.8 pg (27.0-31.0) 12/19/18 14:25 MCHC Differential 33.7 pg (28.0-36.0) 12/19/18 14:25 RDW 12.7 % (11.5-20.0) 12/19/18 14:25 Plt Count 293 Th/cmm (150-400) 12/19/18 14:25 MPV 8.0 fl 12/19/18 14:25 Neutrophils % 81.1 % (40.0-80.0) H 12/19/18 14:25 Lymphocytes % 11.7 % (20.0-50.0) L 12/19/18 14:25 Monocytes % 3.7 % (2.0-10.0) 12/19/18 14:25 Eosinophils % 3.1 % (0.0-5.0) 12/19/18 14:25 Basophils % 0.4 % (0.0-2.0) 12/19/18 14:25 PT 10.1 SECONDS (9.5-11.5) 12/14/18 20:15 INR 0.97 (0.5-1.4) 12/14/18 20:15 PTT (Actin FS) 31.1 SECONDS (26.0-38.0) 12/14/18 20:15 Sodium 137 mEq/L (136-145) 12/19/18 14:25 Potassium 4.3 mEq/L (3.5-5.1) 12/19/18 14:25 Chloride 105 mEq/L (98-107) 12/19/18 14:25 Carbon Dioxide 25.2 mEq/L (21.0-31.0) 12/19/18 14:25 Anion Gap 11.1 (7.0-16.0) 12/19/18 14:25 BUN 24 mg/dL (7-25) 12/19/18 14:25 Creatinine 1.7 mg/dL (0.7-1.3) H 12/19/18 14:25 Est GFR ( Amer) TNP 12/19/18 14:25 Est GFR (Non-Af Amer) TNP 12/19/18 14:25 BUN/Creatinine Ratio 14.1 12/19/18 14:25 Glucose 196 mg/dL (70-105) H 12/19/18 14:25 POC Glucose 162 MG/DL (70 - 105) H 12/19/18 16:23 Calcium 8.2 mg/dL (8.6-10.3) L 12/19/18 14:25 Magnesium 2.3 mg/dL (1.9-2.7) 12/14/18 20:15 Total Bilirubin 0.2 mg/dL (0.3-1.0) L 12/17/18 15:15 AST 14 U/L (13-39) 12/17/18 15:15 ALT 20 U/L (7-52) 12/17/18 15:15 Alkaline Phosphatase 61 U/L (34-104) 12/17/18 15:15 B-Natriuretic Peptide 59.2 pg/mL (5.0-100.0) 12/14/18 20:15 Total Protein 5.9 gm/dL (6.0-8.3) L 12/17/18 15:15 Albumin 3.1 gm/dL (4.2-5.5) L 12/17/18 15:15 Globulin 2.8 gm/dL 12/17/18 15:15 Albumin/Globulin Ratio 1.1 (1.0-1.8) 12/17/18 15:15 Triglycerides 170 mg/dL (<150) H 12/14/18 20:15 Cholesterol 132 mg/dL (<200) 12/14/18 20:15 LDL Cholesterol Direct 87 mg/dL (75-193) 12/14/18 20:15 HDL Cholesterol 31 mg/dL (23-92) 12/14/18 20:15 Lipase 27 U/L (11-82) 12/17/18 15:15 Prostate Specific Ag 33.4 ng/mL (0.0-4.0) H 12/14/18 20:20 Urine Source [place] 12/14/18 20:20 Urine Color YELLOW 12/14/18 20:20 Urine Clarity TURBID (CLEAR) 12/14/18 20:20 Urine pH 6.0 (4.6 - 8.0) 12/14/18 20:20 Ur Specific [place] 1.010 (1.005-1.030) 12/14/18 20:20 Urine Protein 30 mg/dL (NEGATIVE) H 12/14/18 20:20 Urine Glucose (UA) 500 mg/dL (NEGATIVE) H 12/14/18 20:20 Urine Ketones NEGATIVE mg/dL (NEGATIVE) 12/14/18 20:20 Urine Blood LARGE (NEGATIVE) H 12/14/18 20:20 Urine Nitrate NEGATIVE (NEGATIVE) 12/14/18 20:20 Urine Bilirubin NEGATIVE (NEGATIVE) 12/14/18 20:20 Urine Urobilinogen 0.2 E.U./dL (0.2 - 1.0) 12/14/18 20:20 Ur Leukocyte Esterase MODERATE (NEGATIVE) H 12/14/18 20:20 Urine RBC 10-25 /hpf (0-5) H 12/14/18 20:20 Urine WBC 6-10 /hpf (0-5) 12/14/18 20:20 Ur Epithelial Cells OCCASIONAL /lpf (FEW) 12/14/18 20:20 Urine Bacteria MODERATE /hpf (NONE SEEN) H 12/14/18 20:20 H. pylori IgA Antibody <9.0 units (0.0-8.9) 12/14/18 20:15 - Physical Exam Vitals and I&O: Vital Signs Temp 98.2 F 12/19/18 16:24 Pulse 76 12/19/18 16:24 Resp 18 12/19/18 16:24 BP 100/58 12/19/18 16:24 Pulse Ox 98 12/19/18 16:24 Intake & Output 12/18/18 12/19/18 12/19/18 18:59 06:59 18:59 Intake Total 1700 1450 650 Output Total 1900 1300 1300 Balance -200 150 -650 Weight (lbs) 84.368 kg 84.368 kg 73.391 kg Intake: Intake, IV Amount 100 1450 D5-0.45NS 1,000 ml @ 50 1000 mls/hr IV .Q20H [facility] Rx#: [id number] Piperacillin Sodium/ 100 200 Tazobact 4.5 gm In Sodium Chloride 0.9% 100 ml @ 100 mls/hr IV Q8HR [facility] Rx #:[id number] Vancomycin HCl 1 gm In 250 Sodium Chloride 0.9% 250 ml @ 166.667 mls/hr IV 2000 [facility] Rx#:[id number] Oral 1600 650 Output: Urine 1900 1300 1300 Other: # Bowel Movements 0 2 Weight Source Bedscale Bedscale Bedscale Active Medications: Current Medications Acetaminophen (Tylenol) 650 mg PO Q6HR PRN PRN Reason: Pain or Fever >101 Stop: 02/14/19 17:41 Acetaminophen/Hydrocodone Bitart ([place] 10 Mg/325 Mg) 1 tab PO Q4H PRN PRN Reason: Pain (Severe) Stop: 02/14/19 17:41 Last Admin: 12/19/18 13:44 Dose: 1 tab Docusate Sodium (Colace) 100 mg PO BID [facility] Stop: 02/15/19 08:59 Last Admin: 12/19/18 17:11 Dose: 100 mg Escitalopram Oxalate (Lexapro) 10 mg PO DAILY [facility]; Protocol Stop: 02/15/19 08:59 Last Admin: 12/19/18 09:15 Dose: 10 mg Dextrose/Sodium Chloride (D5-0.45ns) 1,000 mls @ 50 mls/hr IV .Q20H [facility] Stop: 02/13/19 16:05 Last Admin: 12/19/18 04:45 Dose: 50 mls/hr Piperacillin Sod/Tazobactam (Sod 4.5 gm/ Sodium Chloride) 100 mls @ 100 mls/hr IV Q8HR [facility] Stop: 02/15/19 15:59 Last Admin: 12/19/18 12:43 Dose: 100 mls/hr Vancomycin HCl 1.5 gm/ Sodium (Chloride) 500 mls @ 250 mls/hr IV Q24H [facility] Stop: 02/17/19 14:59 Last Admin: 12/19/18 15:11 Dose: 250 mls/hr Insulin Human Lispro (Humalog Insulin Sliding Scale) 0 units SUBQ BIDAC [facility]; Protocol Stop: 02/14/19 07:29 Last Admin: 12/19/18 16:43 Dose: Not Given Lactobacillus Rhamnosus (Culturelle 15b) 1 each PO DAILY [facility] Stop: 02/15/19 08:59 Last Admin: 12/19/18 09:15 Dose: 1 each Miscellaneous (Zosyn Iv Per Pharmacy) 1 ea PRN PRN PRN Reason: PROTOCOL Stop: 02/15/19 15:33 Miscellaneous (Vancomycin Iv Per Pharmacy) 1 ea [facility] PRN [facility] Stop: 02/16/19 17:14 Ondansetron HCl (Zofran) 4 mg IV Q6H PRN PRN Reason: Nausea / Vomiting Stop: 02/15/19 11:55 Last Admin: 12/19/18 09:06 Dose: 4 mg Oxycodone/Acetaminophen (Percocet 5/325mg Oral Tab) 1 tab PO Q6H PRN PRN Reason: Abdominal Pain Stop: 02/13/19 14:45 Last Admin: 12/19/18 09:15 Dose: 1 tab Pantoprazole Sodium (Protonix) 40 mg IVP QDAC [facility] Stop: 02/15/19 07:29 Last Admin: 12/19/18 06:36 Dose: 40 mg Nutritional Asmnt/Malnutr-PDOC - Dietary Evaluation Malnutrition Findings (Please click <Entered> for more info): Nutritional Asmnt/Malnutrition Start: 12/16/18 13: 59 Text: Status: Complete Freq: Protocol: Document 12/16/18 13:59 FRANSISCO (Rec: 12/16/18 14:02 FRANSISCO [email or web address]) Nutritional Asmnt/Malnutrition Patient General Information Nutritional Screening Moderate Risk Consult Diagnosis Abdominal Pain Pertinent Medical Hx/Surgical Hx DM, GERD, Dementia, HTN, Arthritis Subjective Information Consult: GERD, DM, Abdominal Pain Pt is a 78-year-old male admitted on 12/14 from half-way c/o abdominal pain, nausea, and GERD. Pt only speaks/understands Latvian. Pt was NPO 12/15 at Breakfast and Lunch, ate 75% dinner. Although Pt was not feeling well, he ate 100% breakfast this morning. Visited Pt after lunch, Pt was asleep. Pt had a bucket next to him with vomit, RN stated Pt was not feeling great, Pt stated a 10/ 10 stomach pain on 12/15 per Nurse note. Pt is waiting on a GI consult. Will continue to monitor glucose labs, vomiting , and PO intake. Will try to provide nutrition education at another time when Pt is awake and feeling better. HT: 56 WT: 188 LB (85.45 kg) ABW: 154 LB (69.78 kg) BMI: 30.34 (Obese) GI: Abdominal Pain, Large, Round, Bowel sounds normal BM: 12/16 x1 I/O: 1000/3275 (-2275) Skin: WNL, Warm, Dry, Intact Devang: 13 Diet Order: Mechanical Soft, LISY Estimated Energy Needs: ( Geriatric, ABW) 5930-6483 kcals (25-30 kcals/ kg) 70-84Pro (1.0-1.2 g/kg) 0441-1339 ml (25-30 ml/kg) Current Diet Order/ Nutrition Support Mechanical Soft, LISY Pertinent Medications D5-0.45ns, INS-SS, Protonix Pertinent Labs 12/15: Hgb/Hct 12.1/35.7, Ca 8.4 , Glucose 170 POC Glucose (last 24 hours): 161, 187 12/14: T Bili 0.1, AST 10, Alb 3 .3 Nutritional Hx/Data Height 1.68 m Height (Calculated Centimeters) 167.6 Current Weight (lbs) 85.275 kg Weight (Calculated Kilograms) 85.3 Weight (Calculated Grams) 62413.4 [place] Body Weight 142 LB (64.55 kg) % [place] Body Weight 132 Body Mass Index (BMI) 30.3 Weight Status Obese GI Symptoms GI Symptoms Vomitting Last BM 12/16 x1 Skin Integrity/Comment: Skin: WNL, Warm, Dry, Intact Devang: 13 Current %PO Good (75-100%) Estimated Nutritional Goals BEE in Kcals: Adj wt of IBW Calories/Kcals/Kg 25-30 Kcals Calculated 5847-8547 Protein: Adj wt of IBW Protein g/k.0-1.2 Protein Calculated 70-84 Fluid: ml 2963-6949 ml (25-30 ml/kg) Nutritional Problem 1. Problem Problem Altered nutrition related labs Etiology r/t endocrine dysfunction Signs/Symptoms: aeb Glucose 170, POC Glucose ( last 24 hours): 161, 187. Malnutrition Related to Morbid Obesity Malnutrition related to morbid obesity No Intervention/Recommendation Comments 1. Continue with Mechanical Soft, LISY diet as ordered. 2. Consider adding CCHO to diet Rx to support glucose control. 3. Continue antihyperglycemic medications for glucose control per MD order. Expected Outcomes/Goals Expected Outcomes/Goals 1. PO intake to meet 75% of nutritional needs. 2. Monitor PO intake, wt, skin integrity, and nutrition related labs to trend WNL. 3. F/U as moderate risk in 3-5 days, 12/19-12/21
--- NOTE | 2018-12-19 21:04 | Progress Notes ---
DATE: 12/17/2018 Case was discussed with staff of the patient, reviewed records. Dr. Hays saw the patient on 12/17/2018. The patient was admitted on 12/14/2018. The patient was admitted because of abdominal pain, gastritis, intractable hiccups with history of hypertension, diabetes, dementia, urinary tract infection, mood disorder, possibly depression, and weakness. The patient spoke with a communications department chair. The patient apparently has a lot of anxiety because of hiccups and apparently Dr. Hays have him on Lexapro 10 mg a day. The patient was found to have cholecystitis and now his hiccups are gone. Today, he is feeling better. He is sleeping well and eating well. He denies any current intent to harm himself or anyone. He denies any auditory or visual hallucination. The patient needs follow up with the psychiatrist upon discharge. The patient seems to be currently stable. Thank you very much for allowing me to participate in the care of this most interesting gentleman. JOB# [id number]
[2018-12-20] MEDS: D5-0.45NS 1,000 ML IV SCH (04:39)
[2018-12-20 06:16] LABS: ANION GAP 9.2 (7.0-16.0); BUN - UREA NITROGEN 21 mg/dL (7-25); CALCIUM SERUM 7.8 mg/dL (8.6-10.3); CARBON DIOXIDE 25.7 mEq/L (21.0-31.0); CHLORIDE 106 mEq/L (98-107); CREATININE - SERUM 1.7 mg/dL (0.7-1.3); GLUCOSE 145 mg/dL (70-105); POTASSIUM SERUM 3.9 mEq/L (3.5-5.1); SODIUM SERUM 137 mEq/L (136-145)
[2018-12-20] MEDS: INSULIN LISPRO SLIDING SCALE 100 UNITS/ML UNIT SUBQ SCH ×2 (07:03→16:50)
[2018-12-20] MEDS: Lactobacillus Rhamnosus GG 15 Billion CFU CAP.SPRINK PO SCH (08:31)
--- NOTE | 2018-12-20 09:30 | General Progress Note ---
Subjective - Review of Systems Service Date: 12/20/18 Subjective: no abd pain Objective - Results Result Diagrams: 12/19/18 14:25 12/20/18 05:51 Recent Labs: Laboratory Last Values WBC 11.2 Th/cmm (4.8-10.8) H 12/19/18 14:25 RBC 3.97 Mil/cmm (3.80-5.80) 12/19/18 14:25 Hgb 11.4 gm/dL (12-16) L 12/19/18 14:25 Hct 33.9 % (41.0-60) L 12/19/18 14:25 MCV 85.4 fl (80-99) 12/19/18 14:25 MCH 28.8 pg (27.0-31.0) 12/19/18 14:25 MCHC Differential 33.7 pg (28.0-36.0) 12/19/18 14:25 RDW 12.7 % (11.5-20.0) 12/19/18 14:25 Plt Count 293 Th/cmm (150-400) 12/19/18 14:25 MPV 8.0 fl 12/19/18 14:25 Neutrophils % 81.1 % (40.0-80.0) H 12/19/18 14:25 Lymphocytes % 11.7 % (20.0-50.0) L 12/19/18 14:25 Monocytes % 3.7 % (2.0-10.0) 12/19/18 14:25 Eosinophils % 3.1 % (0.0-5.0) 12/19/18 14:25 Basophils % 0.4 % (0.0-2.0) 12/19/18 14:25 PT 10.1 SECONDS (9.5-11.5) 12/14/18 20:15 INR 0.97 (0.5-1.4) 12/14/18 20:15 PTT (Actin FS) 31.1 SECONDS (26.0-38.0) 12/14/18 20:15 Sodium 137 mEq/L (136-145) 12/20/18 05:51 Potassium 3.9 mEq/L (3.5-5.1) 12/20/18 05:51 Chloride 106 mEq/L (98-107) 12/20/18 05:51 Carbon Dioxide 25.7 mEq/L (21.0-31.0) 12/20/18 05:51 Anion Gap 9.2 (7.0-16.0) 12/20/18 05:51 BUN 21 mg/dL (7-25) 12/20/18 05:51 Creatinine 1.7 mg/dL (0.7-1.3) H 12/20/18 05:51 Est GFR ( Amer) TNP 12/20/18 05:51 Est GFR (Non-Af Amer) TNP 12/20/18 05:51 BUN/Creatinine Ratio 12.4 12/20/18 05:51 Glucose 145 mg/dL (70-105) H 12/20/18 05:51 POC Glucose 136 MG/DL (70 - 105) H 12/20/18 05:56 Calcium 7.8 mg/dL (8.6-10.3) L 12/20/18 05:51 Magnesium 2.3 mg/dL (1.9-2.7) 12/14/18 20:15 Total Bilirubin 0.2 mg/dL (0.3-1.0) L 12/17/18 15:15 AST 14 U/L (13-39) 12/17/18 15:15 ALT 20 U/L (7-52) 12/17/18 15:15 Alkaline Phosphatase 61 U/L (34-104) 12/17/18 15:15 B-Natriuretic Peptide 59.2 pg/mL (5.0-100.0) 12/14/18 20:15 Total Protein 5.9 gm/dL (6.0-8.3) L 12/17/18 15:15 Albumin 3.1 gm/dL (4.2-5.5) L 12/17/18 15:15 Globulin 2.8 gm/dL 12/17/18 15:15 Albumin/Globulin Ratio 1.1 (1.0-1.8) 12/17/18 15:15 Triglycerides 170 mg/dL (<150) H 12/14/18 20:15 Cholesterol 132 mg/dL (<200) 12/14/18 20:15 LDL Cholesterol Direct 87 mg/dL (75-193) 12/14/18 20:15 HDL Cholesterol 31 mg/dL (23-92) 12/14/18 20:15 Lipase 27 U/L (11-82) 12/17/18 15:15 Prostate Specific Ag 33.4 ng/mL (0.0-4.0) H 12/14/18 20:20 Urine Source [place] 12/14/18 20:20 Urine Color YELLOW 12/14/18 20:20 Urine Clarity TURBID (CLEAR) 12/14/18 20:20 Urine pH 6.0 (4.6 - 8.0) 12/14/18 20:20 Ur Specific [place] 1.010 (1.005-1.030) 12/14/18 20:20 Urine Protein 30 mg/dL (NEGATIVE) H 12/14/18 20:20 Urine Glucose (UA) 500 mg/dL (NEGATIVE) H 12/14/18 20:20 Urine Ketones NEGATIVE mg/dL (NEGATIVE) 12/14/18 20:20 Urine Blood LARGE (NEGATIVE) H 12/14/18 20:20 Urine Nitrate NEGATIVE (NEGATIVE) 12/14/18 20:20 Urine Bilirubin NEGATIVE (NEGATIVE) 12/14/18 20:20 Urine Urobilinogen 0.2 E.U./dL (0.2 - 1.0) 12/14/18 20:20 Ur Leukocyte Esterase MODERATE (NEGATIVE) H 12/14/18 20:20 Urine RBC 10-25 /hpf (0-5) H 12/14/18 20:20 Urine WBC 6-10 /hpf (0-5) 12/14/18 20:20 Ur Epithelial Cells OCCASIONAL /lpf (FEW) 12/14/18 20:20 Urine Bacteria MODERATE /hpf (NONE SEEN) H 12/14/18 20:20 H. pylori IgA Antibody <9.0 units (0.0-8.9) 12/14/18 20:15 - Physical Exam Vitals and I&O: Vital Signs Temp 98.5 F 12/20/18 08:00 Pulse 65 12/20/18 08:00 Resp 17 12/20/18 08:00 BP 117/68 12/20/18 08:00 Pulse Ox 100 12/20/18 08:00 Intake & Output 12/19/18 12/20/18 12/20/18 18:59 06:59 18:59 Intake Total 750 2000 Output Total 1300 1100 Balance -550 900 Weight (lbs) 73.391 kg 73.799 kg Intake: Intake, IV Amount 100 1100 D5-0.45NS 1,000 ml @ 50 1000 mls/hr IV .Q20H REPLACED BY [facility] Rx#: [id number] Piperacillin Sodium/ 100 100 Tazobact 4.5 gm In Sodium Chloride 0.9% 100 ml @ 100 mls/hr IV Q8HR REPLACED BY [facility] Rx #:[id number] Oral 650 150 Tube Feeding 550 Other 200 Output: Urine 1300 1100 Other: # Bowel Movements 2 1 Stool Characteristics Soft Brown Weight Source Bedscale Bedscale Active Medications: Current Medications Acetaminophen (Tylenol) 650 mg PO Q6HR PRN PRN Reason: Pain or Fever >101 Stop: 02/14/19 17:41 Acetaminophen/Hydrocodone Bitart ([place] 10 Mg/325 Mg) 1 tab PO Q4H PRN PRN Reason: Pain (Severe) Stop: 02/14/19 17:41 Last Admin: 12/19/18 22:23 Dose: 1 tab Docusate Sodium (Colace) 100 mg PO BID REPLACED BY [facility] Stop: 02/15/19 08:59 Last Admin: 12/20/18 08:32 Dose: 100 mg Escitalopram Oxalate (Lexapro) 10 mg PO DAILY REPLACED BY [facility]; Protocol Stop: 02/15/19 08:59 Last Admin: 12/20/18 08:32 Dose: 10 mg Dextrose/Sodium Chloride (D5-0.45ns) 1,000 mls @ 50 mls/hr IV .Q20H REPLACED BY [facility] Stop: 02/13/19 16:05 Last Admin: 12/20/18 04:39 Dose: 50 mls/hr Piperacillin Sod/Tazobactam (Sod 4.5 gm/ Sodium Chloride) 100 mls @ 100 mls/hr IV Q8HR REPLACED BY [facility] Stop: 02/15/19 15:59 Last Admin: 12/20/18 04:35 Dose: 100 mls/hr Vancomycin HCl 1.5 gm/ Sodium (Chloride) 500 mls @ 250 mls/hr IV Q24H REPLACED BY [facility] Stop: 02/17/19 14:59 Last Admin: 12/19/18 15:11 Dose: 250 mls/hr Insulin Human Lispro (Humalog Insulin Sliding Scale) 0 units SUBQ BIDAC REPLACED BY [facility]; Protocol Stop: 02/14/19 07:29 Last Admin: 12/20/18 07:03 Dose: Not Given Lactobacillus Rhamnosus (Culturelle 15b) 1 each PO DAILY [facility]ON[facility] Stop: 02/15/19 08:59 Last Admin: 12/20/18 08:31 Dose: 1 each Miscellaneous (Zosyn Iv Per Pharmacy) 1 ea PRN PRN PRN Reason: PROTOCOL Stop: 02/15/19 15:33 Miscellaneous (Vancomycin Iv Per Pharmacy) 1 ea PRN [facility]ON[facility] Stop: 02/16/19 17:14 Ondansetron HCl (Zofran) 4 mg IV Q6H PRN PRN Reason: Nausea / Vomiting Stop: 02/15/19 11:55 Last Admin: 12/19/18 09:06 Dose: 4 mg Oxycodone/Acetaminophen (Percocet 5/325mg Oral Tab) 1 tab PO Q6H PRN PRN Reason: Abdominal Pain Stop: 02/13/19 14:45 Last Admin: 12/19/18 09:15 Dose: 1 tab Pantoprazole Sodium (Protonix) 40 mg IVP QDAC [facility] Stop: 02/15/19 07:29 Last Admin: 12/20/18 07:01 Dose: 40 mg Abdomen: Tender (RUQ) Assessment/Plan - Assessment Assessment: no abd pain benign abd exam, nontender, no RUQ/epigastric tenderness yesterday WBC 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 but likely benign. HIDA scan is nondiagnostic, no morphine given and not carried out long enough. tolerating solid foot, ate breakfast without incident. - Plan Plan: careful surveillance, do not believe pt is a good candidate for elective laparoscopic cholecystectomy General anesthesia and laparoscopic cholecystectomy not advised here at [facility] given limited resources. repeat cbc continue iv abx empirically continue solid diet as tolerates will follow Nutritional Asmnt/Malnutr-PDOC - Dietary Evaluation Malnutrition Findings (Please click <Entered> for more info): Nutritional Asmnt/Malnutrition Start: 12/16/18 13: 59 Text: Status: Complete Freq: Protocol: Document 12/16/18 13:59 FRANSISCO (Rec: 12/16/18 14:02 FRANSISCO [email or web address]) Nutritional Asmnt/Malnutrition Patient General Information Nutritional Screening Moderate Risk Consult Diagnosis Abdominal Pain Pertinent Medical Hx/Surgical Hx DM, GERD, Dementia, HTN, Arthritis Subjective Information Consult: GERD, DM, Abdominal Pain Pt is a 78-year-old male admitted on 12/14 from intermediate c/o abdominal pain, nausea, and GERD. Pt only speaks/understands English. Pt was NPO 12/15 at Breakfast and Lunch, ate 75% dinner. Although Pt was not feeling well, he ate 100% breakfast this morning. Visited Pt after lunch, Pt was asleep. Pt had a bucket next to him with vomit, RN stated Pt was not feeling great, Pt stated a 10/ 10 stomach pain on 12/15 per Nurse note. Pt is waiting on a GI consult. Will continue to monitor glucose labs, vomiting , and PO intake. Will try to provide nutrition education at another time when Pt is awake and feeling better. HT: 56 WT: 188 LB (85.45 kg) ABW: 154 LB (69.78 kg) BMI: 30.34 (Obese) GI: Abdominal Pain, Large, Round, Bowel sounds normal BM: 12/16 x1 I/O: 1000/3275 (-2275) Skin: WNL, Warm, Dry, Intact Devang: 13 Diet Order: Mechanical Soft, LISY Estimated Energy Needs: ( Geriatric, ABW) 6571-6043 kcals (25-30 kcals/ kg) 70-84Pro (1.0-1.2 g/kg) 4129-9137 ml (25-30 ml/kg) Current Diet Order/ Nutrition Support Mechanical Soft, LISY Pertinent Medications D5-0.45ns, INS-SS, Protonix Pertinent Labs 12/15: Hgb/Hct 12.1/35.7, Ca 8.4 , Glucose 170 POC Glucose (last 24 hours): 161, 187 12/14: T Bili 0.1, AST 10, Alb 3 .3 Nutritional Hx/Data Height 1.68 m Height (Calculated Centimeters) 167.6 Current Weight (lbs) 85.275 kg Weight (Calculated Kilograms) 85.3 Weight (Calculated Grams) 28126.4 [place] Body Weight 142 LB (64.55 kg) % [place] Body Weight 132 Body Mass Index (BMI) 30.3 Weight Status Obese GI Symptoms GI Symptoms Vomitting Last BM 12/16 x1 Skin Integrity/Comment: Skin: WNL, Warm, Dry, Intact Devang: 13 Current %PO Good (75-100%) Estimated Nutritional Goals BEE in Kcals: Adj wt of IBW Calories/Kcals/Kg 25-30 Kcals Calculated 1599-8698 Protein: Adj wt of IBW Protein g/k.0-1.2 Protein Calculated 70-84 Fluid: ml 2042-6845 ml (25-30 ml/kg) Nutritional Problem 1. Problem Problem Altered nutrition related labs Etiology r/t endocrine dysfunction Signs/Symptoms: aeb Glucose 170, POC Glucose ( last 24 hours): 161, 187. Malnutrition Related to Morbid Obesity Malnutrition related to morbid obesity No Intervention/Recommendation Comments 1. Continue with Mechanical Soft, LISY diet as ordered. 2. Consider adding CCHO to diet Rx to support glucose control. 3. Continue antihyperglycemic medications for glucose control per MD order. Expected Outcomes/Goals Expected Outcomes/Goals 1. PO intake to meet 75% of nutritional needs. 2. Monitor PO intake, wt, skin integrity, and nutrition related labs to trend WNL. 3. F/U as moderate risk in 3-5 days, 12/19-12/21
--- NOTE | 2018-12-20 13:09 | GI Progress Note ---
Subjective - Review of Systems Service Date: 12/20/18 Subjective: Denies pain at this time, no vomiting GI OBJECTIVE - Results Result Diagrams: 12/19/18 14:25 12/20/18 05:51 Recent Labs: Laboratory Last Values WBC 11.2 Th/cmm (4.8-10.8) H 12/19/18 14:25 RBC 3.97 Mil/cmm (3.80-5.80) 12/19/18 14:25 Hgb 11.4 gm/dL (12-16) L 12/19/18 14:25 Hct 33.9 % (41.0-60) L 12/19/18 14:25 MCV 85.4 fl (80-99) 12/19/18 14:25 MCH 28.8 pg (27.0-31.0) 12/19/18 14:25 MCHC Differential 33.7 pg (28.0-36.0) 12/19/18 14:25 RDW 12.7 % (11.5-20.0) 12/19/18 14:25 Plt Count 293 Th/cmm (150-400) 12/19/18 14:25 MPV 8.0 fl 12/19/18 14:25 Neutrophils % 81.1 % (40.0-80.0) H 12/19/18 14:25 Lymphocytes % 11.7 % (20.0-50.0) L 12/19/18 14:25 Monocytes % 3.7 % (2.0-10.0) 12/19/18 14:25 Eosinophils % 3.1 % (0.0-5.0) 12/19/18 14:25 Basophils % 0.4 % (0.0-2.0) 12/19/18 14:25 PT 10.1 SECONDS (9.5-11.5) 12/14/18 20:15 INR 0.97 (0.5-1.4) 12/14/18 20:15 PTT (Actin FS) 31.1 SECONDS (26.0-38.0) 12/14/18 20:15 Sodium 137 mEq/L (136-145) 12/20/18 05:51 Potassium 3.9 mEq/L (3.5-5.1) 12/20/18 05:51 Chloride 106 mEq/L (98-107) 12/20/18 05:51 Carbon Dioxide 25.7 mEq/L (21.0-31.0) 12/20/18 05:51 Anion Gap 9.2 (7.0-16.0) 12/20/18 05:51 BUN 21 mg/dL (7-25) 12/20/18 05:51 Creatinine 1.7 mg/dL (0.7-1.3) H 12/20/18 05:51 Est GFR ( Amer) TNP 12/20/18 05:51 Est GFR (Non-Af Amer) TNP 12/20/18 05:51 BUN/Creatinine Ratio 12.4 12/20/18 05:51 Glucose 145 mg/dL (70-105) H 12/20/18 05:51 POC Glucose 136 MG/DL (70 - 105) H 12/20/18 05:56 Calcium 7.8 mg/dL (8.6-10.3) L 12/20/18 05:51 Magnesium 2.3 mg/dL (1.9-2.7) 12/14/18 20:15 Total Bilirubin 0.2 mg/dL (0.3-1.0) L 12/17/18 15:15 AST 14 U/L (13-39) 12/17/18 15:15 ALT 20 U/L (7-52) 12/17/18 15:15 Alkaline Phosphatase 61 U/L (34-104) 12/17/18 15:15 B-Natriuretic Peptide 59.2 pg/mL (5.0-100.0) 12/14/18 20:15 Total Protein 5.9 gm/dL (6.0-8.3) L 12/17/18 15:15 Albumin 3.1 gm/dL (4.2-5.5) L 12/17/18 15:15 Globulin 2.8 gm/dL 12/17/18 15:15 Albumin/Globulin Ratio 1.1 (1.0-1.8) 12/17/18 15:15 Triglycerides 170 mg/dL (<150) H 12/14/18 20:15 Cholesterol 132 mg/dL (<200) 12/14/18 20:15 LDL Cholesterol Direct 87 mg/dL (75-193) 12/14/18 20:15 HDL Cholesterol 31 mg/dL (23-92) 12/14/18 20:15 Lipase 27 U/L (11-82) 12/17/18 15:15 Prostate Specific Ag 33.4 ng/mL (0.0-4.0) H 12/14/18 20:20 Urine Source [place] 12/14/18 20:20 Urine Color YELLOW 12/14/18 20:20 Urine Clarity TURBID (CLEAR) 12/14/18 20:20 Urine pH 6.0 (4.6 - 8.0) 12/14/18 20:20 Ur Specific [place] 1.010 (1.005-1.030) 12/14/18 20:20 Urine Protein 30 mg/dL (NEGATIVE) H 12/14/18 20:20 Urine Glucose (UA) 500 mg/dL (NEGATIVE) H 12/14/18 20:20 Urine Ketones NEGATIVE mg/dL (NEGATIVE) 12/14/18 20:20 Urine Blood LARGE (NEGATIVE) H 12/14/18 20:20 Urine Nitrate NEGATIVE (NEGATIVE) 12/14/18 20:20 Urine Bilirubin NEGATIVE (NEGATIVE) 12/14/18 20:20 Urine Urobilinogen 0.2 E.U./dL (0.2 - 1.0) 12/14/18 20:20 Ur Leukocyte Esterase MODERATE (NEGATIVE) H 12/14/18 20:20 Urine RBC 10-25 /hpf (0-5) H 12/14/18 20:20 Urine WBC 6-10 /hpf (0-5) 12/14/18 20:20 Ur Epithelial Cells OCCASIONAL /lpf (FEW) 12/14/18 20:20 Urine Bacteria MODERATE /hpf (NONE SEEN) H 12/14/18 20:20 H. pylori IgA Antibody <9.0 units (0.0-8.9) 12/14/18 20:15 - Physical Exam Vitals and I&O: Vital Signs Temp 98.5 F 12/20/18 08:00 Pulse 65 12/20/18 08:00 Resp 17 12/20/18 08:00 BP 117/68 12/20/18 08:00 Pulse Ox 100 12/20/18 08:00 Intake & Output 12/19/18 12/20/18 12/20/18 18:59 06:59 18:59 Intake Total 750 2100 Output Total 1300 1100 Balance -550 1000 Weight (lbs) 73.391 kg 73.799 kg Intake: Intake, IV Amount 100 1200 D5-0.45NS 1,000 ml @ 50 1000 mls/hr IV .Q20H [facility] Rx#: [id number] Piperacillin Sodium/ 100 200 Tazobact 4.5 gm In Sodium Chloride 0.9% 100 ml @ 100 mls/hr IV Q8HR [facility] Rx #:[id number] Oral 650 150 Tube Feeding 550 Other 200 Output: Urine 1300 1100 Other: # Bowel Movements 2 1 Stool Characteristics Soft Brown Weight Source Bedscale Bedscale Active Medications: Current Medications Acetaminophen (Tylenol) 650 mg PO Q6HR PRN PRN Reason: Pain or Fever >101 Stop: 02/14/19 17:41 Acetaminophen/Hydrocodone Bitart ([place] 10 Mg/325 Mg) 1 tab PO Q4H PRN PRN Reason: Pain (Severe) Stop: 02/14/19 17:41 Last Admin: 12/19/18 22:23 Dose: 1 tab Docusate Sodium (Colace) 100 mg PO BID [facility] Stop: 02/15/19 08:59 Last Admin: 12/20/18 08:32 Dose: 100 mg Escitalopram Oxalate (Lexapro) 10 mg PO DAILY [facility]; Protocol Stop: 02/15/19 08:59 Last Admin: 12/20/18 08:32 Dose: 10 mg Dextrose/Sodium Chloride (D5-0.45ns) 1,000 mls @ 50 mls/hr IV .Q20H [facility] Stop: 02/13/19 16:05 Last Admin: 12/20/18 04:39 Dose: 50 mls/hr Piperacillin Sod/Tazobactam (Sod 4.5 gm/ Sodium Chloride) 100 mls @ 100 mls/hr IV Q8HR [facility] Stop: 02/15/19 15:59 Last Admin: 12/20/18 12:57 Dose: 100 mls/hr Vancomycin HCl 1.5 gm/ Sodium (Chloride) 500 mls @ 250 mls/hr IV Q24H [facility] Stop: 02/17/19 14:59 Last Admin: 12/19/18 15:11 Dose: 250 mls/hr Insulin Human Lispro (Humalog Insulin Sliding Scale) 0 units SUBQ BIDAC [facility]; Protocol Stop: 02/14/19 07:29 Last Admin: 12/20/18 07:03 Dose: Not Given Lactobacillus Rhamnosus (Culturelle 15b) 1 each PO DAILY [facility]ON[facility] Stop: 02/15/19 08:59 Last Admin: 12/20/18 08:31 Dose: 1 each Miscellaneous (Zosyn Iv Per Pharmacy) 1 [facility] PRN PRN PRN Reason: PROTOCOL Stop: 02/15/19 15:33 Miscellaneous (Vancomycin Iv Per Pharmacy) 1 [facility] PRN ALONDRA Stop: 02/16/19 17:14 Ondansetron HCl (Zofran) 4 mg IV Q6H PRN PRN Reason: Nausea / Vomiting Stop: 02/15/19 11:55 Last Admin: 12/19/18 09:06 Dose: 4 mg Oxycodone/Acetaminophen (Percocet 5/325mg Oral Tab) 1 tab PO Q6H PRN PRN Reason: Abdominal Pain Stop: 02/13/19 14:45 Last Admin: 12/19/18 09:15 Dose: 1 tab Pantoprazole Sodium (Protonix) 40 mg IVP QDAC [facility] Stop: 02/15/19 07:29 Last Admin: 12/20/18 07:01 Dose: 40 mg General: Alert HEENT: Atraumatic Neck: Supple Cardiovascular: Regular rate Abdomen: Bowel sounds, Soft, no Tender, no Hepatomegaly, no Splenomegaly, no Distended, no Rebound, no Mass, no Guarding Assessment/Plan - Assessment Assessment: 78 MALE WITH RUQ PAIN [address] SUGGEST CHOLESYSTITIS LFTS AND LIPASE ARE NORMAL HIDA non diagnostic. LFTs normal, and pain has resolved. 1. Surgical mgmt of acute cholecystitis. 2. If no surgery is planned, diet as tolerated 3. other supportive care as per primary
[2018-12-20] MEDS: Hydrocodone/APAP 10 mg/325 mg Tab PO PRN (13:47)
[2018-12-20] MEDS: Vancomycin HCl 1.5 GM in Sodium Chloride 0.9% 500 ML IV SCH (14:50)
--- NOTE | 2018-12-20 20:58 | Progress Notes ---
DATE: 12/20/[address] Rojas. Case was discussed with staff of the patient, reviewed records. The patient seems to be showing progress. He is no longer having any hiccups. He was found to have cholecystitis and was treated. He is sleeping better, eating better. He denies any current intent to harm himself or anyone. Denies any visual hallucination. The patient needs followup with the psychiatrist upon discharge and needs to stay on his medication, Lexapro. We will continue to work with the patient in group therapy, milieu therapy. Thank you very much for allowing me to participate in the care of this most interesting lady. JOB# [id number]
--- NOTE | 2018-12-20 21:21 | Progress Notes ---
DATE: 12/20/2018 SUBJECTIVE: The patient was seen in his room. The patient is asleep, but easily arousable. Denies any pain or discomfort, appears to be comfortable, feeling better. No episodes of nausea, vomiting or abdominal pain. Otherwise, the patient appears to be in no acute distress. OBJECTIVE: VITAL SIGNS: Temperature 97.8, heart rate 68, blood pressure 122/70, respiration 18, 98% on room air. HEENT: Head is atraumatic and normocephalic. Eyes: Bilateral conjunctivae are clear. Bilateral pupils equal, round and reactive. NECK: Supple. No JVD. CARDIOVASCULAR: S1 and S2, without murmur. PULMONARY: Clear to auscultation. GASTROINTESTINAL: Soft and nontender without guarding. Positive bowel sounds. MUSCULOSKELETAL: No clubbing. No cyanosis noted. ASSESSMENT: 1. Abdominal pain, resolving. 2. Cholecystitis. 3. Diverticulitis. PLAN: HIDA scan was not done. The patient is pending for surgery, eval for possible EGD. We will continue to monitor the patient's condition and behavior and we will do pain management as needed. Treatment plans were discussed with the patient's nurse. Treatment plans were discussed with Dr. Briscoe. JOB# [id number]
[2018-12-20] MEDS: APAP/Oxycodone 5/325mg Tab PO PRN (21:53)
--- NOTE | 2018-12-20 22:58 | Consultation ---
DATE OF CONSULTATION: 12/19/2018 SURGICAL CONSULTATION TIME: 10:03 p.m. HISTORY OF PRESENT ILLNESS: The patient is an 78-year-old male, Jordanian speaking only, complains of initially abdominal pain, hiccups, generalized aches and pain. He on further workup was found to have a CT scan showing pneumobilia and air within the gallbladder. The acute cholecystitis could not be ruled out. HIDA scan was done, nonvisualization of the gallbladder up to 1 hour, but the patient did not cooperate with the remainder of the HIDA scan and so it is essentially a nondiagnostic study, concern for acute cholecystitis and surgical consultation requested. The patient is unable to give much of a history. He has a reported history of gastroesophageal reflux disease, diabetes, hypertension, dementia, UTI, depression, insomnia, generalized weakness. ALLERGIES: He has no known drug allergies. MEDICATIONS: Include Tylenol, calcium carbonate, vitamin D, Colace, Lexapro, pain medication, insulin, acidophilus, lactulose, Megace, Protonix. The patient is on Zosyn at this time and vancomycin. PHYSICAL EXAMINATION: VITAL SIGNS: He is afebrile. His vital signs are stable. He has no icteric sclerae or jaundice. GENERAL: He is somewhat confused. HEENT AND NECK: Otherwise within normal limits. CHEST: Clear to auscultation bilaterally. CARDIAC: Regular rhythm and rate. ABDOMEN: Soft, nontender. He has no fullness of the right upper quadrant and epigastric area. He has no classic Fowler's sign. He has no right upper quadrant tenderness, guarding or rebound or generalized peritoneal signs. NEUROVASCULAR AND EXTREMITIES: Otherwise normal. LABORATORY DATA: His white blood cell count 11.2, H and H 11 and 33.9, platelet count is 293. His creatinine level is 1.7, glucose 196. The CT scan as mentioned on 12/17/2018 reveals pneumobilia air collection in the gallbladder and extensive distention of the common bile duct suggestive of acute cholecystitis. There is no evidence of pericholecystic fluid collection. Significant enlargement of prostate gland with inhomogenous architecture. The HIDA scan shows nonvisualization of the gallbladder up to 1 hour, but the patient was uncooperative with the remainder of the procedure and therefore was nondiagnostic study. IMPRESSION AND PLAN: An 78-year-old male. He denies any abdominal pain or tenderness at this time. He has multiple medical problems. He is Jordanian speaking only, and he is a poor historian. He is afebrile. His white blood cell count shows mild leukocytosis, may be multifactorial. He has a very benign, nontender examination, especially in right upper quadrant epigastric area. I doubt he has acute cholecystitis based on these findings. The HIDA scan is essentially nondiagnostic as study terminated after only 1 hr and morphine iv not administered. I placed a call to Genie Youngontes which is listed on the face sheet, but she did not answer the phone and voice message could not be left. The pneumobilia doubtful related to ischemic bowel as does not have distribution of portovenous gas from ischemic/ gangrene bowel, but if no recent biliary instrumentation, could possibly be related to cholecysto-enteric fistula. no urgency or emergency need for laparoscopic cholecystectomy. JOB# [id number] GET
--- NOTE | 2018-12-21 02:24 | Progress Notes ---
DATE: 12/20/2018 SURGICAL PROGRESS NOTE TIME: 9:18 a.m. SUBJECTIVE: The patient denies any significant abdominal pain. Resting in bed comfortably, ate breakfast. PHYSICAL EXAMINATION: VITAL SIGNS: Afebrile. Vital signs are stable. HEENT AND NECK: Within normal limits. He is somewhat confused. CHEST: Clear to auscultation bilaterally. CARDIAC: Regular rhythm and rate. ABDOMEN: Soft, nontender, nondistended. There is no guarding, rebound or generalized peritoneal signs. He has no Fowler's sign. He has no right upper quadrant epigastric tenderness. NEUROVASCULAR AND EXTREMITIES: Otherwise normal. LABORATORY DATA: No CBC drawn for today. His Chem-7 shows creatinine 1.7, glucose 145, calcium 7.8. MEDICATIONS: The patient is on pain medication, Zosyn, vancomycin, Protonix. IMPRESSION AND PLAN: The patient with some mild dementia given his age [age] years old. He has no significant abdominal pain at this time. He is afebrile. His vital signs are stable. He has a very benign abdominal examination. I have reviewed his abdominal x-ray, CT abdomen and pelvis and HIDA scan and I am not convinced that the patient has acute cholecystitis and warrant surgery. Uncertain whether he had any type of biliary instrumentation recently to explain for the patient's pneumobilia. Certainly, he has no obvious signs of ischemic bowel to explain the biliary pneumobilia. He does not have the classic pneumobilia consistent with portal venous gas with ischemic bowel. 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 His HIDA scan is nondiagnostic because it was not carried out long enough, the patient was uncooperative and therefore is a nondiagnostic study. He is on IV antibiotics at this time. I do not feel that surgery at this time is warranted nor is a percutaneous cholecystostomy. Surveillance is probably warranted at this time. He is tolerating a diet well without any problems. In my opinion, the patient is too high risk and this is probably not the appropriate setting for him to even consider general anesthesia and laparoscopic cholecystectomy anyways. We will follow. [facility]# [id number]
[2018-12-21] MEDS: D5-0.45NS 1,000 ML IV SCH ×2 (03:17→11:07)
[2018-12-21] MEDS: INSULIN LISPRO SLIDING SCALE 100 UNITS/ML UNIT SUBQ SCH ×2 (06:47→16:25)
[2018-12-21] MEDS: Lactobacillus Rhamnosus GG 15 Billion CFU CAP.SPRINK PO SCH (08:37)
--- NOTE | 2018-12-21 10:42 | Internal Medicine Prog Note ---
Internal Medicine Subjective - Subjective Patient is:: awake, verbal, in bed Per staff patient has:: no adverse event, no episodes of fall, tolerating meds Internal Medicine Objective - Results Result Diagrams: 12/19/18 14:25 12/20/18 05:51 Recent Labs: Laboratory Last Values WBC 11.2 Th/cmm (4.8-10.8) H 12/19/18 14:25 RBC 3.97 Mil/cmm (3.80-5.80) 12/19/18 14:25 Hgb 11.4 gm/dL (12-16) L 12/19/18 14:25 Hct 33.9 % (41.0-60) L 12/19/18 14:25 MCV 85.4 fl (80-99) 12/19/18 14:25 MCH 28.8 pg (27.0-31.0) 12/19/18 14:25 MCHC Differential 33.7 pg (28.0-36.0) 12/19/18 14:25 RDW 12.7 % (11.5-20.0) 12/19/18 14:25 Plt Count 293 Th/cmm (150-400) 12/19/18 14:25 MPV 8.0 fl 12/19/18 14:25 Neutrophils % 81.1 % (40.0-80.0) H 12/19/18 14:25 Lymphocytes % 11.7 % (20.0-50.0) L 12/19/18 14:25 Monocytes % 3.7 % (2.0-10.0) 12/19/18 14:25 Eosinophils % 3.1 % (0.0-5.0) 12/19/18 14:25 Basophils % 0.4 % (0.0-2.0) 12/19/18 14:25 PT 10.1 SECONDS (9.5-11.5) 12/14/18 20:15 INR 0.97 (0.5-1.4) 12/14/18 20:15 PTT (Actin FS) 31.1 SECONDS (26.0-38.0) 12/14/18 20:15 Sodium 137 mEq/L (136-145) 12/20/18 05:51 Potassium 3.9 mEq/L (3.5-5.1) 12/20/18 05:51 Chloride 106 mEq/L (98-107) 12/20/18 05:51 Carbon Dioxide 25.7 mEq/L (21.0-31.0) 12/20/18 05:51 Anion Gap 9.2 (7.0-16.0) 12/20/18 05:51 BUN 21 mg/dL (7-25) 12/20/18 05:51 Creatinine 1.7 mg/dL (0.7-1.3) H 12/20/18 05:51 Est GFR ( Amer) TNP 12/20/18 05:51 Est GFR (Non-Af Amer) TNP 12/20/18 05:51 BUN/Creatinine Ratio 12.4 12/20/18 05:51 Glucose 145 mg/dL (70-105) H 12/20/18 05:51 POC Glucose 149 MG/DL (70 - 105) H 12/21/18 05:42 Calcium 7.8 mg/dL (8.6-10.3) L 12/20/18 05:51 Magnesium 2.3 mg/dL (1.9-2.7) 12/14/18 20:15 Total Bilirubin 0.2 mg/dL (0.3-1.0) L 12/17/18 15:15 AST 14 U/L (13-39) 12/17/18 15:15 ALT 20 U/L (7-52) 12/17/18 15:15 Alkaline Phosphatase 61 U/L (34-104) 12/17/18 15:15 B-Natriuretic Peptide 59.2 pg/mL (5.0-100.0) 12/14/18 20:15 Total Protein 5.9 gm/dL (6.0-8.3) L 12/17/18 15:15 Albumin 3.1 gm/dL (4.2-5.5) L 12/17/18 15:15 Globulin 2.8 gm/dL 12/17/18 15:15 Albumin/Globulin Ratio 1.1 (1.0-1.8) 12/17/18 15:15 Triglycerides 170 mg/dL (<150) H 12/14/18 20:15 Cholesterol 132 mg/dL (<200) 12/14/18 20:15 LDL Cholesterol Direct 87 mg/dL (75-193) 12/14/18 20:15 HDL Cholesterol 31 mg/dL (23-92) 12/14/18 20:15 Lipase 27 U/L (11-82) 12/17/18 15:15 Prostate Specific Ag 33.4 ng/mL (0.0-4.0) H 12/14/18 20:20 Urine Source [place] 12/14/18 20:20 Urine Color YELLOW 12/14/18 20:20 Urine Clarity TURBID (CLEAR) 12/14/18 20:20 Urine pH 6.0 (4.6 - 8.0) 12/14/18 20:20 Ur Specific [place] 1.010 (1.005-1.030) 12/14/18 20:20 Urine Protein 30 mg/dL (NEGATIVE) H 12/14/18 20:20 Urine Glucose (UA) 500 mg/dL (NEGATIVE) H 12/14/18 20:20 Urine Ketones NEGATIVE mg/dL (NEGATIVE) 12/14/18 20:20 Urine Blood LARGE (NEGATIVE) H 12/14/18 20:20 Urine Nitrate NEGATIVE (NEGATIVE) 12/14/18 20:20 Urine Bilirubin NEGATIVE (NEGATIVE) 12/14/18 20:20 Urine Urobilinogen 0.2 E.U./dL (0.2 - 1.0) 12/14/18 20:20 Ur Leukocyte Esterase MODERATE (NEGATIVE) H 12/14/18 20:20 Urine RBC 10-25 /hpf (0-5) H 12/14/18 20:20 Urine WBC 6-10 /hpf (0-5) 12/14/18 20:20 Ur Epithelial Cells OCCASIONAL /lpf (FEW) 12/14/18 20:20 Urine Bacteria MODERATE /hpf (NONE SEEN) H 12/14/18 20:20 H. pylori IgA Antibody <9.0 units (0.0-8.9) 12/14/18 20:15 - Physical Exam Vitals and I&O: Vital Signs Temp 96.5 F 12/21/18 08:00 Pulse 62 12/21/18 08:00 Resp 18 12/21/18 08:00 BP 128/76 12/21/18 08:00 Pulse Ox 97 12/21/18 08:00 Intake & Output 12/20/18 12/21/18 12/21/18 18:59 06:59 18:59 Intake Total 750 1300 Output Total 1300 1300 Balance -550 0 Weight (lbs) 161 lb 159 lb 6.4 oz Intake: Intake, IV Amount 100 1100 D5-0.45NS 1,000 ml @ 50 1000 mls/hr IV .Q20H [facility] Rx#: [id number] Piperacillin Sodium/ 100 100 Tazobact 4.5 gm In Sodium Chloride 0.9% 100 ml @ 100 mls/hr IV Q8HR [facility] Rx #:[id number] Oral 650 Other 200 Output: Urine 1300 1300 Other: # Bowel Movements 1 2 Stool Characteristics Soft Brown Weight Source Bedscale Bedscale Active Medications: Current Medications Acetaminophen (Tylenol) 650 mg PO Q6HR PRN PRN Reason: Pain or Fever >101 Stop: 02/14/19 17:41 Acetaminophen/Hydrocodone Bitart ([place] 10 Mg/325 Mg) 1 tab PO Q4H PRN PRN Reason: Pain (Severe) Stop: 02/14/19 17:41 Last Admin: 12/20/18 13:47 Dose: 1 tab Docusate Sodium (Colace) 100 mg PO BID [facility] Stop: 02/15/19 08:59 Last Admin: 12/21/18 08:37 Dose: 100 mg Escitalopram Oxalate (Lexapro) 10 mg PO DAILY [facility]; Protocol Stop: 02/15/19 08:59 Last Admin: 12/21/18 08:37 Dose: 10 mg Dextrose/Sodium Chloride (D5-0.45ns) 1,000 mls @ 50 mls/hr IV .Q20H [facility] Stop: 02/13/19 16:05 Last Admin: 12/21/18 03:17 Dose: 50 mls/hr Piperacillin Sod/Tazobactam (Sod 4.5 gm/ Sodium Chloride) 100 mls @ 100 mls/hr IV Q8HR [facility] Stop: 02/15/19 15:59 Last Admin: 12/21/18 04:46 Dose: 100 mls/hr Vancomycin HCl 1.5 gm/ Sodium (Chloride) 500 mls @ 250 mls/hr IV Q24H [facility] Stop: 02/17/19 14:59 Last Admin: 12/20/18 14:50 Dose: 250 mls/hr Insulin Human Lispro (Humalog Insulin Sliding Scale) 0 units SUBQ BIDAC [facility]; Protocol Stop: 02/14/19 07:29 Last Admin: 12/21/18 06:47 Dose: Not Given Lactobacillus Rhamnosus (Culturelle 15b) 1 each PO DAILY [facility] Stop: 02/15/19 08:59 Last Admin: 12/21/18 08:37 Dose: 1 each Miscellaneous (Zosyn Iv Per Pharmacy) 1 [facility] PRN PRN PRN Reason: PROTOCOL Stop: 02/15/19 15:33 Miscellaneous (Vancomycin Iv Per Pharmacy) 1 [facility] PRN [facility] Stop: 02/16/19 17:14 Ondansetron HCl (Zofran) 4 mg IV Q6H PRN PRN Reason: Nausea / Vomiting Stop: 02/15/19 11:55 Last Admin: 12/19/18 09:06 Dose: 4 mg Oxycodone/Acetaminophen (Percocet 5/325mg Oral Tab) 1 tab PO Q6H PRN PRN Reason: Abdominal Pain Stop: 02/13/19 14:45 Last Admin: 12/20/18 21:53 Dose: 1 tab Pantoprazole Sodium (Protonix) 40 mg IVP QDAC [facility] Stop: 02/15/19 07:29 Last Admin: 12/21/18 06:48 Dose: 40 mg General: weak, alert HEENT: NC/AT, PERRLA Neck: Supple Lungs: CTAB Cardiovascular: RRR, Normal S1, Normal S2 Abdomen: soft, non-tender, tender, non-distended, positive bowel sound Extremities: excoriation Neurological: alert Internal Medicine Assmt/Plan - Assessment Assessment: Abdominal pain- improved Cholecystitis Diverticulitis Mild Arthritis. Gerd. Diabetes. Hypertension. Dementia. Depression. Insomnia. Generalized weakness. - Plan Plan: Continue current treatment plan. Monitor Labs.Continue current medications Continue to monitor VS Monitor Diet/Nutritional support. Pain Management. PT/OT prn Safety precaution, Fall precaution, frequent nursing round. Supportive care. Continue collaborating with consulting specialists, case management and nursing team. Appreciate GI recs: Careful surveillance, do not believe pt is a good candidate for elective laparoscopic cholecystectomy General anesthesia and laparoscopic cholecystectomy not advised here at [facility] given limited resources. Possible dc and schedule elective lap nadira in future vs transfer to Facility with adequate resource for lap nadira. Disposition: possible discharge today. Nutritional Asmnt/Malnutr-PDOC - Dietary Evaluation Malnutrition Findings (Please click <Entered> for more info): Nutritional Asmnt/Malnutrition Start: 12/16/18 13: 59 Text: Status: Complete Freq: Protocol: Document 12/16/18 13:59 FRANSISCO (Rec: 12/16/18 14:02 [email or web address] [email or web address]) Nutritional Asmnt/Malnutrition Patient General Information Nutritional Screening Moderate Risk Consult Diagnosis Abdominal Pain Pertinent Medical Hx/Surgical Hx DM, GERD, Dementia, HTN, Arthritis Subjective Information Consult: GERD, DM, Abdominal Pain Pt is a 78-year-old male admitted on 12/14 from skilled nursing c/o abdominal pain, nausea, and GERD. Pt only speaks/understands [place]. Pt was NPO 12/15 at Breakfast and Lunch, ate 75% dinner. Although Pt was not feeling well, he ate 100% breakfast this morning. Visited Pt after lunch, Pt was asleep. Pt had a bucket next to him with vomit, RN stated Pt was not feeling great, Pt stated a 10/ 10 stomach pain on 12/15 per Nurse note. Pt is waiting on a GI consult. Will continue to monitor glucose labs, vomiting , and PO intake. Will try to provide nutrition education at another time when Pt is awake and feeling better. HT: 56 WT: 188 LB (85.45 kg) ABW: 154 LB (69.78 kg) BMI: 30.34 (Obese) GI: Abdominal Pain, Large, Round, Bowel sounds normal BM: 12/16 x1 I/O: 1000/3275 (-2275) Skin: WNL, Warm, Dry, Intact Devang: 13 Diet Order: Mechanical Soft, LISY Estimated Energy Needs: ( Geriatric, ABW) 8189-4789 kcals (25-30 kcals/ kg) 70-84Pro (1.0-1.2 g/kg) 0654-4544 ml (25-30 ml/kg) Current Diet Order/ Nutrition Support Mechanical Soft, LISY Pertinent Medications D5-0.45ns, INS-SS, Protonix Pertinent Labs 12/15: Hgb/Hct 12.1/35.7, Ca 8.4 , Glucose 170 POC Glucose (last 24 hours): 161, 187 12/14: T Bili 0.1, AST 10, Alb 3 .3 Nutritional Hx/Data Height 5 ft 6 in Height (Calculated Centimeters) 167.6 Current Weight (lbs) 188 lb Weight (Calculated Kilograms) 85.3 Weight (Calculated Grams) 76369.4 [place] Body Weight 142 LB (64.55 kg) % [place] Body Weight 132 Body Mass Index (BMI) 30.3 Weight Status Obese GI Symptoms GI Symptoms Vomitting Last BM 12/16 x1 Skin Integrity/Comment: Skin: WNL, Warm, Dry, Intact Devang: 13 Current %PO Good (75-100%) Estimated Nutritional Goals BEE in Kcals: Adj wt of IBW Calories/Kcals/Kg 25-30 Kcals Calculated 0378-7780 Protein: Adj wt of IBW Protein g/k.0-1.2 Protein Calculated 70-84 Fluid: ml 9295-4586 ml (25-30 ml/kg) Nutritional Problem 1. Problem Problem Altered nutrition related labs Etiology r/t endocrine dysfunction Signs/Symptoms: aeb Glucose 170, POC Glucose ( last 24 hours): 161, 187. Malnutrition Related to Morbid Obesity Malnutrition related to morbid obesity No Intervention/Recommendation Comments 1. Continue with Mechanical Soft, LISY diet as ordered. 2. Consider adding CCHO to diet Rx to support glucose control. 3. Continue antihyperglycemic medications for glucose control per MD order. Expected Outcomes/Goals Expected Outcomes/Goals 1. PO intake to meet 75% of nutritional needs. 2. Monitor PO intake, wt, skin integrity, and nutrition related labs to trend WNL. 3. F/U as moderate risk in 3-5 days, 12/19-12/21
--- NOTE | 2018-12-21 14:21 | Infectious Disease Prog Note ---
Infectious Disease Subjective - Review of Systems Service Date: 12/21/18 Subjective: There is no fever. no new change. Infectious Disease Objective - Results Result Diagrams: 12/19/18 14:25 12/20/18 05:51 Recent Labs: Laboratory Last Values WBC 11.2 Th/cmm (4.8-10.8) H 12/19/18 14:25 RBC 3.97 Mil/cmm (3.80-5.80) 12/19/18 14:25 Hgb 11.4 gm/dL (12-16) L 12/19/18 14:25 Hct 33.9 % (41.0-60) L 12/19/18 14:25 MCV 85.4 fl (80-99) 12/19/18 14:25 MCH 28.8 pg (27.0-31.0) 12/19/18 14:25 MCHC Differential 33.7 pg (28.0-36.0) 12/19/18 14:25 RDW 12.7 % (11.5-20.0) 12/19/18 14:25 Plt Count 293 Th/cmm (150-400) 12/19/18 14:25 MPV 8.0 fl 12/19/18 14:25 Neutrophils % 81.1 % (40.0-80.0) H 12/19/18 14:25 Lymphocytes % 11.7 % (20.0-50.0) L 12/19/18 14:25 Monocytes % 3.7 % (2.0-10.0) 12/19/18 14:25 Eosinophils % 3.1 % (0.0-5.0) 12/19/18 14:25 Basophils % 0.4 % (0.0-2.0) 12/19/18 14:25 PT 10.1 SECONDS (9.5-11.5) 12/14/18 20:15 INR 0.97 (0.5-1.4) 12/14/18 20:15 PTT (Actin FS) 31.1 SECONDS (26.0-38.0) 12/14/18 20:15 Sodium 137 mEq/L (136-145) 12/20/18 05:51 Potassium 3.9 mEq/L (3.5-5.1) 12/20/18 05:51 Chloride 106 mEq/L (98-107) 12/20/18 05:51 Carbon Dioxide 25.7 mEq/L (21.0-31.0) 12/20/18 05:51 Anion Gap 9.2 (7.0-16.0) 12/20/18 05:51 BUN 21 mg/dL (7-25) 12/20/18 05:51 Creatinine 1.7 mg/dL (0.7-1.3) H 12/20/18 05:51 Est GFR ( Amer) TNP 12/20/18 05:51 Est GFR (Non-Af Amer) TNP 12/20/18 05:51 BUN/Creatinine Ratio 12.4 12/20/18 05:51 Glucose 145 mg/dL (70-105) H 12/20/18 05:51 POC Glucose 149 MG/DL (70 - 105) H 12/21/18 05:42 Calcium 7.8 mg/dL (8.6-10.3) L 12/20/18 05:51 Magnesium 2.3 mg/dL (1.9-2.7) 12/14/18 20:15 Total Bilirubin 0.2 mg/dL (0.3-1.0) L 12/17/18 15:15 AST 14 U/L (13-39) 12/17/18 15:15 ALT 20 U/L (7-52) 12/17/18 15:15 Alkaline Phosphatase 61 U/L (34-104) 12/17/18 15:15 B-Natriuretic Peptide 59.2 pg/mL (5.0-100.0) 12/14/18 20:15 Total Protein 5.9 gm/dL (6.0-8.3) L 12/17/18 15:15 Albumin 3.1 gm/dL (4.2-5.5) L 12/17/18 15:15 Globulin 2.8 gm/dL 12/17/18 15:15 Albumin/Globulin Ratio 1.1 (1.0-1.8) 12/17/18 15:15 Triglycerides 170 mg/dL (<150) H 12/14/18 20:15 Cholesterol 132 mg/dL (<200) 12/14/18 20:15 LDL Cholesterol Direct 87 mg/dL (75-193) 12/14/18 20:15 HDL Cholesterol 31 mg/dL (23-92) 12/14/18 20:15 Lipase 27 U/L (11-82) 12/17/18 15:15 Prostate Specific Ag 33.4 ng/mL (0.0-4.0) H 12/14/18 20:20 Urine Source [place] 12/14/18 20:20 Urine Color YELLOW 12/14/18 20:20 Urine Clarity TURBID (CLEAR) 12/14/18 20:20 Urine pH 6.0 (4.6 - 8.0) 12/14/18 20:20 Ur Specific [place] 1.010 (1.005-1.030) 12/14/18 20:20 Urine Protein 30 mg/dL (NEGATIVE) H 12/14/18 20:20 Urine Glucose (UA) 500 mg/dL (NEGATIVE) H 12/14/18 20:20 Urine Ketones NEGATIVE mg/dL (NEGATIVE) 12/14/18 20:20 Urine Blood LARGE (NEGATIVE) H 12/14/18 20:20 Urine Nitrate NEGATIVE (NEGATIVE) 12/14/18 20:20 Urine Bilirubin NEGATIVE (NEGATIVE) 12/14/18 20:20 Urine Urobilinogen 0.2 E.U./dL (0.2 - 1.0) 12/14/18 20:20 Ur Leukocyte Esterase MODERATE (NEGATIVE) H 12/14/18 20:20 Urine RBC 10-25 /hpf (0-5) H 12/14/18 20:20 Urine WBC 6-10 /hpf (0-5) 12/14/18 20:20 Ur Epithelial Cells OCCASIONAL /lpf (FEW) 12/14/18 20:20 Urine Bacteria MODERATE /hpf (NONE SEEN) H 12/14/18 20:20 Vancomycin Trough 17.1 ug/mL (5-10) H 12/21/18 10:59 H. pylori IgA Antibody <9.0 units (0.0-8.9) 12/14/18 20:15 - Physical Exam Vitals and I&O: Vital Signs Temp 96.8 F 12/21/18 13:03 Pulse 81 12/21/18 13:03 Resp 19 12/21/18 13:03 BP 121/70 12/21/18 13:03 Pulse Ox 97 12/21/18 13:03 Intake & Output 12/20/18 12/21/18 12/21/18 18:59 06:59 18:59 Intake Total 750 1400 391.667 Output Total 1300 1300 Balance -550 100 391.667 Weight (lbs) 73.028 kg 72.303 kg Intake: Intake, IV Amount 100 1200 391.667 D5-0.45NS 1,000 ml @ 50 1000 391.667 mls/hr IV .Q20H [facility] Rx#: [id number] Piperacillin Sodium/ 100 200 Tazobact 4.5 gm In Sodium Chloride 0.9% 100 ml @ 100 mls/hr IV Q8HR [facility] Rx #:[id number] Oral 650 Other 200 Output: Urine 1300 1300 Other: # Bowel Movements 1 2 Stool Characteristics Soft Brown Weight Source Bedscale Bedscale Active Medications: Current Medications Acetaminophen (Tylenol) 650 mg PO Q6HR PRN PRN Reason: Pain or Fever >101 Stop: 02/14/19 17:41 Acetaminophen/Hydrocodone Bitart ([place] 10 Mg/325 Mg) 1 tab PO Q4H PRN PRN Reason: Pain (Severe) Stop: 02/14/19 17:41 Last Admin: 12/20/18 13:47 Dose: 1 tab Docusate Sodium (Colace) 100 mg PO BID [facility] Stop: 02/15/19 08:59 Last Admin: 12/21/18 08:37 Dose: 100 mg Escitalopram Oxalate (Lexapro) 10 mg PO DAILY [facility]; Protocol Stop: 02/15/19 08:59 Last Admin: 12/21/18 08:37 Dose: 10 mg Dextrose/Sodium Chloride (D5-0.45ns) 1,000 mls @ 50 mls/hr IV .Q20H [facility] Stop: 02/13/19 16:05 Last Admin: 12/21/18 11:07 Dose: 50 mls/hr Piperacillin Sod/Tazobactam (Sod 4.5 gm/ Sodium Chloride) 100 mls @ 100 mls/hr IV Q8HR [facility] Stop: 02/15/19 15:59 Last Admin: 12/21/18 12:06 Dose: 100 mls/hr Vancomycin HCl 1.5 gm/ Sodium (Chloride) 500 mls @ 250 mls/hr IV Q24H [facility] Stop: 02/17/19 14:59 Last Admin: 12/20/18 14:50 Dose: 250 mls/hr Insulin Human Lispro (Humalog Insulin Sliding Scale) 0 units SUBQ BIDAC [facility]; Protocol Stop: 02/14/19 07:29 Last Admin: 12/21/18 06:47 Dose: Not Given Lactobacillus Rhamnosus (Culturelle 15b) 1 each PO DAILY [facility] Stop: 02/15/19 08:59 Last Admin: 12/21/18 08:37 Dose: 1 each Miscellaneous (Zosyn Iv Per Pharmacy) 1 [facility] PRN PRN PRN Reason: PROTOCOL Stop: 02/15/19 15:33 Miscellaneous (Vancomycin Iv Per Pharmacy) 1 [facility] PRN ALON[facility] Stop: 02/16/19 17:14 Ondansetron HCl (Zofran) 4 mg IV Q6H PRN PRN Reason: Nausea / Vomiting Stop: 02/15/19 11:55 Last Admin: 12/19/18 09:06 Dose: 4 mg Oxycodone/Acetaminophen (Percocet 5/325mg Oral Tab) 1 tab PO Q6H PRN PRN Reason: Abdominal Pain Stop: 02/13/19 14:45 Last Admin: 12/20/18 21:53 Dose: 1 tab Pantoprazole Sodium (Protonix) 40 mg IVP QDAC [facility] Stop: 02/15/19 07:29 Last Admin: 12/21/18 06:48 Dose: 40 mg General: no acute distress, well developed, well nourished HEENT: atraumatic, normocephalic, PERRLA, EOMI Neck: supple, no thyromegaly Cardiovascular: S1S2, regular Lungs: clear to auscultation bilaterally, clear to percussion Abdomen: soft, no tender, no distended Extremities: no cyanosis, no clubbing, no edema Infectious Disease Assmt/Plan - Assessment Assessment: STAPH WARNERI SEPSIS. RECURRENT UTI TYPE 2 DIABETES MELLITUS WITHOUT COMPLICATIONS (12/14/18) UNSPECIFIED DEMENTIA WITHOUT BEHAVIORAL DISTURBANCE (12/14/18) ATELECTASIS (12/14/18) GASTRO-ESOPHAGEAL REFLUX DISEASE WITHOUT ESOPHAGITIS (12/14/18) UNSPECIFIED OSTEOARTHRITIS, UNSPECIFIED SITE (12/14/18) URINARY TRACT INFECTION, SITE NOT SPECIFIED (12/14/18) EPIGASTRIC PAIN (12/14/18) WEAKNESS (12/14/18) - Plan Plan: Continue Vanco IV, repeat blood cs. may give vanco IV for 14 days. ECHO Nutritional Asmnt/Malnutr-PDOC - Dietary Evaluation Malnutrition Findings (Please click <Entered> for more info): Nutritional Asmnt/Malnutrition Start: 12/16/18 13: 59 Text: Status: Complete Freq: Protocol: Document 12/16/18 13:59 FRANSISCO (Rec: 12/16/18 14:02 FRANSISCO [email or web address]) Nutritional Asmnt/Malnutrition Patient General Information Nutritional Screening Moderate Risk Consult Diagnosis Abdominal Pain Pertinent Medical Hx/Surgical Hx DM, GERD, Dementia, HTN, Arthritis Subjective Information Consult: GERD, DM, Abdominal Pain Pt is a 78-year-old male admitted on 12/14 from care home c/o abdominal pain, nausea, and GERD. Pt only speaks/understands [place]. Pt was NPO 12/15 at Breakfast and Lunch, ate 75% dinner. Although Pt was not feeling well, he ate 100% breakfast this morning. Visited Pt after lunch, Pt was asleep. Pt had a bucket next to him with vomit, RN stated Pt was not feeling great, Pt stated a 10/ 10 stomach pain on 12/15 per Nurse note. Pt is waiting on a GI consult. Will continue to monitor glucose labs, vomiting , and PO intake. Will try to provide nutrition education at another time when Pt is awake and feeling better. HT: 56 WT: 188 LB (85.45 kg) ABW: 154 LB (69.78 kg) BMI: 30.34 (Obese) GI: Abdominal Pain, Large, Round, Bowel sounds normal BM: 12/16 x1 I/O: 1000/3275 (-2275) Skin: WNL, Warm, Dry, Intact Devang: 13 Diet Order: Mechanical Soft, LISY Estimated Energy Needs: ( Geriatric, ABW) 9603-3806 kcals (25-30 kcals/ kg) 70-84Pro (1.0-1.2 g/kg) 6367-6869 ml (25-30 ml/kg) Current Diet Order/ Nutrition Support Mechanical Soft, LISY Pertinent Medications D5-0.45ns, INS-SS, Protonix Pertinent Labs 12/15: Hgb/Hct 12.1/35.7, Ca 8.4 , Glucose 170 POC Glucose (last 24 hours): 161, 187 12/14: T Bili 0.1, AST 10, Alb 3 .3 Nutritional Hx/Data Height 1.68 m Height (Calculated Centimeters) 167.6 Current Weight (lbs) 85.275 kg Weight (Calculated Kilograms) 85.3 Weight (Calculated Grams) 29413.4 [place] Body Weight 142 LB (64.55 kg) % [place] Body Weight 132 Body Mass Index (BMI) 30.3 Weight Status Obese GI Symptoms GI Symptoms Vomitting Last BM 12/16 x1 Skin Integrity/Comment: Skin: WNL, Warm, Dry, Intact Devang: 13 Current %PO Good (75-100%) Estimated Nutritional Goals BEE in Kcals: Adj wt of IBW Calories/Kcals/Kg 25-30 Kcals Calculated 7895-5180 Protein: Adj wt of IBW Protein g/k.0-1.2 Protein Calculated 70-84 Fluid: ml 5846-6394 ml (25-30 ml/kg) Nutritional Problem 1. Problem Problem Altered nutrition related labs Etiology r/t endocrine dysfunction Signs/Symptoms: aeb Glucose 170, POC Glucose ( last 24 hours): 161, 187. Malnutrition Related to Morbid Obesity Malnutrition related to morbid obesity No Intervention/Recommendation Comments 1. Continue with Mechanical Soft, LISY diet as ordered. 2. Consider adding CCHO to diet Rx to support glucose control. 3. Continue antihyperglycemic medications for glucose control per MD order. Expected Outcomes/Goals Expected Outcomes/Goals 1. PO intake to meet 75% of nutritional needs. 2. Monitor PO intake, wt, skin integrity, and nutrition related labs to trend WNL. 3. F/U as moderate risk in 3-5 days, 12/19-12/21
[2018-12-21] MEDS: Vancomycin HCl 1.5 GM in Sodium Chloride 0.9% 500 ML IV SCH (14:30)
[2018-12-21 15:27] LABS: % BASOPHILS 0.3 % (0.0-2.0); % EOSINOPHILS 2.8 % (0.0-5.0); % LYMPHOCYTES 20.4 % (20.0-50.0); % MONOCYTES 5.1 % (2.0-10.0); % NEUTROPHILS 71.4 % (40.0-80.0); EOSINOPHILE ABSOLUTE 0.2 Th/cmm (0.1-0.4); HEMATOCRIT 35.1 % (41.0-60); HEMOGLOBIN 11.7 gm/dL (12-16); LYMPHOCYTE ABSOLUTE 1.4 Th/cmm (1.5-3.0); MEAN CORPUSCULAR HEMOGLOBIN 28.6 pg (27.0-31.0); MEAN CORPUSCULAR HGB CONC 33.2 pg (28.0-36.0); MONOCYTE ABSOLUTE 0.3 Th/cmm (0.3-1.0); NEUTROPHILE ABSOLUTE 4.8 Th/cmm (1.8-8.0); PLATELET COUNT 285 Th/cmm (150-400); RED BLOOD COUNT 4.08 Mil/cmm (3.80-5.80); RED CELL DISTRIBUTION WIDTH 13.3 % (11.5-20.0); WHITE BLOOD COUNT 6.7 Th/cmm (4.8-10.8)
--- NOTE | 2018-12-21 16:11 | GI Progress Note ---
Subjective - Review of Systems Service Date: 12/21/18 Subjective: No abd pain GI OBJECTIVE - Results Result Diagrams: 12/21/18 15:10 12/20/18 05:51 Recent Labs: Laboratory Last Values WBC 6.7 Th/cmm (4.8-10.8) 12/21/18 15:10 RBC 4.08 Mil/cmm (3.80-5.80) 12/21/18 15:10 Hgb 11.7 gm/dL (12-16) L 12/21/18 15:10 Hct 35.1 % (41.0-60) L 12/21/18 15:10 MCV 86.0 fl (80-99) 12/21/18 15:10 MCH 28.6 pg (27.0-31.0) 12/21/18 15:10 MCHC Differential 33.2 pg (28.0-36.0) 12/21/18 15:10 RDW 13.3 % (11.5-20.0) 12/21/18 15:10 Plt Count 285 Th/cmm (150-400) 12/21/18 15:10 MPV 8.5 fl 12/21/18 15:10 Neutrophils % 71.4 % (40.0-80.0) 12/21/18 15:10 Lymphocytes % 20.4 % (20.0-50.0) 12/21/18 15:10 Monocytes % 5.1 % (2.0-10.0) 12/21/18 15:10 Eosinophils % 2.8 % (0.0-5.0) 12/21/18 15:10 Basophils % 0.3 % (0.0-2.0) 12/21/18 15:10 PT 10.1 SECONDS (9.5-11.5) 12/14/18 20:15 INR 0.97 (0.5-1.4) 12/14/18 20:15 PTT (Actin FS) 31.1 SECONDS (26.0-38.0) 12/14/18 20:15 Sodium 137 mEq/L (136-145) 12/20/18 05:51 Potassium 3.9 mEq/L (3.5-5.1) 12/20/18 05:51 Chloride 106 mEq/L (98-107) 12/20/18 05:51 Carbon Dioxide 25.7 mEq/L (21.0-31.0) 12/20/18 05:51 Anion Gap 9.2 (7.0-16.0) 12/20/18 05:51 BUN 21 mg/dL (7-25) 12/20/18 05:51 Creatinine 1.7 mg/dL (0.7-1.3) H 12/20/18 05:51 Est GFR ( Amer) TNP 12/20/18 05:51 Est GFR (Non-Af Amer) TNP 12/20/18 05:51 BUN/Creatinine Ratio 12.4 12/20/18 05:51 Glucose 145 mg/dL (70-105) H 12/20/18 05:51 POC Glucose 149 MG/DL (70 - 105) H 12/21/18 05:42 Calcium 7.8 mg/dL (8.6-10.3) L 12/20/18 05:51 Magnesium 2.3 mg/dL (1.9-2.7) 12/14/18 20:15 Total Bilirubin 0.2 mg/dL (0.3-1.0) L 12/17/18 15:15 AST 14 U/L (13-39) 12/17/18 15:15 ALT 20 U/L (7-52) 12/17/18 15:15 Alkaline Phosphatase 61 U/L (34-104) 12/17/18 15:15 B-Natriuretic Peptide 59.2 pg/mL (5.0-100.0) 12/14/18 20:15 Total Protein 5.9 gm/dL (6.0-8.3) L 12/17/18 15:15 Albumin 3.1 gm/dL (4.2-5.5) L 12/17/18 15:15 Globulin 2.8 gm/dL 12/17/18 15:15 Albumin/Globulin Ratio 1.1 (1.0-1.8) 12/17/18 15:15 Triglycerides 170 mg/dL (<150) H 12/14/18 20:15 Cholesterol 132 mg/dL (<200) 12/14/18 20:15 LDL Cholesterol Direct 87 mg/dL (75-193) 12/14/18 20:15 HDL Cholesterol 31 mg/dL (23-92) 12/14/18 20:15 Lipase 27 U/L (11-82) 12/17/18 15:15 Prostate Specific Ag 33.4 ng/mL (0.0-4.0) H 12/14/18 20:20 Urine Source [place] 12/14/18 20:20 Urine Color YELLOW 12/14/18 20:20 Urine Clarity TURBID (CLEAR) 12/14/18 20:20 Urine pH 6.0 (4.6 - 8.0) 12/14/18 20:20 Ur Specific [place] 1.010 (1.005-1.030) 12/14/18 20:20 Urine Protein 30 mg/dL (NEGATIVE) H 12/14/18 20:20 Urine Glucose (UA) 500 mg/dL (NEGATIVE) H 12/14/18 20:20 Urine Ketones NEGATIVE mg/dL (NEGATIVE) 12/14/18 20:20 Urine Blood LARGE (NEGATIVE) H 12/14/18 20:20 Urine Nitrate NEGATIVE (NEGATIVE) 12/14/18 20:20 Urine Bilirubin NEGATIVE (NEGATIVE) 12/14/18 20:20 Urine Urobilinogen 0.2 E.U./dL (0.2 - 1.0) 12/14/18 20:20 Ur Leukocyte Esterase MODERATE (NEGATIVE) H 12/14/18 20:20 Urine RBC 10-25 /hpf (0-5) H 12/14/18 20:20 Urine WBC 6-10 /hpf (0-5) 12/14/18 20:20 Ur Epithelial Cells OCCASIONAL /lpf (FEW) 12/14/18 20:20 Urine Bacteria MODERATE /hpf (NONE SEEN) H 12/14/18 20:20 Vancomycin Trough 17.1 ug/mL (5-10) H 12/21/18 10:59 H. pylori IgA Antibody <9.0 units (0.0-8.9) 12/14/18 20:15 - Physical Exam Vitals and I&O: Vital Signs Temp 96.8 F 12/21/18 13:03 Pulse 81 12/21/18 13:03 Resp 19 12/21/18 13:03 BP 121/70 12/21/18 13:03 Pulse Ox 97 12/21/18 13:03 Intake & Output 12/20/18 12/21/18 12/21/18 18:59 06:59 18:59 Intake Total 1250 1400 391.667 Output Total 1300 1300 Balance -50 100 391.667 Weight (lbs) 73.028 kg 72.303 kg Intake: Intake, IV Amount 600 1200 391.667 D5-0.45NS 1,000 ml @ 50 1000 391.667 mls/hr IV .Q20H [facility] Rx#: [id number] Piperacillin Sodium/ 100 200 Tazobact 4.5 gm In Sodium Chloride 0.9% 100 ml @ 100 mls/hr IV Q8HR [facility] Rx #:[id number] Vancomycin HCl 1.5 gm In 500 Sodium Chloride 0.9% 500 ml @ 250 mls/hr IV Q24H [facility] Rx#:[id number] Oral 650 Other 200 Output: Urine 1300 1300 Other: # Bowel Movements 1 2 Stool Characteristics Soft Brown Weight Source Bedscale Bedscale Active Medications: Current Medications Acetaminophen (Tylenol) 650 mg PO Q6HR PRN PRN Reason: Pain or Fever >101 Stop: 02/14/19 17:41 Acetaminophen/Hydrocodone Bitart ([place] 10 Mg/325 Mg) 1 tab PO Q4H PRN PRN Reason: Pain (Severe) Stop: 02/14/19 17:41 Last Admin: 12/20/18 13:47 Dose: 1 tab Docusate Sodium (Colace) 100 mg PO BID [facility] Stop: 02/15/19 08:59 Last Admin: 12/21/18 08:37 Dose: 100 mg Escitalopram Oxalate (Lexapro) 10 mg PO DAILY [facility]; Protocol Stop: 02/15/19 08:59 Last Admin: 12/21/18 08:37 Dose: 10 mg Dextrose/Sodium Chloride (D5-0.45ns) 1,000 mls @ 50 mls/hr IV .Q20H [facility] Stop: 02/13/19 16:05 Last Admin: 12/21/18 11:07 Dose: 50 mls/hr Piperacillin Sod/Tazobactam (Sod 4.5 gm/ Sodium Chloride) 100 mls @ 100 mls/hr IV Q8HR [facility] Stop: 02/15/19 15:59 Last Admin: 12/21/18 12:06 Dose: 100 mls/hr Vancomycin HCl 1.5 gm/ Sodium (Chloride) 500 mls @ 250 mls/hr IV Q24H [facility] Stop: 02/17/19 14:59 Last Admin: 12/21/18 14:30 Dose: 250 mls/hr Insulin Human Lispro (Humalog Insulin Sliding Scale) 0 units SUBQ BIDAC [facility]; Protocol Stop: 02/14/19 07:29 Last Admin: 12/21/18 06:47 Dose: Not Given Lactobacillus Rhamnosus (Culturelle 15b) 1 each PO DAILY ALONDRA Stop: 02/15/19 08:59 Last Admin: 12/21/18 08:37 Dose: 1 each Miscellaneous (Zosyn Iv Per Pharmacy) 1 [facility] PRN PRN PRN Reason: PROTOCOL Stop: 02/15/19 15:33 Miscellaneous (Vancomycin Iv Per Pharmacy) 1 [facility] PRN ALONDRA Stop: 02/16/19 17:14 Ondansetron HCl (Zofran) 4 mg IV Q6H PRN PRN Reason: Nausea / Vomiting Stop: 02/15/19 11:55 Last Admin: 12/19/18 09:06 Dose: 4 mg Oxycodone/Acetaminophen (Percocet 5/325mg Oral Tab) 1 tab PO Q6H PRN PRN Reason: Abdominal Pain Stop: 02/13/19 14:45 Last Admin: 12/20/18 21:53 Dose: 1 tab Pantoprazole Sodium (Protonix) 40 mg IVP QDAC ALONDRA Stop: 02/15/19 07:29 Last Admin: 12/21/18 06:48 Dose: 40 mg General: Alert, Oriented x3 HEENT: Atraumatic Neck: Supple Cardiovascular: Regular rate Abdomen: Bowel sounds, Soft, no Tender, no Hepatomegaly, no Distended, no Rebound, no Mass Assessment/Plan - Assessment Assessment: 78 MALE WITH RUQ PAIN [address] SUGGEST CHOLESYSTITIS LFTS AND LIPASE ARE NORMAL HIDA non diagnostic. LFTs normal, and pain has resolved. 1. Surgical mgmt of acute cholecystitis. Non operative mgmt has been undertaken which is reasonable given his benign exam and LFTs. Pt will follow with Dr Salas in the clinic 2. If no surgery is planned, diet as tolerated 3. other supportive care as per primary GI to see as needed, please call with questions
--- NOTE | 2018-12-21 22:45 | Progress Notes ---
DATE: 12/21/2018 SUBJECTIVE: Case was discussed with staff of the patient, reviewed records. The patient continues to have poor insight. He is unpredictable, impulsive; however, he is feeling better. No hiccups. He is responding well to redirection. No side effects, no sedation, and no nausea. He is on Lexapro 10 mg a day and he is recovering from cholecystitis uncontrollable hiccups. Thank you very much for allowing me to participate in the care of this most interesting gentleman. JOB# [id number] GET
--- NOTE | 2018-12-22 02:17 | Progress Notes ---
DATE: 12/21/2018 SURGICAL PROGRESS NOTE TIME: 3:02 p.m. OBJECTIVE: GENERAL: Afebrile. VITAL SIGNS: Otherwise stable. CHEST: Clear to auscultation bilaterally. CARDIAC: Regular rate. ABDOMEN: Soft, nontender, nondistended. There is no guarding, rebound or generalized peritoneal signs. He has no right upper quadrant epigastric tenderness. No Fowler sign. HEENT: He has no icteric sclerae or jaundice. NEUROVASCULAR AND EXTREMITIES: Otherwise normal. LABORATORY DATA: No labs drawn today. He is on Zosyn and vancomycin and Percocet p.r.n. pain, Protonix. The patient has other consultants following the patient. Rafat Longo from GI is following the patient and Dr. Espitia from infectious disease standpoint. IMPRESSION AND PLAN: Would repeat the CBC. If normal or lower than before, discharge planning is probably reasonable. Consider p.o. antibiotic course empirically. There is no evidence of acute cholecystitis based on CT scan or HIDA scan, just the pneumobilia, which is probably a chronic finding. The patient can follow up in my office as an outpatient to discuss outpatient laparoscopic cholecystectomy. JOB# [id number]
--- NOTE | 2018-12-29 23:41 | Discharge Summary ---
DATE OF DISCHARGE: 12/21/2018 The patient was admitted on December 14 and discharged on December 21 back to [facility]. HOSPITAL COURSE: An 78-year-old male patient came with abdominal pain, occasional vomiting, and diagnosis of epigastric pain, arthritis, diabetes, hypertension, dementia, UTI was made. The patient was given IV antibiotics, fluids, the patient improved. The patient was in stable condition on 12/21/2018, discharged back to [facility] where I will follow the patient. CONDITION AT THE TIME OF DISCHARGE: Stable. MEDICATIONS: See the reconciliation sheet. ACTIVITY: As tolerated. DIET: As noted in the chart. I will follow the patient. [facility]# [id number]
== END 2018-12-21 20:45 | DRG 871 ==
LOC: ER 19:34 → MSI 22:30
PROVIDERS: ADMIT Internal Medicine; ATTEND Internal Medicine
DX: A41.9 Sepsis, unspecified organism (principal); N17.0 Acute kidney failure with tubular necrosis; K81.0 Acute cholecystitis; N39.0 Urinary tract infection, site not specified; J98.11 Atelectasis; R10.13 Epigastric pain; M19.90 Unspecified osteoarthritis, unspecified site; K21.9 Gastro-esophageal reflux disease without esophagitis; E11.9 Type 2 diabetes mellitus without complications; F03.90 Unspecified dementia, unspecified severity, without behavioral disturbance, psychotic disturbance, mood disturbance, and anxiety; I10 Essential (primary) hypertension; G89.29 Other chronic pain; F32.9 Major depressive disorder, single episode, unspecified; G47.00 Insomnia, unspecified; K29.70 Gastritis, unspecified, without bleeding; R53.1 Weakness
CPT/HCPCS: 36415-UA; 71045-TC; 74019-TC; 78226-TC; 80048-TC; 80053-TC; 80061-TC; 80202-TC; 81001-TC; 82948-90; 83036-90; 83690-TC; 83735-TC; 83880-TC; 84153-90; 85025-TC; 85610-TC; 86677-90; 87086-90; 93005; 96375; A9537; C9113; J0696; J1644; J2405; J2543; J2765; J3370; J3480; J7040; Q9967; Z7610